=== PATIENT | female | born 1945 | race Caucasian/White ===

== ENCOUNTER 2020-04-01 19:06 | Inpatient (IN) | payer MEDICARE, SELFPAY ==
[~2020-04-01] VITALS: Ht 157.5 cm; Wt 55.8 kg
[~2020-04-01 19:06] MED LIST: BUPIVACAINE /DEX PF 0.75% SPINAL 2 ML AMP INJ ONE; LR 1,000 ML IV.SOLN IV ONE; MORPHINE SULFATE 10MG/10ML PF AMP EP ONE; NS IRRIG SOLN 1000 ML IR ONE
[2020-04-01 19:15] VITALS: BP_SYST 165
--- NOTE | 2020-04-01 19:15 | NUR ---
Patient to ER bed 7 to gown for evaluation. Side rails up. Report given to RANJANA.
--- NOTE | 2020-04-01 19:20 | NUR ---
ER at bedside examining patient.
--- NOTE | 2020-04-01 19:25 | NUR ---
Pt biba for bed sores/pressure ulcers. Pt is from home, non verbal, moans to pain, can track w/ her eyes and withdrawal of extremeties to pain. Pt has a hx of Dementia, HTN and hyperlipidemia.
[2020-04-01] MEDS ORDERED: cefTRIAXone 1 GM in D5W 50 ML IV ONE (19:45)
[2020-04-01] MEDS ORDERED: VANCOMYCIN HCL 1,000 MG in NS 250 ML IV ONE (19:45)
[2020-04-01] MEDS ORDERED: metroNIDAZOLE 500 mg/NS 100 ML IV ONE (19:45)
--- NOTE | 2020-04-01 19:50 | NUR ---
technical architect at bed side.
--- NOTE | 2020-04-01 21:00 | NUR ---
Placement done by Dr. Ortez via ultra sound. IV placed #20 gauge angiocath placed to LAC. Use of asceptic technique. Opsite placed over site. No evidence of infiltration noted. Patient tolerated well.
[2020-04-01] MEDS ORDERED: VANCOMYCIN HCL 1000 MG/VIAL IV ONE (21:13)
[2020-04-01] MEDS ORDERED: cefTRIAXone 1 GM IVPB PREMIX 50 ML IV ONE (21:15)
[2020-04-01] MEDS ORDERED: NACL 0.9% 1,000 ML IV ONE ×2 (21:15→23:00)
--- NOTE | 2020-04-01 21:15 | NUR ---
Spoke to granddaughter, stated she care for patient. Pt has a homehealth nurse x 3 time s a week. Pressure ulcers first appeared 07/2019 and have been healing but wounds re opened on 12/2019. Pt was sent to ER today because sores have been increasingly getting worse.
[2020-04-01 21:22] LABS: BASOPHILS # (AUTO) 0.1 K/uL (0.0-0.2); BASOPHILS % (AUTO) 0.4 % (0.0-2.0); EOSINOPHILS # (AUTO) 0.1 K/uL (0.0-0.4); EOSINOPHILS % (AUTO) 0.4 % (0.0-4.0); HEMATOCRIT 27.6 % (36-48); HEMOGLOBIN 8.6 g/dL (12.0-16.0); LYMPHOCYTES # (AUTO) 1.7 K/uL (1.0-5.5); LYMPHOCYTES % (AUTO) 7.1 % (20.5-51.5); MEAN CORPUSCULAR HEMOGLOBIN 26 pg (27-31); MEAN CORPUSCULAR HGB CONC 31 % (32-36); MEAN CORPUSCULAR VOLUME 84 fL (79.0-98.0); MONOCYTES # (AUTO) 1.8 K/uL (0.0-1.0); MONOCYTES % (AUTO) 7.9 % (1.7-9.3); NEUTROPHILS # (AUTO) 19.7 K/uL (1.8-7.7); NEUTROPHILS % (AUTO) 84.2 % (40.0-70.0); PLATELET COUNT (AUTO) 513 K/uL (130-430); RED BLOOD CELL COUNT(AUTO) 3.28 MIL/uL (4.2-6.2); WHITE BLOOD COUNT (AUTO) 23.4 K/uL (4.8-10.8)
[2020-04-01 21:33] LABS: BILIRUBIN,URINE NEGATIVE (NEGATIVE); BLOOD, URINE NEGATIVE (NEGATIVE); CLARITY/URINE SL CLOUDY (CLEAR); COLOR,URINE YELLOW (YELLOW); GLUCOSE,URINE NEGATIVE (NEGATIVE); KETONES,URINE NEGATIVE (NEGATIVE); LEUKOCYTE ESTERASE ,URINE 3+ (NEGATIVE); NITRITE, URINE POSITIVE (NEGATIVE); PH,URINE 7.5 (5.0-8.0); PROTEIN URINE NEGATIVE (NEGATIVE)
[2020-04-01 21:47] LABS: INR 1.3 (0.8-1.2); PROTHROMBIN TIME 12.9 SECS (9.5-12.5)
[2020-04-01 21:48] LABS: ANION GAP 9 (5-15); CHLORIDE 95 mmol/L (98-107); CREATININE 0.55 mg/dL (0.55-1.30); GLUCOSE 110 mg/dL (70-99); SODIUM SERUM 129 mmol/L (136-145); UREA NITROGEN, BLOOD 16 mg/dL (8-21)
[2020-04-01 22:00] LABS: BACTERIA,URINE MANY /HPF (None Seen); RBC,URINE 0-3 /HPF (0-3); WBC,URINE 50-80 /HPF (0-3)
[2020-04-01 22:01] LABS: MUCUS,URINE None Seen /LPF (None Seen); URINE AMORPHOUS PHOSPHATES 2+ /HPF (None Seen)
[2020-04-01 22:03] LABS: ALANINE AMINOTRANSFERASE 215 U/L (12-78); ALBUMIN 1.4 g/dL (3.4-4.8); ASPARTATE AMINOTRANSFERASE 162 U/L (10-37); TOTAL BILIRUBIN 0.3 mg/dL (0.0-1.0)
--- NOTE | 2020-04-01 22:10 | NUR ---
Pt taken to CT via rjayro.
--- NOTE | 2020-04-01 23:11 | NUR ---
Pressure ulcers assessed by . Both pressure ulcers are in diffrent stages. Both ulcers seemed to be in different stages. New dressings recently place by [facility]. Pt position to the L side.
[2020-04-01] MEDS ORDERED: LORazepam 2 MG/ML VIAL IVP PRN (23:15)
[2020-04-01] MEDS ORDERED: HYDROcodone/ACETAMIN 5-325 MG TAB (NORCO/ VICODIN) PO PRN (23:15)
--- NOTE | 2020-04-01 23:23 | NUR ---
Patient will be admitted to care of DR. BLEVINS. Admitted to TELEMENTARY unit. Awaiting placement from charge nurse Wei. Belongings list completed. Complete and up to date summary report printed. SBAR report to be given at bedside with opportunity for questions.
[2020-04-01] MEDS ORDERED: hydrALAZINE HCL 20 MG/ML VIAL IVP PRN (23:45)
[2020-04-02 00:15] VITALS: BP_SYST 145
[2020-04-02 00:30] VITALS: BP_SYST 145
--- NOTE | 2020-04-02 00:30 | NUR ---
pt.receivced via the er-dept.rn has provided the pt's data/info.pt.presents general status stable.[id number].pt.presents g-tube intact patent clamped.pt.presents speech status.non-verbal.pt.presents iv access location;lt.upper bicept,lt.hand;iv fluids infusing pt.assessed.general cutaneous integrity compromised.wounds extant;sacrum,rt/lt hips.bilateral heels;erythema;blanchable.v/s assessed;values w/in normal limits.o2-sat%=98%via o2 therapy via nasal cannulae@the rate;3l/min.call light/telephone w/in reach reach of the pt./ Addendum: 04/02/20 at 0928 by Eber York RN i have photographed the wounds;sacrum,rt/t hips,heels.
--- NOTE | 2020-04-02 01:00 | NUR ---
pt.assessed.pt.assessed for cleanliness.pt.repositioned.i have initiated the iv fluids.d5/ns via the peripheral line:lt.upper arm@the rate:80ml/hr. general status stable.respiratory status stable:02-sat%=98%.per flacc pain mgx pt.absent facial grimaces/body posturing.call light/ telephone placed w/in the reach of the pt.
[2020-04-02] MEDS: D5NS 1,000 ML IV SCH ×2 (01:34→14:22)
[2020-04-02] MEDS ORDERED: metroNIDAZOLE 500 mg/NS 100 ML IV ONE (02:14)
--- NOTE | 2020-04-02 03:00 | NUR ---
pt.assessed.pt.assessed for cleanliness.pt.repositioned.iv access intact patent iv fluids infusing.delarosa cath intact;patent urine content present. per flacc pain mgx pt.absent facial grimaces/body posturing.general status stable.respiratory status stable unlabored o2-sat%= 98%.call light/telephone placed w/in reach of the pt.
--- NOTE | 2020-04-02 05:00 | NUR ---
pt.assessed.pt.assessed for cleanliness.pt.repositioned.iv access intact;patent iv fluids infusing.delarosa cath intact patent urine content present.general status stable.respiratory status stable;unlabored;02-sat%=98%.call light/telephone placed w/in reach of the pt.
[2020-04-02 06:08] LABS: ANION GAP 7 (5-15); CALCIUM 8.2 mg/dL (8.4-11.0); CHLORIDE 102 mmol/L (98-107); GLUCOSE 98 mg/dL (70-99); POTASSIUM 4.3 mmol/L (3.5-5.1); SODIUM SERUM 135 mmol/L (136-145); UREA NITROGEN, BLOOD 12 mg/dL (8-21)
[2020-04-02] MEDS: metroNIDAZOLE 500 mg/NS 100 ML IV SCH ×3 (06:25→21:56)
--- NOTE | 2020-04-02 06:30 | NUR ---
pt.assessed.i have attended to the wound care.i have collected the cx;wounds;sacrum;rt/lt.hips.i have sent to the lab.pt.cleaned, pt.repositioned.i have administered flagyl;abx;ivpb.0600a dose.iv access intact patent iv fluids infusing.call light/telephone placed w/in reach of the pt.pt's grand/dtr has telephoned the unit.i have spokened w the grand/dtr i have apprised the grand dtr of the pt's current general status w/in the parameters of nsg.
--- NOTE | 2020-04-02 07:43 | NUR ---
AM ROUNDS: PATIENT SLEEPING DURING ROUNDS. RECEIVED REPORT FROM NIGHT NURSE JAKI. IV FLUIDS RUNNING AT LEFT UPPER ARM.#2 IV SALINE LOCK AT LEFT HAND. O2 3L/NC,GOOD SATURATION. MARQUES DRAINING TO YELLOW URINE. BED LOCKED AT LOWEST POSITION. BED ALARM ON. CONDITION GUARDED.
--- NOTE | 2020-04-02 07:51 | NUR ---
Nutrition Update Sterling scale 9 noted. Pt admitted for Sepsis and Acute Cholecystis Diet: NPO BMI: 26.6 kg/m2 RD to follow per nutrition care standards.
[2020-04-02 08:28] LABS: BASOPHILS # (AUTO) 0.1 K/uL (0.0-0.2); BASOPHILS % (AUTO) 0.7 % (0.0-2.0); EOSINOPHILS # (AUTO) 0.2 K/uL (0.0-0.4); EOSINOPHILS % (AUTO) 1.1 % (0.0-4.0); HEMATOCRIT 25.7 % (36-48); HEMOGLOBIN 8.2 g/dL (12.0-16.0); LYMPHOCYTES # (AUTO) 1.9 K/uL (1.0-5.5); LYMPHOCYTES % (AUTO) 9.6 % (20.5-51.5); MEAN CORPUSCULAR HEMOGLOBIN 28 pg (27-31); MEAN CORPUSCULAR HGB CONC 32 % (32-36); MEAN CORPUSCULAR VOLUME 87 fL (79.0-98.0); MONOCYTES # (AUTO) 1.8 K/uL (0.0-1.0); MONOCYTES % (AUTO) 9.5 % (1.7-9.3); NEUTROPHILS # (AUTO) 15.3 K/uL (1.8-7.7); NEUTROPHILS % (AUTO) 79.1 % (40.0-70.0); PLATELET COUNT (AUTO) 510 K/uL (130-430); RED BLOOD CELL COUNT(AUTO) 2.95 MIL/uL (4.2-6.2); RED CELL DISTRIBUTION WIDTH 18.9 % (9.0-15.0); WHITE BLOOD COUNT (AUTO) 19.3 K/uL (4.8-10.8)
--- NOTE | 2020-04-02 08:30 | NUR ---
MD ROUNDS: DR BLEVINS SEEN PATIENT IN THE ROOM,BUT UNABLE TO OBTAIN MEDICAL HISTORY DUE TO LIMITED MENTATION.WITH ORDERS FOR SSW TO GET FAMILY NUMBER ,SO HE CAN TALK TO THEM. WITH ORDERS HOLD TUBE FEEDS FOR NOW.
[2020-04-02] MEDS: PANTOPRAZOLE SODIUM 40 MG/VIAL (PROTONIX) IVP SCH (08:57)
--- NOTE | 2020-04-02 09:00 | NUR ---
CONSULTATION PAGED/CALLED Reason for Consultation: PRESURE ULCERS, POSSIBLE ACUTE YAMILA Person Who was Notified: LEFT MESSAGE 09:10 Consulting Physician: ABDIEL SOSA Planishing Hammer Operator Specialty: SURGON Ordering Physician: NARINDER BLEVINS
--- NOTE | 2020-04-02 09:30 | NUR ---
POA UPDATES: SSW F/U WITH DAUGHTER AND SPOKE WITH SONAL MAYS(POA) P#[phone] UPDATES GIVEN AND SAID OKAY TO GIVE RELATED MEDICAL INFORMATION TO THE FOLLOWING PERSONS: INGRID(NIECE) AND TONE MUSEUM EDUCATOR.
--- NOTE | 2020-04-02 09:31 | NUR ---
SS Note Patient referred to [employer] to obtain contact information. Spoke with RN, MT, ED, Admitting. Patient brought in with [facility]. They had the number of the person who called them. Phoned. Contacts: Glen Padilla, daughter, conservator, Wendy Reynolds, granddaughter, caregiver, Shared information with Admitting and notified the number listed for Dr Genie Fontenot, that contact numbers were now available. Face sheet will be updated and new one put in the chart. Patient's insurance updated-[employer]. CM aware.
[2020-04-02 11:34] VITALS: BP_SYST 118
--- NOTE | 2020-04-02 12:00 | NUR ---
DC Planning: Updated pt's status to [facility] dept: s/w Radha, Supervisor Tank Cleaning : dcp for surgery consultation for kim sacrum ulcer with possible I&D and possible acute cholecystitis. The transfer to network is pending on budget consultant's recommendation. Per Radha, the assigned CM will review the case and will call me to get clinical update in am.
--- NOTE | 2020-04-02 13:01 | NUR ---
RN ROUNDS: PATIENT AWAKE,NON VERBAL. O2 MAINTAINED AT 3L/NC. NOT IN ANY RESPIRATORY DISTRESS.
--- NOTE | 2020-04-02 15:30 | NUR ---
WOUND EVALUATION: Wound Consult received from Dr. Fred Fontenot. Thank you, Dr. Fontenot, for the consult. Patient received in a Shaista Bed with an Isoflex MATT mattress, awake, non-verbal, non-responsive to verbal commands. Patient is unable to turn in bed independently. Sterling Score is a 9. Past Medical History: Dementia, non-verbal, bedbound, pressure injuries to Sacral and bilateral hip areas for months. Recent Labs: WBC 19.3, RBC 2.95, hemoglobin 8.2, hematocrit 25.7, sodium 135, albumin 1.4, PT 12.9, INR 1.3. Microbiology: Blood culture results x2 in progress. Urine culture results in progress. Sacral wound culture results in progress. Bilateral hip wound culture results in progress. Intrinsic factors that delay wound healing: Severe Hypoalbuminemia. Extrinsic factors that delay wound healing: Decreased Immobility. Wound Assessment: 1. Sacrococcygeal area: Stage IV pressure ulcer, present on admission. Wound bed has 40% pink tissue, 30% black slough, 30% yellow slough. Mild odor, scant yellow purulent drainage. Sinus tract around 2 o'clock where bone is palpable. Undermining present from 712 o'clock (2.2 cm at 7 o'clock; 5.4 cm at 9 o'clock; 3.4 cm at 12 o'clock). Wound measures 7.5 cm x 9.5 cm x 2.6 cm. Recommend: Cleanse wound with normal saline. Apply moisture barrier cream to maeve-wound. Apply Venelex ointment to wound bed. Place one 2.2 inch TenderWet dressing onto wound bed. Cover with Sacral foam dressing. Perform wound care daily, and as needed for dressing soiling or dislodgement. 2. Left Lateral Hip near Greater Trochanter: Unstageable pressure ulcer, present on admission. Wound bed has 60% yellow slough, 30% black slough, 10% pink tissue. Mild odor, no drainage. Periwound intact. Wound measures 5.5 cm x 6.5 cm x 1.4 cm. Recommend: Cleanse wound with normal saline. Apply moisture barrier cream to maeve-wound. Apply Venelex ointment to wound bed. Place one 1.6 inch TenderWet dressing onto wound bed. Cover with foam dressing. Perform wound care daily, and as needed for dressing soiling or dislodgement. 3. Right Lateral Hip near Greater Trochanter: Unstageable pressure ulcer, present on admission. Wound bed has 70% yellow slough, 30% black slough. Mild odor, no drainage. Periwound intact. Wound measures 4.7 cm x 6.0 cm x 0.8 cm. Recommend: Cleanse wound with normal saline. Apply moisture barrier cream to maeve-wound. Apply Venelex ointment to wound bed. Cover with foam dressing. Perform wound care daily, and as needed for dressing soiling or dislodgement. Also recommend: Reposition patient side to side only every 2 hours with pillow support and off-load pressure areas with pillows for pressure re-distribution. Offload, elevate and float bilateral heels with one pillow lengthwise under each extremity at all times. Perform skin care and monitor skin integrity Q shift. Use moisture barrier cream on buttocks and other moisture susceptible areas QID and as needed for soiling. Maintain patient on a low air-loss mattress.
[2020-04-02 15:37] VITALS: BP_SYST 122
--- NOTE | 2020-04-02 16:24 | NUR ---
SS Note Discussed with Dexter RN, Wound Care nurse. Patient's wounds are severe on both hips and sacrum. The rest of the skin is in good condition and patient does appear to be well cared for overall. It does not seem an APS report is appropriate. However, patient will need more care, maybe a hospital bed, home health or SNF care upon discharge. Patient is covered by [employer] insurance. Discussed with Aj CABRERA
[2020-04-02] MEDS: BALSAM PERU/CASTOR OIL 60 GM OINT...G. TP SCH (16:30)
--- NOTE | 2020-04-02 16:38 | NUR ---
COVID 19 TEST: COVID 19 PCR SPECIMEN AT LEFT NARES,SENT TO LAB.
--- NOTE | 2020-04-02 18:37 | NUR ---
CLOSING NOTES: MAINTAINED ON O2 3L/NC,GOOD SATURATION. IV FLUIDS RUNNING WELL.MARQUES IN SITU.BED LOCKED AT LOWEST POSITION. BED ALARM ON. PRACTICE GUIDELINES MET THROUGH OUT SHIFT.
[2020-04-02 20:39] VITALS: BP_SYST 135
--- NOTE | 2020-04-02 21:15 | NUR ---
DR IAN HARRINGTON here to see patient did Receive new orders .
[2020-04-02] MEDS: cefTRIAXone 1 GM in D5W 50 ML IV SCH (21:56)
[2020-04-02] MEDS: VANCOMYCIN HCL 750 MG in NS 250 ML IV SCH (21:56)
[2020-04-02] MEDS: MORPHINE 2 MG/ML INJ. SYRINGE IVP PRN (22:03)
--- NOTE | 2020-04-02 22:45 | NUR ---
LORIN Bolus BID not able to administer bolus , d/t Gastric Tube connection ports not available , Charge Nurse made aware , will up date .
--- NOTE | 2020-04-02 23:51 | NUR ---
HIDA SCAN FOR THIS AM Patient to be NPO @ midnight / .
--- NOTE | 2020-04-02 23:53 | NUR ---
Turning & Reposition patient on schedule , off loading with pillows comfort measures implemented kept clean & dry as needed .
--- NOTE | 2020-04-03 01:23 | NUR ---
MORPHINE SULFATE 2 MG IVP HELPFUL FOR GENERAL PAIN 04/02/20 @ 3528
[2020-04-03 02:21] VITALS: BP_SYST 129
[2020-04-03 03:37] LABS: TOTAL IRON BIND. CAPACITY 353 ug/dL (250-450)
--- NOTE | 2020-04-03 04:37 | NUR ---
NPO , STATUS FOR AM Procedure HIDA scan .
--- NOTE | 2020-04-03 05:28 | NUR ---
WOUND CARE IMPLEMENTED LEFT & Right Hip & sacrum as ordered , patient tolerated .
[2020-04-03] MEDS: D5NS 1,000 ML IV SCH ×2 (06:07→12:45)
[2020-04-03] MEDS: metroNIDAZOLE 500 mg/NS 100 ML IV SCH ×3 (06:08→22:08)
[2020-04-03 07:18] LABS: BASOPHILS # (AUTO) 0.2 K/uL (0.0-0.2); BASOPHILS % (AUTO) 1.2 % (0.0-2.0); EOSINOPHILS # (AUTO) 0.3 K/uL (0.0-0.4); HEMATOCRIT 29.5 % (36-48); LYMPHOCYTES # (AUTO) 1.7 K/uL (1.0-5.5); LYMPHOCYTES % (AUTO) 11.7 % (20.5-51.5); MEAN CORPUSCULAR HEMOGLOBIN 27 pg (27-31); MEAN CORPUSCULAR HGB CONC 31 % (32-36); MEAN CORPUSCULAR VOLUME 89 fL (79.0-98.0); MONOCYTES # (AUTO) 1.2 K/uL (0.0-1.0); MONOCYTES % (AUTO) 8.2 % (1.7-9.3); NEUTROPHILS % (AUTO) 76.9 % (40.0-70.0); PLATELET COUNT (AUTO) 376 K/uL (130-430); RED BLOOD CELL COUNT(AUTO) 3.31 MIL/uL (4.2-6.2); WHITE BLOOD COUNT (AUTO) 14.3 K/uL (4.8-10.8)
[2020-04-03 07:33] LABS: ALANINE AMINOTRANSFERASE 139 U/L (12-78); ALBUMIN 1.5 g/dL (3.4-4.8); ANION GAP 9 (5-15); ASPARTATE AMINOTRANSFERASE 84 U/L (10-37); CALCIUM 8.8 mg/dL (8.4-11.0); CHLORIDE 106 mmol/L (98-107); CREATININE 0.59 mg/dL (0.55-1.30); GLUCOSE 97 mg/dL (70-99); POTASSIUM 4.5 mmol/L (3.5-5.1); SODIUM SERUM 138 mmol/L (136-145); TOTAL BILIRUBIN 0.4 mg/dL (0.0-1.0); UREA NITROGEN, BLOOD 9 mg/dL (8-21)
[2020-04-03 07:58] VITALS: BP_SYST 151
--- NOTE | 2020-04-03 08:00 | NUR ---
Note Dr Shanita Man at pt's bedside assessing pt at this time. Notified MD that GT is different from what is used in [facility] - unable to given any Bolus or continuous GT feedings at this time. Pt is non verbal and only responds to light stimuli at this time. Pt has been NPO since midnight. No SOB/resp distress or pain/discomfort noted at this time. Tele unit attached and intact at this time. IV in left AC and left hand intact and patent. GT site intact and dry with dressing. No needs noted at this time. Pt next to nurses' station for close observation for needs and care. Call light within reach.
[2020-04-03] MEDS: BALSAM PERU/CASTOR OIL 60 GM OINT...G. TP SCH (08:05)
[2020-04-03] MEDS: PANTOPRAZOLE SODIUM 40 MG/VIAL (PROTONIX) IVP SCH (08:14)
--- NOTE | 2020-04-03 08:25 | NUR ---
Note Pt's wounds were cleaned and dressed by LISHA FOSTER on sacral and left/right hip. Dressing CDI at this time. Pt off the floor via cesia to Nuclear Medicine dept at this time. Addendum: 04/03/20 at 1039 by Rossana Hughes RN IVF's were saline locked Addendum: 04/03/20 at 1040 by Rossana Hughes RN tele unit was removed and put on bedside table.
--- NOTE | 2020-04-03 08:51 | NUR ---
Dietitian Recommendations *Recommend TF Jevity 1.5 continuously via GT at goal rate of 45 ml/hr. Initiate TF at 20 ml/hr and advance by 10 ml q4h until goal rate is reached. FWF 160 ml q6h. -Provides 1620 kcal, 69 g protein, 821 ml free H2O, meeting 91% of upper end of estimated calorie needs and 90% of lower end of estimated protein needs. *Recommend provide Tip BID as modular to provide 14g arginine and 14g glutamate to promote wound healing. Please see Nutrition Assessment for details. REMYRD
--- NOTE | 2020-04-03 10:29 | NUR ---
PAGED PAGED DOCTOR AT [phone] SPOKE WITH KACEY.
--- NOTE | 2020-04-03 11:25 | NUR ---
Note Dr Shanita Man called back and stated pt is stable to be transferred to [facility]. Aj ANGEL called to notify.
[2020-04-03 12:23] LABS: AMYLASE 85 U/L (0-100); LACTATE DEHYDROGENASE 239 U/L (81-234); LIPASE 76 U/L (73-393)
--- NOTE | 2020-04-03 12:35 | NUR ---
Note Pt back fro Nuclear Medicine - HIDA scan. In bed/room. IVF's reconnected and Tele unit reattached. Pt stable. No needs noted at this time. Call light within reach.
--- NOTE | 2020-04-03 12:46 | NUR ---
DC Planning: The pt is stable for transfer to network and per surgery consult: to I/D kim sacrum ulcer, HIDA to confirm Cholecystitis. Covid test is pending. -- JEANNE Stephens is to update [facility] dept and pt's dtr/ Destini # [phone].
--- NOTE | 2020-04-03 13:41 | NUR ---
Anoop w/ Milagro at [place]-Pt is from [facility]-no beds available at [place]-will authorize in pt stay at [place] [facility] for today.
--- NOTE | 2020-04-03 15:50 | NUR ---
Note Pt off the floor via bed to OR for "Debridement of sacral wound with possible Wound vac placement." and "Exchange of GT ". Wound vac and supplies received from Dexter barrel line operator - on pt's bed for surgery.
[2020-04-03 16:31] VITALS: BP_SYST 123
--- NOTE | 2020-04-03 16:57 | NUR ---
CONSULTATION ORDER BY VALERIO Milton FOR CONSULTING TONEY BASSETT FOR CONSULT OF FEEDING
[2020-04-03] MEDS ORDERED: ONDANSETRON HCL 4 MG/2 ML VIAL IVP PRN (17:15)
[2020-04-03] MEDS ORDERED: fentaNYL CITRATE/PF 100 MCG/2 ML AMP IVP PRN ×2 (17:15)
[2020-04-03] MEDS ORDERED: POLYMYXIN 500,000/BACIT.10,000 UNITS in NS IRR 1 L IR ONE (17:48)
--- NOTE | 2020-04-03 18:15 | NUR ---
Note Dr Roberts called and stated he would come and see pt tomorrow. Pt still in OR/PACU
--- NOTE | 2020-04-03 18:26 | NUR ---
Note Pt still in PACU - not on the floor yet.
--- NOTE | 2020-04-03 18:40 | NUR ---
Note Jah (granddaughter) called and an update was given at this time.
[2020-04-03] MEDS ORDERED: ACETAMINOPHEN WITH CODEINE 12.5 ML UDC GT PRN ×2 (19:15)
[2020-04-03 19:20] VITALS: BP_SYST 119
--- NOTE | 2020-04-03 19:20 | NUR ---
Initial note/arrived from OR: Received report from dayshift RN. Patient arrived back to the unit at this time, report received from OR nurse CRISTIAN Young. Patient is resting comfortably in bed. No acute distress, tolerating room air, even and unlabored breathing. IV site noted to left AC and left hand, no infiltration to both sites. Hernandez catheter draining yellow urine to gravity. GJ-tube is clamped. Wound vac noted to right hip, dressings noted to sacrum and left hip. Dressings clean, dry, intact. Call light is with patient. Safety, fall precautions in place. Will continue with plan of care.
[2020-04-03] MEDS: cefTRIAXone 1 GM in D5W 50 ML IV SCH (20:08)
[2020-04-03] MEDS: VANCOMYCIN HCL 750 MG in NS 250 ML IV SCH (20:40)
--- NOTE | 2020-04-03 22:05 | NUR ---
Pain: Patient is awake and appears to be in pain as evidenced by her groaning, squirming in bed, and elevated BP and pulse rate compared to baseline. Morphine 2 MG IV indicated. Medication administered via left upper arm IV site, no infiltration noted. Call light is with patient. Will continue monitoring.
[2020-04-03] MEDS: MORPHINE 2 MG/ML INJ. SYRINGE IVP PRN (22:08)
[2020-04-03 22:30] VITALS: BP_SYST 121
--- NOTE | 2020-04-03 22:50 | NUR ---
Tubefeeding: Endorsed by clint FOSTER that patient's family would drop off tubefeeding equipment from home as patient's GJ-tube is apparently incompatible with in-hospital equipment. Family member Jah was able to drop off a box of Fibersource HN formula, a tubefeeding pump, tubing, and syringes. Informed by Jah that patient receives Fibersource HN at 80 ML/HR via J-tube. Dr. Justin, on-call for Dr. Roberts, was paged for tubefeeding orders. Order received to continue patient's home feeding, but to run Fibersource HN at 50 ML/HR. Verified by read-back, RN to input.
[2020-04-04 00:17] VITALS: BP_SYST 121
--- NOTE | 2020-04-04 01:23 | NUR ---
Rounds: Patient is asleep. Does not show any acute distress. Tolerating room air. IV fluids infusing well. Tubefeeding via J-tube in place. Hernandez catheter draining to gravity. Wound vac in place, dressing is clean, dry, intact. Call light is with patient. Will continue monitoring.
[2020-04-04] MEDS: D5NS 1,000 ML IV SCH (03:46)
--- NOTE | 2020-04-04 04:04 | NUR ---
Rounds: Patient is resting in bed, no acute distress. Tolerating room air. IV site to left upper arm patent and intact, no infiltration. Left hand IV saline locked. Tubefeeding in place as ordered to J-tube, no leaking noted. Wound vac in place, dressings are clean, dry, intact. Hernandez catheter draining to gravity. Call light is with patient. Will continue monitoring.
[2020-04-04] MEDS: metroNIDAZOLE 500 mg/NS 100 ML IV SCH ×2 (05:02→13:56)
--- NOTE | 2020-04-04 06:09 | NUR ---
Closing note: Patient is resting comfortably in bed. No acute distress on room air. Even and unlabored breathing. IV sites benign and intact, IV fluids infusing as ordered. Tubefeeding in place to J-tube per MD order. Hernandez catheter draining well to gravity. Wound vac to right hip in place. Dressings are clean, dry, and intact. All needs met. Safety, fall precautions observed. Call light is with patient. Will endorse care to dayshift RN.
[2020-04-04 07:01] LABS: BASOPHILS # (AUTO) 0.1 K/uL (0.0-0.2); BASOPHILS % (AUTO) 0.4 % (0.0-2.0); EOSINOPHILS # (AUTO) 0.3 K/uL (0.0-0.4); EOSINOPHILS % (AUTO) 1.6 % (0.0-4.0); HEMATOCRIT 24.5 % (36-48); HEMOGLOBIN 7.7 g/dL (12.0-16.0); LYMPHOCYTES # (AUTO) 1.1 K/uL (1.0-5.5); LYMPHOCYTES % (AUTO) 7.2 % (20.5-51.5); MEAN CORPUSCULAR HEMOGLOBIN 27 pg (27-31); MEAN CORPUSCULAR HGB CONC 32 % (32-36); MEAN CORPUSCULAR VOLUME 86 fL (79.0-98.0); MONOCYTES # (AUTO) 1.3 K/uL (0.0-1.0); MONOCYTES % (AUTO) 8.1 % (1.7-9.3); NEUTROPHILS # (AUTO) 13.1 K/uL (1.8-7.7); NEUTROPHILS % (AUTO) 82.7 % (40.0-70.0); PLATELET COUNT (AUTO) 411 K/uL (130-430); RED BLOOD CELL COUNT(AUTO) 2.86 MIL/uL (4.2-6.2); WHITE BLOOD COUNT (AUTO) 15.9 K/uL (4.8-10.8)
[2020-04-04 07:30] VITALS: BP_SYST 132
[2020-04-04 07:35] LABS: ANION GAP 8 (5-15); CALCIUM 8.2 mg/dL (8.4-11.0); CHLORIDE 107 mmol/L (98-107); CREATININE 0.69 mg/dL (0.55-1.30); GLUCOSE 180 mg/dL (70-99); PHOSPHORUS 2.3 mg/dL (2.7-4.5); POTASSIUM 3.5 mmol/L (3.5-5.1); SODIUM SERUM 139 mmol/L (136-145); UREA NITROGEN, BLOOD 9 mg/dL (8-21)
[2020-04-04 08:00] VITALS: BP_SYST 124
[2020-04-04] MEDS: VANCOMYCIN HCL 1 GM/NS PREMIX 250 ML IV SCH ×2 (09:02→21:57)
[2020-04-04] MEDS: BALSAM PERU/CASTOR OIL 60 GM OINT...G. TP SCH (09:11)
[2020-04-04] MEDS: PANTOPRAZOLE SODIUM 40 MG/VIAL (PROTONIX) IVP SCH (09:11)
--- NOTE | 2020-04-04 09:40 | NUR ---
DC Planning: faxed updated progress notes to [facility] de[facility] # [phone]. Unable to speake with [facility], I was on hold for more than 15 mins , will try again.
--- NOTE | 2020-04-04 10:02 | NUR ---
Patient is in bed resting. No signs and symptoms of pain, distress, or shortness of breath. AM care needs met. Spoke with family member regarding patients status. Patient is responsive to light touch. Bed in low position. Two side rails up. Will continue to monitor patient throughout shift.
[2020-04-04] MEDS: MORPHINE 2 MG/ML INJ. SYRINGE IVP PRN (10:35)
[2020-04-04 12:00] VITALS: BP_SYST 124
--- NOTE | 2020-04-04 14:54 | NUR ---
CONSULTATION PAGED REASON FOR CONSULTATION:BACTEREMIA, WOUNDS UTI WAS CONSULT CALLED?Y PERSON WHO WAS NOTIFIED:JOEY CONSULTING PHYSICIAN:CRISTY SOLO BIG DATA ADMIN SPECIALTY:INFECTIOS DISEASE BIG DATA ADMIN PHONE NUMBER:[phone] REQUESTING PHYSICIAN:ESTHER VALDEZ
[2020-04-04] MEDS: NACL 0.9% 1,000 ML IV SCH ×2 (15:00→21:57)
[2020-04-04] MEDS ORDERED: K PHOS 15 MM in NS 250 ML IV ONE (15:00)
[2020-04-04 16:00] VITALS: BP_SYST 134
[2020-04-04] MEDS: ERTAPENEM SODIUM 1 GM in NS 50 ML IV SCH (18:21)
--- NOTE | 2020-04-04 18:45 | NUR ---
Patient is in bed resting. Patient is alert and oriented to herself. Patient is responsive to light touch. Bed in low position. All care needs met. 2 side rails up. Will give report to night nurse.
--- NOTE | 2020-04-04 19:30 | NUR ---
Opening Note: Received report from dayshift nurse. Patient is resting in bed without s/s of respiratory distress or discomfort. She is alert x1 to name. Pt has 20g IV upper arm patent and intact. 20 g LFA was infiltrated and removed. She is on room air with not adventitious breath patterns. Patient is on fiber source @ 50 mL/hr tolerating well. Hernandez catheter draining to gravity. Wound vac is present and draining on right hip with no leaks noted. Dressing is dry, clean, and intact. Patient is laying in bed at 30 degrees. Bed is at lowest position with alarm on.
--- NOTE | 2020-04-04 22:00 | NUR ---
Medication Administration: Patient is resting in bed with no s/s of distress, breathing pattern is regular and unlabored on room air. Vital signs are within normal limits. GJ tube was checked, dressing is intact. There is no residual, flushed with water. Administered Vancomycin as ordered. Attempted to educate patient regarding side effects of antibiotics, but was unable due to A & O X1. Patient is tolerating medication well. Bed is at lowest position with alarm on. Will continue to monitor patient.
[2020-04-05] VITALS: BP_SYST 145
[2020-04-05] MEDS: MORPHINE 2 MG/ML INJ. SYRINGE IVP PRN (00:07)
--- NOTE | 2020-04-05 00:17 | NUR ---
Rounding/Medication: Patient was found moaning and grimacing, FLACC of 8/10. Administered Morphine as ordered. Will reassess patient for effects of medication.
--- NOTE | 2020-04-05 02:00 | NUR ---
Rounding: Patient is resting in bed and appears to be asleep with no s/s of distress or discomfort. Bed is at lowest position and alarm is on. Will continue to monitor patient.
[2020-04-05 06:47] LABS: BASOPHILS # (AUTO) 0.1 K/uL (0.0-0.2); BASOPHILS % (AUTO) 0.9 % (0.0-2.0); EOSINOPHILS # (AUTO) 0.6 K/uL (0.0-0.4); EOSINOPHILS % (AUTO) 3.6 % (0.0-4.0); HEMATOCRIT 26.7 % (36-48); HEMOGLOBIN 8.4 g/dL (12.0-16.0); LYMPHOCYTES # (AUTO) 2.1 K/uL (1.0-5.5); LYMPHOCYTES % (AUTO) 12.8 % (20.5-51.5); MEAN CORPUSCULAR HEMOGLOBIN 27 pg (27-31); MEAN CORPUSCULAR HGB CONC 31 % (32-36); MEAN CORPUSCULAR VOLUME 87 fL (79.0-98.0); MONOCYTES # (AUTO) 1.4 K/uL (0.0-1.0); MONOCYTES % (AUTO) 8.2 % (1.7-9.3); NEUTROPHILS # (AUTO) 12.5 K/uL (1.8-7.7); NEUTROPHILS % (AUTO) 74.5 % (40.0-70.0); PLATELET COUNT (AUTO) 390 K/uL (130-430); RED BLOOD CELL COUNT(AUTO) 3.07 MIL/uL (4.2-6.2); WHITE BLOOD COUNT (AUTO) 16.7 K/uL (4.8-10.8)
--- NOTE | 2020-04-05 07:03 | NUR ---
Closing Note: Patient is resting in bed without s/s of respiratory distress or discomfort. She is alert x1 to name. Pt has 20g IV upper arm patent and intact. She is on room air with not adventitious breath patterns. Patient is on fiber source @ 50 mL/hr tolerating well. Hernandez catheter draining to gravity. Wound vac is present and draining on right hip with no leaks noted. Bed is at lowest position with alarm on. Will endorse care to dayshift nurse.
--- NOTE | 2020-04-05 07:10 | NUR ---
opening note received bedside SBAR from night rn, patient in bed, respirations even non labored, bed in low and locked position, call light within reach,
[2020-04-05 07:12] LABS: ALANINE AMINOTRANSFERASE 76 U/L (12-78); ALBUMIN 1.4 g/dL (3.4-4.8); ANION GAP 8 (5-15); CHLORIDE 111 mmol/L (98-107); CREATININE 0.55 mg/dL (0.55-1.30); GLUCOSE 116 mg/dL (70-99); LACTATE DEHYDROGENASE 189 U/L (81-234); PHOSPHORUS 2.7 mg/dL (2.7-4.5); POTASSIUM 3.7 mmol/L (3.5-5.1); SODIUM SERUM 142 mmol/L (136-145); TOTAL BILIRUBIN 0.2 mg/dL (0.0-1.0); UREA NITROGEN, BLOOD 8 mg/dL (8-21)
[2020-04-05 07:33] LABS: ASPARTATE AMINOTRANSFERASE 39 U/L (10-37)
[2020-04-05 08:00] VITALS: BP_SYST 136
--- NOTE | 2020-04-05 08:00 | NUR ---
nurse notes obtained vs, patient in bed, respirations even, non labored, bed in low and locked position, call light within reach
[2020-04-05] MEDS: PANTOPRAZOLE SODIUM 40 MG/VIAL (PROTONIX) IVP SCH (08:57)
[2020-04-05] MEDS: FUROSEMIDE 40 MG/4 ML VIAL IVP SCH ×2 (08:58→20:38)
[2020-04-05] MEDS: VANCOMYCIN HCL 1 GM/NS PREMIX 250 ML IV SCH ×2 (08:59→20:37)
[2020-04-05] MEDS: BALSAM PERU/CASTOR OIL 60 GM OINT...G. TP SCH (08:59)
--- NOTE | 2020-04-05 09:43 | NUR ---
DC Planning: faxed updated progress notes to [facility] de[facility] # [phone]. Addendum: 04/05/20 at 1051 by Aj Blackman RN >> s/w Tonya, geospatial intelligence analyst/[facility] dept # [phone] that I did not received a call from [place] JEANNE after faxing the clinical report. Per Tonya, Joselyn was assigned yesterday and no assigned for today yet. Tonya requests to continue faxing the update clinical notes that should be fine. Call ref # [id number].
--- NOTE | 2020-04-05 10:00 | NUR ---
Nurse note repositioned patient, provided oral care, no signs of distress or pain, bed in low and locked position, call light within reach
[2020-04-05 12:00] VITALS: BP_SYST 125
--- NOTE | 2020-04-05 12:00 | NUR ---
nurse note repositioned patient, provided Jtube flush as directed. no signs of distress or pain noted, bed in low and locked position, call light within reach
[2020-04-05] MEDS: NACL 0.9% 1,000 ML IV SCH (12:03)
--- NOTE | 2020-04-05 12:15 | NUR ---
nurse note spoke with patients daughter Destini on the phone, provided status of patient and answered all questions, daughter verbalized understanding and had no further questions
--- NOTE | 2020-04-05 14:00 | NUR ---
nurse note repositioned patient, bed in low and locked position, call light within reach, bed alarm on
--- NOTE | 2020-04-05 16:00 | NUR ---
wound care Patient incontinent of bowel, cleansed maeve area, changed linens, provided wound care see MST shift assessment, repositioned patient, no signs of pain or discomfort, bed in low and locked position, call light within reach, bed alarm on
[2020-04-05 16:25] VITALS: BP_SYST 129
[2020-04-05] MEDS: ERTAPENEM SODIUM 1 GM in NS 50 ML IV SCH (17:14)
--- NOTE | 2020-04-05 18:00 | NUR ---
NURSE NOTE REPOSITIONED PATIENT, BED IN LOW AND LOCKED POSITION, CALL LIGHT WITHIN REACH, BED ALARM ON, CALLED DAUGHTER SONAL, VIA FACE TIME AND ASSISTED PATIENT WITH PHONE CALL Addendum: 04/05/20 at 1815 by Leandra Mckeon RN FLUSHED JTUBE WITH 100ML WATER DIRECTED
--- NOTE | 2020-04-05 19:15 | NUR ---
CLOSING NOTE PROVIDED BEDSIDE SBAR TO NIGHT RN, PATIENT IN BED, RESPIRATIONS EVEN NON LABORED, BED IN LOW AND LOCKED POSITION, CALL LIGHT WITHIN REACH, BED ALARM ON
--- NOTE | 2020-04-05 19:30 | NUR ---
Opening Note: Received report from dayshift nurse. Patient is resting in bed without s/s of respiratory distress or discomfort. She is alert x1 to name. Pt has 20g IV upper arm patent and intact. She is on room air with no adventitious breathing patterns. Patient is on fiber source @ 50 mL/hr tolerating well. Hernandez catheter draining to gravity. Wound vac is present and draining on right hip with no leaks noted. Dressings are dry, clean, and intact. Patient is laying in bed at 30 degrees. Bed is at lowest position with alarm on.
[2020-04-05 20:00] VITALS: BP_SYST 150
--- NOTE | 2020-04-05 20:35 | NUR ---
Medication Administration: Patient is resting in bed, vital signs are WNL. She is not exhibiting any s/s of distress or discomfort. Medications were administered at ordered. GJ tube was checked, no residual. Patient is tolerating tube feeding well. Bed is at lowest position with alarm on. Will continue to monitor.
--- NOTE | 2020-04-05 20:48 | NUR ---
Dr. Durham at bedside seen and examined patient. Assessed wound. Stated he was going to order wound vac for tomorrow for left hip and sacral wounds and for Dexter, wound care nurse, to see patient. Informed Dr. Durham about patient having cool extremities on left side. Pulses are present. Right extremities are warm, in comparison. Pulses present. Patient tolerating feeding, with no residual noted. MD stated he will look at chart. No new orders received. Will check chart for any new orders.
--- NOTE | 2020-04-05 23:00 | NUR ---
Rounding: Patient is resting in bed with no s/s of distress or discomfort. She is tolerating breathing on room air. Bed alarm is on and at lowest position. Will continue to monitor.
[2020-04-06] VITALS (12 sets, daily range): BP systolic 77–145
--- NOTE | 2020-04-06 00:10 | NUR ---
Nursing Note: Yodit BROOKS reported pt's blood pressure was low. Patient appeared to be resting in bed and had not s/s of distress. Lasix had been given during med pass. Patient's feeding was stopped and placed on decreased HOB to 20 and elevated legs. Rechecked pt's blood pressure and was 145/74 HR 84 RR 20. Will continue to monitor.
--- NOTE | 2020-04-06 01:07 | NUR ---
Rounding: Patient is resting in bed with no s/s of distress or discomfort. Will continue to monitor patient. Bed is at lowest position with alarm on.
--- NOTE | 2020-04-06 01:15 | NUR ---
Nursing Note: Reposition pt's bed and elevated HOB to 30 degrees and resumed tube feeding. Will continue to monitor pt's blood pressure.
--- NOTE | 2020-04-06 01:20 | NUR ---
Nursing Note: Patient's blood pressure dropped to 77/46 HR 93. GJ tube feeding was stopped and pt's head of bed was lowered to and legs elevated. Reposition and repeated blood pressure. Patient's blood pressure was 128/83 HR 93. Patient is not exhibiting any s/s of distress and has regular breathing pattern on room air. Will continue to monitor patient.
--- NOTE | 2020-04-06 02:14 | NUR ---
Nursing Note: Patient is resting in bed at lowest position. She is not exhibiting any s/s of discomfort or distress. Vital signs are within latonya limits. Will continue to monitor pt's blood pressure.
--- NOTE | 2020-04-06 04:15 | NUR ---
Nursing Note: Patient is resting in bed at lowest position. She is not exhibiting any s/s of discomfort or distress. Vital signs are within normal limits. GJ tube feeding is running and patient tolerating well. Will continue to monitor.
--- NOTE | 2020-04-06 06:19 | NUR ---
Closing Note: Patient is resting in bed without s/s of respiratory distress or discomfort. She is alert x1 to name. Pt has 20g IV upper arm patent and intact. She is on room air with not adventitious breath patterns. Patient is on fiber source @ 50 mL/hr tolerating well. Hernandez catheter draining to gravity. Wound vac is present and draining on right hip with no leaks noted. Bed is at lowest position with alarm on. All needs were met throughout shift. Will endorse care to dayshift nurse.
[2020-04-06 07:09] LABS: BASOPHILS # (AUTO) 0.1 K/uL (0.0-0.2); BASOPHILS % (AUTO) 0.5 % (0.0-2.0); EOSINOPHILS # (AUTO) 0.2 K/uL (0.0-0.4); EOSINOPHILS % (AUTO) 1.7 % (0.0-4.0); HEMATOCRIT 27.8 % (36-48); HEMOGLOBIN 8.9 g/dL (12.0-16.0); LYMPHOCYTES # (AUTO) 1.6 K/uL (1.0-5.5); LYMPHOCYTES % (AUTO) 11.2 % (20.5-51.5); MEAN CORPUSCULAR HEMOGLOBIN 27 pg (27-31); MEAN CORPUSCULAR HGB CONC 32 % (32-36); MEAN CORPUSCULAR VOLUME 86 fL (79.0-98.0); MONOCYTES # (AUTO) 0.8 K/uL (0.0-1.0); MONOCYTES % (AUTO) 5.6 % (1.7-9.3); NEUTROPHILS # (AUTO) 11.6 K/uL (1.8-7.7); PLATELET COUNT (AUTO) 404 K/uL (130-430); RED BLOOD CELL COUNT(AUTO) 3.24 MIL/uL (4.2-6.2); RED CELL DISTRIBUTION WIDTH 19.2 % (9.0-15.0); WHITE BLOOD COUNT (AUTO) 14.4 K/uL (4.8-10.8)
[2020-04-06 07:23] LABS: ANION GAP 5 (5-15); CALCIUM 8.5 mg/dL (8.4-11.0); CHLORIDE 107 mmol/L (98-107); CREATININE 0.64 mg/dL (0.55-1.30); GLUCOSE 126 mg/dL (70-99); PHOSPHORUS 2.4 mg/dL (2.7-4.5); POTASSIUM 3.5 mmol/L (3.5-5.1); SODIUM SERUM 140 mmol/L (136-145); UREA NITROGEN, BLOOD 8 mg/dL (8-21)
--- NOTE | 2020-04-06 07:40 | NUR ---
Opening note Received patient from rn shift mgr nurse, Patient resting in bed, a/o x1 nonverbal, no distress noted, IV site is patent and infusing well, patient is tolerating oxygen on room air, J tube intact clean dry dressing and running feedings as ordered, delarosa catheter intact and draining by gravity, wound vac intact and draining. Patient in stable condition, safety fall aspiration and contact precaution placed, bed locked in lowest position, call light within reach, will continue to monitor patient for any changes.
--- NOTE | 2020-04-06 08:05 | NUR ---
MD Rounds Dr Domínguez making his rounds, aware of patient's condition, new orders received, will follow through with new orders.
[2020-04-06] MEDS: VANCOMYCIN HCL 1 GM/NS PREMIX 250 ML IV SCH ×2 (08:09→21:52)
[2020-04-06] MEDS: PANTOPRAZOLE SODIUM 40 MG/VIAL (PROTONIX) IVP SCH (08:10)
[2020-04-06] MEDS: BALSAM PERU/CASTOR OIL 60 GM OINT...G. TP SCH (08:10)
--- NOTE | 2020-04-06 09:54 | NUR ---
Nutrition F/U Admitting Diagnosis: Sepsis and Acute Cholecystis Medical History Comment: PMH: Dementia, non-verbal, bed bound Pt also found w/ Dysphagia, G-tube dependant, Hepatomegaly, Cardiomegaly, and multiple pressure injuries per MD note. 04/04 S/P debridement sacral decub ulcer 04/05 tolerating Jtube feeding, Fibersource is being provided by family. 04/02: COVID-19 PCR Negative Subjective Information: Nutrition Consult for malnutrition received 04/05 2105. Pt is POD#3 S/P I&D w/ wound vac. Current EN at 50ml/hr provides 1440 kcal, 65gm protein which meets 81% of upper end of estimated calorie needs and 64% of upper end of estimated protein needs. Per Production Lead note: pt w/ Stage IV PI and unstageable PI's. Pt may benefit from Tip for wound healing and Prosource for additional protein daily. RD tried to place phone call to Fred Chung [phone], but phone# does not seem to be active. RD s/w pt's Destini SUAREZ who agreed w/ RD rec for modulars for wound healing. RN reported that there are plans to discharge pt soon, tolerating EN well, no residual this morning and that pt is pending 2 more wound vac placements. RD to follow per nutrition care standards. RD visit has been deferred d/t pt is in Isolation room and lack of PPE. Current Diet Order/Nutrition Support: Jevity 1.2 at 50ml/hr, FWF 100ml Q6H via JT. Fibersource is provided by the family. Pertinent Medications: Protonix IV, vancomycin Pertinent Labs 04/06 WBC 14.4H, Na 140WNL, K 3.5WNL, BUN 8WNL, CRE 0.64WNL, BG 126H Weight (821): 123 pounds/ 55.450955 kilograms Skin Integrity Comment: Sterling scale 9. WCS note reviewed -- Stage 4 PI Sacrococcygeal area and Unstageable Pressure Injuries on bilateral hip; Bilateral generalized pitting edema noted per EMR Current % PO N/A, NPO Estimated Energy Expenditure (kcals/day) 6475-7094 kcal (30-35 kcal/kg adj. IBW for sepsis, pressure ulcers) Estimated Protein Required (g/day) 77-102 g pro/day (1.5-2.0 g pro/kg adj. IBW for sepsis, pressure ulcers) Estimated Fluid Required (l/day) 8616-8668 ml/day (1ml/kcal/day for normal maintenance) Problem/Etiology/Signs/Symptoms Inadequate protein energy intake related to increased nutritional demands as evidenced by sepsis. (*modified 04/06) Expected Outcomes/Goals Monitor EN support and EN tolerance w/ goal of pt meeting at least 75% of estimated needs, labs trending WNL, normal GI function, skin integrity, and weight maintenance. Dietitian Recommendations *Recommend add Tip BID, Prosource once daily for wound healing. *Continue w/ Fibersource at 50ml/hr via JT. Provides: 1660 kcal, 87gm protein and 1398ml fluids daily Meets: 93% of upper end of estimated calorie needs and 85% of upper end of estimated protein needs. Follow Up High Risk: F/U in 2-3days
--- NOTE | 2020-04-06 10:10 | NUR ---
Dietitian Recommendations *Recommend add Tip BID, Prosource once daily for wound healing. *Continue w/ Fibersource at 50ml/hr via JT. Provides: 1660 kcal, 87gm protein and 1398ml fluids daily Meets: 93% of upper end of estimated calorie needs and 85% of upper end of estimated protein needs. Please see Nutrition F/U note for details. [facility], RD
--- NOTE | 2020-04-06 10:21 | NUR ---
RN Rounds Patient resting in bed, patient was repositioned in bed, cleaned and changed, oral care done, patient tolerated well, patient tolerated oxygen in room air well, patient in stable condition, safety measures maintained, call light within reach, fall, contact, and aspiration precautions placed. Will continue to monitor patient.
--- NOTE | 2020-04-06 11:00 | NUR ---
MD ROUNDS: DR. SANFORD MAKING HIS ROUNDS. AWARE OF PATIENTS CONDITION. NO NEW ORDERS GIVEN.
[2020-04-06] MEDS: NACL 0.9% 1,000 ML IV SCH (11:50)
--- NOTE | 2020-04-06 12:10 | NUR ---
WOUND RE-EVALUATION: Late note for 04/06/2020 at 1210 secondary to patient care. Patient received in a Shaista Bed with an Isoflex MATT mattress, awake, non-verbal, non-responsive to verbal commands. Patient is unable to turn in bed independently. Sterling Score is a 9. Past Medical History: Dementia, non-verbal, bedbound, pressure injuries to Sacral and bilateral hip areas for months. Recent Labs: WBC 14.4, RBC 3.24, hemoglobin 8.9, hematocrit 27.8, sodium 140, albumin 1.4, glucose 126. Microbiology: Blood culture results x2 in progress. Urine culture results positive for E. coli (ESBL). Sacral wound culture and Bilateral hip wound culture results positive for Staphylococcus aureus and Enterococcus faecalis. Intrinsic factors that delay wound healing: Severe Hypoalbuminemia. Extrinsic factors that delay wound healing: Decreased Immobility. Wound Assessment: 1. Sacrococcygeal area: Stage IV pressure ulcer, present on admission. Wound bed has 30% dark red tissue, 70% yellow slough. Mild odor, scant yellow purulent drainage. Sinus tract around 2 o'clock where bone is palpable. Undermining present from 82 o'clock (5.4 cm at 8 o'clock; 2.0 cm at 9 o'clock; 2.5 cm at 2 o'clock). Wound measures 9.0 cm x 10.0 cm x 3.8 cm. 2. Left Lateral Hip near Greater Trochanter: Unstageable pressure ulcer, present on admission. Wound bed has 85% yellow slough, 5% black slough, 10% dark red tissue. Mild odor, no drainage. Undermining present (100%) - (0.4 cm at 12 o'clock; 0.6 cm at 3 o'clock; 0.8 cm at 6 o'clock; 0.3 cm at 9 o'clock). Wound measures 6.5 cm x 7.5 cm x 1.4 cm. Recommend: Cleanse wounds with normal saline. Apply SurePrep to maeve-wounds and surrounding tissue. Apply Venelex ointment to wound beds. Cut black granufoam dressing to size and place onto wound beds. Cover with Vac drape. Make a bridge from Left Lateral Hip wound to Sacral wound: Apply sure prep to non-bony portion of skin in between both wounds, apply Vac drape to area. Cut a hole into each dressing and insert into hole in each black Granufoam dressing and run across VAC drape. Cover bridged area in between sacral and left lateral hip wounds with more VAC drape. Cut a hole into middle section of Vac drape and attach VAC suction attachment. Run VAC at 125 mmHg continuous, medium ramp. Perform wound care q Monday/Monday/Monday, and as needed for dressing soiling or dislodgement. 3. Right Lateral Hip near Greater Trochanter: Unstageable pressure ulcer, present on admission. Wound bed has 40% yellow slough, 60% dark red tissue. Mild odor, no drainage. Undermining present from 114 o'clock (0.3 cm at 11 o'clock; 0.6 cm at 12 o'clock; 0.1 cm at 4 o'clock). Wound measures 5.0 cm x 7.0 cm x 1.4 cm. Recommend: Cleanse wound with normal saline. Apply SurePrep to maeve-wound and surrounding tissue. Apply Venelex ointment to wound bed. Cut black granufoam dressing to size and place onto wound bed. Cover with Vac Drape. Cut a hole into Vac dressing and attach VAC suction attachment. Run VAC at 125 mmHg continuous, medium ramp. Perform wound care q Monday/Monday/Monday, and as needed for dressing soiling or dislodgement. Also recommend continue: Reposition patient side to side only every 2 hours with pillow support and off-load pressure areas with pillows for pressure re-distribution. Offload, elevate and float bilateral heels with one pillow lengthwise under each extremity at all times. Perform skin care and monitor skin integrity Q shift. Use moisture barrier cream on buttocks and other moisture susceptible areas QID and as needed for soiling. Maintain patient on a low air-loss mattress.
--- NOTE | 2020-04-06 12:10 | NUR ---
RN ROUNDS/ WOUND CARE: PATIENT IS AWAKE LAYING DOWN IN BED. PATIENT IS TOLERATING OXYGEN ON ROOM AIR WITH NO SIGNS OF DISTRESS OR SHORTNESS OF BREATH NOTED. IV SITE IS PATENT WITH NO SIGNS OF INFILTRATION NOTED. J-TUBE INTACT. MARQUES DRAINING BY GRAVITY. WOUND CARE PERFORMED. WOUND VAC CHANGED. PATIENT TOLERATED IT WELL. PATIENT CLEANED, CHANGED AND REPOSITIONED. PATIENT IN STABLE CONDITION. SAFETY, FALL, ASPIRATION AND CONTACT PRECAUTIONS ARE IN PLACE. BED LOCKED IN LOWEST POSITION WITH CALL LIGHT IN REACH. WILL CONTINUE TO MONITOR PATIENT FOR ANY CHANGES.
--- NOTE | 2020-04-06 13:50 | NUR ---
MD CALLED: SPOKE WITH DR. SOSA. INFORMED MD OF WOUND VAC PLACEMENT. MD AWARE OF PATIENT'S CONDITION. NO NEW ORDERS GIVEN.
--- NOTE | 2020-04-06 14:01 | NUR ---
RN ROUNDS: PATIENT IS AWAKE LAYING DOWN WATCHING TELEVISION. PATIENT IS TOLERATING OXYGEN ON ROOM AIR WITH NO SIGNS OF DISTRESS OR SHORTNESS OF BREATH NOTED. IV SITE IS PATENT. WOUND VAC INTACT. MARQUES INTACT AND DRAINING BY GRAVITY. G/J TUBE INTACT AND RUNNING FEEDING ORDERED. PATIENT IN STABLE CONDITION. SAFETY, FALL, ASPIRATION AND CONTACT PRECAUTIONS ARE IN PLACE. BED LOCKED IN LOWEST POSITION WITH CALL LIGHT IN REACH. WILL CONTINUE TO MONITOR PATIENT FOR ANY CHANGES.
--- NOTE | 2020-04-06 14:09 | NUR ---
DC PLANNING Order for dc planning to SNF for IV abx & Wound care(wound vac). Called & spoke discussed dc plan with dtr Destini Randy, ph [phone], [facility] did discuss with Dr Domínguez this morning. [facility] has discussed with family & are in agreement with short term SNF. Would like pt to go to SNF in [facility], & does not want a Covid SNF. If transfer to contracted hospital needed agreeable with preference with [facility] Pt normally goes to [facility] but has not been happy with care of pt's wound there so prefers [facility]. Called & spoke with Prasanna Bedoya learning analyst. Pt was not assigned CM since pt is auth'd to stay here until tomorrow 04/07. Informed that have dc planning order for SNF. Case was assigned to Rainelle JEANNE Snider & Skip Pitman Margaret. Received call from Agatha & informed of family request. Will look for contracted SNF in [facility], will try to find Covid free SNF for anticipated discharge tomorrow.
--- NOTE | 2020-04-06 16:15 | NUR ---
RN Rounds Patient asleep at this time, respirations even and unlabored, safety measures maintained, call light within patient reach, bed at lowest position, fall and aspiration precautions in place.
[2020-04-06] MEDS: ERTAPENEM SODIUM 1 GM in NS 50 ML IV SCH (16:58)
--- NOTE | 2020-04-06 18:00 | NUR ---
FACE TIME: FACETIMED PATIENT'S DAUGHTER RADHA (SOLOMON). ANSWERED ALL QUESTIONS TO THE BEST OF MY ABILITY. PATIENT IN STABLE CONDITION. WILL CONTINUE TO MONITOR PATIENT FOR ANY CHANGES.
--- NOTE | 2020-04-06 18:52 | NUR ---
Closing note Patient resting in bed, a/o x1 nonverbal, no distress noted, IV site is patent and infusing well, patient is tolerating oxygen on room air, J tube intact clean dry dressing and running feedings as ordered, Hernandez catheter intact and draining by gravity, wound vac intact and draining. Patient in stable condition, safety, fall, aspiration and contact precaution remained in place through out shift, bed locked in lowest position, call light within reach, will endorse patient care to oncoming personal injury attorney nurse.
--- NOTE | 2020-04-06 19:15 | NUR ---
MD ROUNDS: DR. SOSA MAKING HIS ROUNDS. AWARE OF PATIENT'S CONDITION. NO NEW ORDERS GIVEN AT THIS TIME.
--- NOTE | 2020-04-06 19:20 | NUR ---
ENDORSED CARE: ENDORSED PATIENT CARE TO CRISTIAN KRAUSE. SBAR REPORT GIVEN WITH TIME FOR QUESTIONS.
--- NOTE | 2020-04-06 19:25 | NUR ---
OPENING NOTE RECEIVED CARE OF PT AND SBAR REPORT FROM DAY SHIFT RN. PT IS AWAKE AND ALERT, NONVERBAL, NO S/S OF ACUTE DISTRESS NOTED. IV SITE TO RIGHT UPPER ARM IS PATENT WITH NO S/S OF INFILTRATION NOTED AT IV SITE, IVF INFUSING AT ORDERED RATE. PT BREATHING IS EVEN AND UNLABORED, NO SOB NOTED ON ROOM AIR. TUBE FEEDING IS RUNNING AT ORDERED RATE. MARQUES CATHETER IS INTACT AND DRAINING TO GRAVITY. WOUND VAC IS INTACT AND DRAINING. SAFETY, ASPIRATION, AND CONTACT PRECAUTIONS ARE IN PLACE. BED IS LOCKED AND ALARMED AT THE LOWEST LEVEL. CALL LIGHT IS WITH PT. WILL CONTINUE TO MONITOR.
--- NOTE | 2020-04-06 21:52 | NUR ---
MEDICATION PASS SCHEDULED VANCOMYCIN HUNG AND SET TO INFUSE AT ORDERED RATE. PT IS TOLERATING WELL, NO S/S OF ADVERSE REACTION NOTED. VSS. GJ TUBE IS PATENT, NO RESIDUAL NOTED. FREE WATER FLUSH GIVEN. ASPIRATION PRECAUTIONS NOTED. SAFETY MAINTAINED. WILL MONITOR.
[2020-04-07] VITALS: BP_SYST 144
[2020-04-07] MEDS: NACL 0.9% 1,000 ML IV SCH (00:31)
--- NOTE | 2020-04-07 00:31 | NUR ---
TUBE FEEDING CHANGED/NEW BAG OF NS HUNG TUBE FEEDING CHANGED TO JEVITY 1.2 ORDERED, RATE SET TO 55 CC/HR. NEW BAG OF NS HUNG. SAFETY, ASPIRATION, AND CONTACT PRECAUTIONS ARE IN PLACE. WILL MONITOR.
--- NOTE | 2020-04-07 02:15 | NUR ---
RN ROUNDS: PATIENT IS RESTING IN BED WITH EYES CLOSED, APPEARS TO BE SLEEPING. PATIENT IS TOLERATING OXYGEN ON ROOM AIR WITH NO SIGNS OF DISTRESS OR SHORTNESS OF BREATH NOTED. IV SITE IS PATENT. WOUND VAC INTACT AND DRAINING TO SUCTION. MARQUES INTACT AND DRAINING BY GRAVITY. G/J TUBE INTACT AND RUNNING FEEDING ORDERED. PATIENT IN STABLE CONDITION. SAFETY, FALL, ASPIRATION AND CONTACT PRECAUTIONS ARE IN PLACE. BED LOCKED IN LOWEST POSITION WITH CALL LIGHT IN REACH. WILL CONTINUE TO MONITOR PATIENT FOR ANY CHANGES.
[2020-04-07 06:40] LABS: BASOPHILS # (AUTO) 0.1 K/uL (0.0-0.2); BASOPHILS % (AUTO) 0.8 % (0.0-2.0); EOSINOPHILS # (AUTO) 0.3 K/uL (0.0-0.4); EOSINOPHILS % (AUTO) 2.4 % (0.0-4.0); HEMATOCRIT 25.9 % (36-48); HEMOGLOBIN 8.3 g/dL (12.0-16.0); LYMPHOCYTES # (AUTO) 2.2 K/uL (1.0-5.5); LYMPHOCYTES % (AUTO) 16.8 % (20.5-51.5); MEAN CORPUSCULAR HEMOGLOBIN 28 pg (27-31); MEAN CORPUSCULAR HGB CONC 32 % (32-36); MEAN CORPUSCULAR VOLUME 87 fL (79.0-98.0); MONOCYTES # (AUTO) 0.9 K/uL (0.0-1.0); MONOCYTES % (AUTO) 7.3 % (1.7-9.3); NEUTROPHILS # (AUTO) 9.5 K/uL (1.8-7.7); NEUTROPHILS % (AUTO) 72.7 % (40.0-70.0); PLATELET COUNT (AUTO) 379 K/uL (130-430); RED BLOOD CELL COUNT(AUTO) 2.98 MIL/uL (4.2-6.2); RED CELL DISTRIBUTION WIDTH 19.3 % (9.0-15.0)
[2020-04-07 07:16] LABS: ANION GAP 6 (5-15); CALCIUM 8.5 mg/dL (8.4-11.0); CHLORIDE 110 mmol/L (98-107); CREATININE 0.67 mg/dL (0.55-1.30); GLUCOSE 120 mg/dL (70-99); POTASSIUM 3.7 mmol/L (3.5-5.1); SODIUM SERUM 143 mmol/L (136-145); UREA NITROGEN, BLOOD 10 mg/dL (8-21)
--- NOTE | 2020-04-07 07:30 | NUR ---
OPENING NOTES: RECEIVED PATIENT FROM STATION ENGINEER MAIN LINE NURSE. PATIENT IS AWAKE LAYING DOWN IN BED. PATIENT IS TOLERATING OXYGEN ON ROOM AIR WITH NO SIGNS OF DISTRESS OR SHORTNESS OF BREATH NOTED. IV SITE IS PATENT WITH NO SIGNS OF INFILTRATION NOTED. MARQUES CATHETER INTACT AND DRAINING BY GRAVITY. G/J TUBE INTACT AND RUNNING FEEDING ORDERED. WOUND VAC IN PLACE. PATIENT IN STABLE CONDITION. SAFETY, FALL, ASPIRATION AND CONTACT PRECAUTIONS ARE IN PLACE. BED LOCKED IN LOWEST POSITION WITH CALL LIGHT IN REACH. WILL CONTINUE TO MONITOR PATIENT FOR ANY CHANGES.
--- NOTE | 2020-04-07 07:30 | NUR ---
CLOSING NOTE PT IS AWAKE AND ALERT, NONVERBAL, NO S/S OF ACUTE DISTRESS NOTED. IV SITE TO RIGHT UPPER ARM IS PATENT WITH NO S/S OF INFILTRATION NOTED AT IV SITE, IVF INFUSING AT ORDERED RATE. PT BREATHING IS EVEN AND UNLABORED, NO SOB NOTED ON ROOM AIR. TUBE FEEDING IS RUNNING AT ORDERED RATE. MARQUES CATHETER IS INTACT AND DRAINING TO GRAVITY. WOUND VAC IS INTACT AND DRAINING. SAFETY, ASPIRATION, AND CONTACT PRECAUTIONS ARE IN PLACE. BED IS LOCKED AND ALARMED AT THE LOWEST LEVEL. CALL LIGHT IS WITH PT. CARE ENDORSED TO DAY SHIFT RN.
[2020-04-07 08:00] VITALS: BP_SYST 143
[2020-04-07] MEDS: PANTOPRAZOLE SODIUM 40 MG/VIAL (PROTONIX) IVP SCH (08:50)
[2020-04-07] MEDS: VANCOMYCIN HCL 1 GM/NS PREMIX 250 ML IV SCH ×2 (08:51→20:04)
[2020-04-07] MEDS: BALSAM PERU/CASTOR OIL 60 GM OINT...G. TP SCH (08:51)
--- NOTE | 2020-04-07 09:40 | NUR ---
Social Service Note: DISTILLER received order from physician; DISTILLER spoke with physician at nurses station. Physician has concerns related to pt's home environment and the care pt was receiving at home. ART has completed the online adult protective services online report; report number: [id number].
--- NOTE | 2020-04-07 10:41 | NUR ---
RN ROUNDS: PATIENT IS AWAKE LAYING DOWN IN BED. PATIENT IS TOLERATING OXYGEN ON ROOM AIR WITH NO SIGNS OF DISTRESS OR SHORTNESS OF BREATH NOTED. IV SITE IS PATENT WITH NO SIGNS OF INFILTRATION NOTED. PATIENT IN STABLE CONDITION. WILL CONTINUE TO MONITOR PATIENT FOR ANY CHANGES.
--- NOTE | 2020-04-07 11:50 | NUR ---
DC PLANNING Order to dc to SNF. This am faxed order to [facility]. Have not received call back, called & spoke with [facility] quantitative analyst Saeid, ph [phone], [facility] is [facility]. Spoke with [facility], ph [phone], is looking for SNF but needs [facility] for to be filled out & faxed back. States she will fax over form.
--- NOTE | 2020-04-07 12:29 | NUR ---
DC PLANNING FAXED SNF request form along with pt info requested to [facility] @ [facility], direct ph [phone] fax [phone].
[2020-04-07 12:39] VITALS: BP_SYST 145
--- NOTE | 2020-04-07 12:54 | NUR ---
RN ROUNDS: PATIENT IS ASLEEP LAYING DOWN IN BED. PATIENT IS TOLERATING OXYGEN ON ROOM AIR WITH NO SIGNS OF DISTRESS OR SHORTNESS OF BREATH NOTED. IV SITE IS PATENT WITH NO SIGNS OF INFILTRATION NOTED. PATIENT IN STABLE CONDITION. WILL CONTINUE TO MONITOR PATIENT FOR ANY CHANGES.
[2020-04-07 16:12] VITALS: BP_SYST 140
[2020-04-07] MEDS: ERTAPENEM SODIUM 1 GM in NS 50 ML IV SCH (16:31)
--- NOTE | 2020-04-07 16:39 | NUR ---
RN ROUNDS: PATIENT IS AWAKE WATCHING TELEVISION LAYING DOWN IN BED. PATIENT IS TOLERATING OXYGEN ON ROOM AIR WITH NO SIGNS OF DISTRESS OR SHORTNESS OF BREATH NOTED. IV SITE IS PATENT WITH NO SIGNS OF INFILTRATION NOTED. PATIENT IN STABLE CONDITION. WILL CONTINUE TO MONITOR PATIENT FOR ANY CHANGES.
--- NOTE | 2020-04-07 18:30 | NUR ---
FAMILY CALLED: SPOKE WITH DAUGHTER SONAL WHO IS ANGRY THAT PATIENT HAS NOT BEEN RECEIVING ANY OF HER HOME MEDICATIONS. INFORMED HER THAT THERE WAS NO MEDICATION RECONCILE DONE DUE TO ER NOT HAVING THE LIST OF MEDICATIONS SHE WAS TAKING. SONAL STATED SHE WANTS THE PHYSICIANS TO CALL HER AND THAT SHE WILL BE BRINGING IN HER MOTHERS HOME MEDICATIONS SO THE DOCTORS CAN LOOK THEM OVER. INFORMED SONAL THAT I PUT A NOTE ON HER MOTHER'S CHART INFORMING THE PHYSICIANS TO GIVE HER A CALL REGARDING HER MEDICATIONS. WILL AWAIT THE MEDICATIONS ARRIVAL SO THEY CAN BE INPUTTED.
--- NOTE | 2020-04-07 18:45 | NUR ---
CLOSING NOTES: PATIENT IS AWAKE LAYING DOWN IN BED. PATIENT IS TOLERATING OXYGEN ON ROOM AIR WITH NO SIGNS OF DISTRESS OR SHORTNESS OF BREATH NOTED. IV SITE IS PATENT WITH NO SIGNS OF INFILTRATION NOTED. MARQUES CATHETER INTACT AND DRAINING BY GRAVITY. G/J TUBE INTACT AND RUNNING FEEDING ORDERED. WOUND VAC IN PLACE AND DRAINING. PATIENT IN STABLE CONDITION. SAFETY, FALL, ASPIRATION AND CONTACT PRECAUTIONS REMAINED IN PLACE THROUGHOUT THE SHIFT. BED LOCKED IN LOWEST POSITION WITH CALL LIGHT IN REACH. WILL ENDORSE PATIENT CARE TO ONCOMING YOUTH TEACHER NURSE.
--- NOTE | 2020-04-07 18:55 | NUR ---
HOME MEDICATIONS: FAMILY MEMBER BROUGHT IN HOME MEDICATIONS TO INSERT INTO MED RECONCILE. WILL ENDORSE TO COMPENSATION/BENEFITS SPECIALIST NURSE NELIDA.
--- NOTE | 2020-04-07 19:15 | NUR ---
OPENING NOTE RECEIVED CARE OF PATIENT AND SBAR REPORT FROM DAY SHIFT RN. PATIENT IS AWAKE LAYING DOWN IN BED. PATIENT IS TOLERATING OXYGEN ON ROOM AIR WITH NO SIGNS OF DISTRESS OR SHORTNESS OF BREATH NOTED. IV SITE IS PATENT WITH NO SIGNS OF INFILTRATION NOTED. MARQUES CATHETER INTACT AND DRAINING BY GRAVITY. G/J TUBE INTACT AND RUNNING FEEDING ORDERED. WOUND VAC IN PLACE AND DRAINING. PATIENT IN STABLE CONDITION. SAFETY, FALL, ASPIRATION AND CONTACT PRECAUTIONS REMAINED IN PLACE THROUGHOUT THE SHIFT. BED LOCKED IN LOWEST POSITION WITH CALL LIGHT IN REACH. WILL CONTINUE TO MONITOR.
--- NOTE | 2020-04-07 19:20 | NUR ---
PHYSICIAN ROUNDS DR. SOSA AT BEDSIDE. PT SEEN AND EXAMINED.
[2020-04-07] MEDS ORDERED: IMO2 PO (19:33)
[2020-04-07] MEDS ORDERED: MULT-1117 PO (19:33)
[2020-04-07] MEDS ORDERED: CETI1TAB2 PO (19:33)
[2020-04-07] MEDS ORDERED: FURO-150 PO (19:33)
[2020-04-07] MEDS ORDERED: ASCO500C18 PO (19:33)
[2020-04-07] MEDS ORDERED: LACT1CAP58 PO (19:33)
[2020-04-07] MEDS ORDERED: CARV3.1246 PO (19:33)
[2020-04-07] MEDS ORDERED: B12/1TAB PO (19:33)
[2020-04-07] MEDS ORDERED: APIX5TAB4 GT (19:33)
[2020-04-07] MEDS ORDERED: AMI200 PO (19:33)
[2020-04-07] MEDS ORDERED: SCOP1PAT21 TD (19:33)
[2020-04-07] MEDS ORDERED: VIT1TABL94 PO (19:33)
[2020-04-07] MEDS ORDERED: LIP40 PO (19:33)
[2020-04-07] MEDS ORDERED: VIT D3 PO (19:33)
[2020-04-07] MEDS ORDERED: LISI-209 GT (19:33)
[2020-04-07] MEDS ORDERED: OMEP20CA15 GT (19:33)
--- NOTE | 2020-04-07 19:33 | NUR ---
MEDICATION RECONCILIATION DONE. MEDICATIONS ENTERED FROM THE HOME MED'S THAT WERE BROUGHT BY PATIENT'S FAMILY.
[2020-04-07 20:00] VITALS: BP_SYST 138
--- NOTE | 2020-04-07 20:07 | NUR ---
Spoke to family: Spoke to daughter over facetime. Updated her on patient care and status. Addendum: 04/09/20 at 0510 by Cristiane Lehman RN Correction: Date: 04/08/20
--- NOTE | 2020-04-07 21:10 | NUR ---
TUBE FEEDING CHANGED NEW BAG OF JEVITY 1.2 HUNG, RATE SET TO 55 CC/HR. PT TOLERATING WELL WITH 0 RESIDUAL NOTED. SAFETY, ASPIRATION, AND CONTACT PRECAUTIONS ARE IN PLACE. WILL MONITOR.
--- NOTE | 2020-04-08 01:35 | NUR ---
RN ROUNDS: PATIENT IS RESTING IN BED WITH EYES CLOSED, APPEARS TO BE SLEEPING. PATIENT IS TOLERATING OXYGEN ON ROOM AIR WITH NO SIGNS OF DISTRESS OR SHORTNESS OF BREATH NOTED. IV SITE IS PATENT. WOUND VAC INTACT AND DRAINING TO SUCTION. MARQEUS INTACT AND DRAINING BY GRAVITY. G/J TUBE INTACT AND RUNNING FEEDING ORDERED. PATIENT IN STABLE CONDITION. SAFETY, FALL, ASPIRATION AND CONTACT PRECAUTIONS ARE IN PLACE. BED LOCKED IN LOWEST POSITION WITH CALL LIGHT IN REACH. WILL CONTINUE TO MONITOR PATIENT FOR ANY CHANGES.
[2020-04-08 01:51] VITALS: BP_SYST 127
[2020-04-08] MEDS: NACL 0.9% 1,000 ML IV SCH (02:39)
[2020-04-08 06:43] LABS: BASOPHILS # (AUTO) 0.1 K/uL (0.0-0.2); BASOPHILS % (AUTO) 0.8 % (0.0-2.0); EOSINOPHILS # (AUTO) 0.3 K/uL (0.0-0.4); EOSINOPHILS % (AUTO) 2.6 % (0.0-4.0); HEMATOCRIT 24.1 % (36-48); HEMOGLOBIN 7.6 g/dL (12.0-16.0); LYMPHOCYTES # (AUTO) 1.8 K/uL (1.0-5.5); LYMPHOCYTES % (AUTO) 14.4 % (20.5-51.5); MEAN CORPUSCULAR HEMOGLOBIN 28 pg (27-31); MEAN CORPUSCULAR HGB CONC 32 % (32-36); MEAN CORPUSCULAR VOLUME 88 fL (79.0-98.0); MONOCYTES # (AUTO) 0.9 K/uL (0.0-1.0); MONOCYTES % (AUTO) 7.2 % (1.7-9.3); NEUTROPHILS # (AUTO) 9.3 K/uL (1.8-7.7); PLATELET COUNT (AUTO) 349 K/uL (130-430); RED BLOOD CELL COUNT(AUTO) 2.75 MIL/uL (4.2-6.2); RED CELL DISTRIBUTION WIDTH 18.9 % (9.0-15.0); WHITE BLOOD COUNT (AUTO) 12.4 K/uL (4.8-10.8)
[2020-04-08 06:53] LABS: ANION GAP 5 (5-15); CALCIUM 8.2 mg/dL (8.4-11.0); CHLORIDE 110 mmol/L (98-107); CREATININE 0.64 mg/dL (0.55-1.30); GLUCOSE 110 mg/dL (70-99); PHOSPHORUS 2.9 mg/dL (2.7-4.5); POTASSIUM 4.1 mmol/L (3.5-5.1); SODIUM SERUM 142 mmol/L (136-145); UREA NITROGEN, BLOOD 18 mg/dL (8-21)
--- NOTE | 2020-04-08 07:25 | NUR ---
OPENING NOTE Patient resting in the bed. No acute distress. Skin warm and dry to touch. IV intact to NOEMY, no redness, no swelling, patent. On NS at 20 ml/hr, infusing well. J-tube intact, patent. On Jevity 1.2 at 55ml/hr. F/C intact, drain gravity. Wound on sacrococcygeal, left and right hip intact to wound vac with drainage. On contact isolation. Safety measure maintained. Call light within reached. Bed locked in low position, side rails up, bed alarm on. Will continue to monitor.
--- NOTE | 2020-04-08 07:55 | NUR ---
CLOSING NOTE PATIENT IS AWAKE LAYING DOWN IN BED. PATIENT IS TOLERATING OXYGEN ON ROOM AIR WITH NO SIGNS OF DISTRESS OR SHORTNESS OF BREATH NOTED. IV SITE IS PATENT WITH NO SIGNS OF INFILTRATION NOTED. MARQUES CATHETER INTACT AND DRAINING BY GRAVITY. G/J TUBE INTACT AND RUNNING FEEDING ORDERED. WOUND VAC IN PLACE AND DRAINING. PATIENT IN STABLE CONDITION. SAFETY, FALL, ASPIRATION AND CONTACT PRECAUTIONS REMAINED IN PLACE THROUGHOUT THE SHIFT. BED LOCKED IN LOWEST POSITION WITH CALL LIGHT IN REACH. WILL ENDORSE PATIENT CARE TO ONCOMING DAY SHIFT NURSE.
[2020-04-08 08:00] VITALS: BP_SYST 138
[2020-04-08] MEDS: VANCOMYCIN HCL 1 GM/NS PREMIX 250 ML IV SCH ×3 (08:00→20:07)
--- NOTE | 2020-04-08 08:38 | NUR ---
SEEN AND EXAMINED BY DR. QUIROZ [facility] WITH ORDER RECEIVED.
[2020-04-08] MEDS: PANTOPRAZOLE SODIUM 40 MG/VIAL (PROTONIX) IVP SCH ×2 (08:51→09:00)
[2020-04-08] MEDS: BALSAM PERU/CASTOR OIL 60 GM OINT...G. TP SCH (08:52)
--- NOTE | 2020-04-08 09:40 | NUR ---
IV INFILTRATED Noted patient's IV site infiltrated. Unable to insert a new IV with 2 RN attempted. Will call MD for PICC line placement order.
--- NOTE | 2020-04-08 11:42 | NUR ---
TELEPHONE CONSENT OBTAINED FROM BRAD LESLIEON (DAUGHTER) FOR PICC LINE PLACEMENT.
[2020-04-08 12:47] VITALS: BP_SYST 142
--- NOTE | 2020-04-08 14:15 | NUR ---
PICC LINE INSERTED BY PICC NURSE PICC line placement done to MANDIE with 2 lumen. Patient tolerated procedure well. Will order x-ray to confirm placement. Continue to monitor.
--- NOTE | 2020-04-08 14:18 | NUR ---
DC Planning: f/u snf placement with Fatoumata @ [facility], direct ph [phone], stated she does not have pt today but will contact the assigned CM to call me back today. Addendum: 04/08/20 at 1640 by Aj Blackman RN Called Fatoumata again, informed her that the assigned CM has not been calling me yet. Per Fatoumata, if Jesica, the assigned cm has not called back , it may possible mean that there is no accepting SNF for the pt yet. The pt is approved for the inpatient stay today. CM may f/u with her again tomorrow. I send sms to pt kristan/Destini to call back [phone] -- CRISTIAN MACIEL made aware. Addendum: 04/08/20 at 1656 by Aj Blackman RN I received call back from Destini and updated her about the snf arrangement by Mims with above information. She agreed with POC. I also notified dr. Domínguez that Destini wants the clinical update and to check pt home med. She thinks the pt has not been taking med for cholesterol. Stated she sent the home med list in with EMT on day pt came to the hospital. She will be asking the md to order pt to resume home med as well. -- CRISTIAN Maciel made aware. Addendum: 04/09/20 at 1332 by Aj Blackman RN s/w with dr. Domínguez this am 04/10, stated he updated kristan Georges and took care of the home med per dtr 's request.
--- NOTE | 2020-04-08 16:20 | NUR ---
ROUND Patient resting in the bed. No acute distress. HOB elevated. F/C intact, drain gravity. Isolation maintained. Call light within reached. Bed locked in low position, side rails up, bed alarm on. Continue to monitor.
[2020-04-08 16:26] VITALS: BP_SYST 136
[2020-04-08] MEDS: ERTAPENEM SODIUM 1 GM in NS 50 ML IV SCH (18:18)
--- NOTE | 2020-04-08 18:40 | NUR ---
CALLED DR. QUIROZ [facility] Informed to Dr. Quiroz, the patient no going to discharge today. The daughter concerned the medication not received days. The med reconcile done last night. Dr. Quiroz stated that he will entry the order.
--- NOTE | 2020-04-08 18:50 | NUR ---
FAMILY CALLED Updated the condition of the patient to the daughter Destini, make aware not going to discharge tonight. Dr. Domínguez will read the home med and enter the order.
--- NOTE | 2020-04-08 19:20 | NUR ---
CLOSING NOTE Patient resting in the bed. No acute distress. Skin warm and dry to touch. PICC line intact to MANDIE, no redness, no swelling, patent. Covered with clean and dry transparent dressing. On NS at 20 ml/hr, infusing well. J-tube intact, patent. On Jevity 1.2 at 55ml/hr. F/C intact, drain gravity. Wound on sacrococcygeal, left and right hip intact to wound vac with drainage. On contact isolation. All needs met. Safety measure maintained. Call light within reached. Bed locked in low position, side rails up, bed alarm on. Endorse to night nurse, wound vac dressing not changed. The night nurse will do it.
--- NOTE | 2020-04-08 19:30 | NUR ---
Initial Note: Receive report from clint RN. Patient is in bed, facetiming with family. No acute distress. Tolerating room air, respirations are even and nonlabored. PICC line is received IV fluids as ordered. PICC line dressing is c/d/i. GJ tube dressing is c/d/i. Tubefeeding noted. Hernandez is draining cloudy, yellow urine to gravity. Wound vac in place with light brown drainage. Bed is locked at lowest position. Side rails up x3. Bed alarm is on. Call light is with patient. Contact, safety, and fall precautions in place. Will continue plan of care.
[2020-04-08 20:00] VITALS: BP_SYST 139
--- NOTE | 2020-04-08 20:07 | NUR ---
Spoke to family: Spoke to daughter over facetime. Updated her on patient care and status.
[2020-04-08] MEDS: CARVEDILOL 3.125 MG TABLET (COREG) PO SCH (21:19)
[2020-04-08] MEDS: ATORVASTATIN 20 MG TABLET PO SCH (21:19)
[2020-04-08] MEDS: APIXABAN 2.5 MG TABLET GT SCH (21:20)
--- NOTE | 2020-04-08 23:00 | NUR ---
Rounds: Patient is in bed, resting. No s/s of acute distress. Breathing is even, nonlabored on room air. Call light is with patient. Contact, safety, and fall precautions in place. Will continue to monitor.
[2020-04-09 00:06] VITALS: BP_SYST 144
--- NOTE | 2020-04-09 02:15 | NUR ---
Rounds: Patient is in bed, resting. No s/s of acute distress. Respirations are even, nonlabored on room air. Call light is with patient. Contact, safety, and fall precautions in place. Will continue monitoring.
[2020-04-09] MEDS: MORPHINE 2 MG/ML INJ. SYRINGE IVP PRN (03:08)
--- NOTE | 2020-04-09 03:40 | NUR ---
Wound care: Wound care performed per MD order and wound care nurse recommendations. Patient tolerated well. Will continue to monitor.
--- NOTE | 2020-04-09 05:40 | NUR ---
Rounds: Patient is in bed, sleeping. No acute distress. Breathing is even, nonlabored on room air. Call light is with patient. Safety and fall precautions in place. Will continue monitoring.
--- NOTE | 2020-04-09 07:04 | NUR ---
Closing note: Patient is in bed, resting. No acute distress. Even, nonlabored breathing on room air. PICC line is received IV fluids as ordered. PICC line dressing is c/d/i. GJ tube receiving tubefeeding as ordered. GJ tube dressing is c/d/i. Hernandez is draining cloudy, yellow urine to gravity. Wound vac in place with light brown drainage. Bed is locked at lowest position. Side rails up x3. Bed alarm is on. Call light is with patient. Contact, safety, and fall precautions in place. Will endorse care to dayshift RN.
--- NOTE | 2020-04-09 08:00 | NUR ---
Opening Notes Patient received in bed, with no signs of distress noted. Patient nonverbal but able to open eyes. Patient on sales enablement consultant. Patient on room air. Patient with MANDIE PICC receiving NS at 20 ml/hr. Patient has a j-tube receiving Jevity 1.2 at 55 ml/hr. Patient has a delarosa catheter. Safety precautions enforced.
[2020-04-09] MEDS: VANCOMYCIN HCL 1 GM/NS PREMIX 250 ML IV SCH ×2 (08:37→20:18)
[2020-04-09] MEDS: AMIODARONE HCL 200 MG TABLET PO SCH (08:38)
[2020-04-09] MEDS: CARVEDILOL 3.125 MG TABLET (COREG) PO SCH ×2 (08:38→20:20)
[2020-04-09] MEDS: PANTOPRAZOLE SODIUM 40 MG/VIAL (PROTONIX) IVP SCH (08:39)
[2020-04-09] MEDS: APIXABAN 2.5 MG TABLET GT SCH ×2 (08:40→20:19)
[2020-04-09] MEDS: BALSAM PERU/CASTOR OIL 60 GM OINT...G. TP SCH (09:00)
[2020-04-09] MEDS: NACL 0.9% 1,000 ML IV SCH (11:50)
[2020-04-09 12:50] VITALS: BP_SYST 136
--- NOTE | 2020-04-09 13:27 | NUR ---
DC Planning: f/u snf arrangement with [facility]: s/w Robyn @ [facility], direct ph [phone] that the pt is authorized for inpatient stay today. Aliza is the assigned cm , she will continue to look for snf for the pt. -- Lesley Youngblood, UR dept and CRISTIAN Pires made aware.
[2020-04-09] MEDS: ERTAPENEM SODIUM 1 GM in NS 50 ML IV SCH (16:26)
[2020-04-09 16:47] VITALS: BP_SYST 127
--- NOTE | 2020-04-09 19:30 | NUR ---
Initial Note: Receive report from clint RN. Patient is in bed. No acute distress. Even, nonlabored breathing on room air. PICC line is received IV fluids as ordered. PICC line dressing is c/d/i. J tube is received tubefeeding as ordered. Hernandez is draining clear, yellow urine to gravity. Wound vac in place with light brown drainage. Bed is locked at lowest position. Side rails up x3. Bed alarm is on. Call light is with patient. Contact, safety, and fall precautions in place. Will continue plan of care.
--- NOTE | 2020-04-09 19:40 | NUR ---
Closing Notes Patient endorsed to evening or night nurse supervisor RN using SBAR. Patient in no signs of distress.
[2020-04-09 20:00] VITALS: BP_SYST 93
[2020-04-09] MEDS: ATORVASTATIN 20 MG TABLET PO SCH (20:19)
--- NOTE | 2020-04-10 00:15 | NUR ---
Rounds: Patient is in bed, resting. No acute distress. Respirations are even, nonlabored on room air. Call light is with patient. Contact, safety, and fall precautions in place. Will continue monitoring.
[2020-04-10 00:34] VITALS: BP_SYST 119; BP_SYST 150
--- NOTE | 2020-04-10 02:30 | NUR ---
Rounds: Patient is in bed, resting. No signs of acute distress. Respirations are even, nonlabored on room air. Call light is with patient. Contact, safety, and fall precautions in place. Will continue to monitor.
--- NOTE | 2020-04-10 04:32 | NUR ---
Rounds: Patient is in bed, sleeping. No signs of acute distress. Breathing is even, nonlabored on room air. Call light is with patient. Contact, safety, and fall precautions in place. Will continue monitoring.
--- NOTE | 2020-04-10 06:10 | NUR ---
Closing note: Patient is in bed, resting. No acute distress. Even, nonlabored breathing on room air. PICC line dressing is clean, dry, and intact. Receiving IV fluids as ordered. GJ tube receiving tubefeeding as ordered. GJ tube dressing is clean, dry, and intact. Hernandez is draining clear, yellow urine to gravity. Wound vac in place with light brown drainage. All needs met. Bed is locked at lowest position. Side rails up x3. Bed alarm is on. Call light is with patient. Contact, safety, and fall precautions in place. Will endorse care to dayshift RN.
--- NOTE | 2020-04-10 08:00 | NUR ---
Opening note Patient resting in bed, a/o x1, IV line is patent and infusing well, assessment complete, Safety measures maintained, call light within patient reach, bed at lowest position. Fall, aspiration and contact precautions in place. Will continue to monitor patient for any changes.
--- NOTE | 2020-04-10 08:08 | NUR ---
Nutrition F/U Admitting Diagnosis: Sepsis and Acute Cholecystis Medical History Comment: PMH: Dementia, non-verbal, bed bound Pt also found w/ Dysphagia, G-tube dependant, Hepatomegaly, Cardiomegaly, and multiple pressure injuries per MD note. 04/04 S/P debridement sacral decub ulcer 04/05 tolerating Jtube feeding, Fibersource is being provided by family. 04/02: COVID-19 PCR Negative 04/06: MD note: Wound vac applied to all ulcers, Subjective Information: Pt is POD#6 S/P I&D w/ wound vac. Per MD note, pt's wounds are improving and tolerating tube feedings. Per RN note (04/07), TF was changed to Jevity 1.2 at 55 ml/hr. RD spoke w/ RN Amauri via phone this morning, who reported pt tolerating EN well w/ no residual this morning and FWF adjusted to 30 ml q6h. Current EN regimen alone (Jevity 1.2 at 55 ml/hr) provides 1584 kcal, 73 g pro, 1065 ml free H2O, meeting 88% of upper end of estimated calorie needs and 95% of lower end of estimated protein needs. Tip BID and Prosource BID also given per EMR. RD to follow per nutrition care standards. RD visit has been deferred d/t pt is in Isolation room and lack of PPE. Current Diet Order/Nutrition Support: Jevity 1.2 at 55ml/hr, FWF 30ml Q6H via JT w/ Tip BID and Prosource BID x 3 days. Pertinent Medications: Protonix IV, vancomycin, Eliquis Pertinent Labs 04/08 WBC 12.4H, Na 142WNL, K 4.1WNL, BUN 18WNL, CRE 0.64WNL, BG 110H Weight (821): 123 pounds/ 55.593809 kilograms Skin Integrity Comment: Sterling scale 12. WCS note reviewed (04/06)-- Stage 4 PI Sacrococcygeal area and Unstageable Pressure Injuries on bilateral hip; Bilateral generalized non- pitting edema noted per EMR Current % PO N/A, NPO Estimated Energy Expenditure (kcals/day) 4782-2820 kcal (30-35 kcal/kg adj. IBW for sepsis, pressure ulcers) Estimated Protein Required (g/day) 77-102 g pro/day (1.5-2.0 g pro/kg adj. IBW for sepsis, pressure ulcers) Estimated Fluid Required (l/day) 7635-8605 ml/day (1ml/kcal/day for normal maintenance) Problem/Etiology/Signs/Symptoms Inadequate protein energy intake related to increased nutritional demands as evidenced by sepsis. (*improving) Expected Outcomes/Goals Monitor EN support and EN tolerance w/ goal of pt meeting at least 75% of estimated needs, labs trending WNL, normal GI function, skin integrity, and weight maintenance. Dietitian Recommendations *Recommend continue Tip BID, Prosource BID daily for wound healing. Provides: additional 35 g protein daily. *Continue w/ Jevity at 55ml/hr via JT. Provides: 1584 kcal, 73gm protein and 1065ml fluids daily Meets: 88% of upper end of estimated calorie needs and 73% of lower end of estimated protein needs. Follow Up High Risk: F/U in 2-3days
--- NOTE | 2020-04-10 08:20 | NUR ---
Dietitian Recommendations *Recommend continue Tip BID, Prosource BID daily for wound healing. Provides: additional 35 g protein daily. *Continue w/ Jevity at 55ml/hr via JT. Provides: 1584 kcal, 73gm protein and 1065ml fluids daily Meets: 88% of upper end of estimated calorie needs and 73% of lower end of estimated protein needs. Please see Nutrition F/U for details. EP,RD
[2020-04-10] MEDS: VANCOMYCIN HCL 1 GM/NS PREMIX 250 ML IV SCH ×2 (08:37→20:45)
[2020-04-10] MEDS: PANTOPRAZOLE SODIUM 40 MG/VIAL (PROTONIX) IVP SCH (08:37)
[2020-04-10] MEDS: AMIODARONE HCL 200 MG TABLET PO SCH (08:38)
[2020-04-10] MEDS: CARVEDILOL 3.125 MG TABLET (COREG) PO SCH ×2 (08:39→20:46)
[2020-04-10] MEDS: APIXABAN 2.5 MG TABLET GT SCH ×2 (08:39→20:47)
[2020-04-10 08:59] VITALS: BP_SYST 122
--- NOTE | 2020-04-10 11:30 | NUR ---
RN Rounds Patient laying in bed, patient was repositioned, vitals stable, no signs of distress, IV line patent and infusing, hygiene completed, bed in lowest position, three side rails up, call light within reach, fall/aspiration/contact precautions put in place. Safety measures maintained.
--- NOTE | 2020-04-10 11:40 | NUR ---
RN Rounds patient resting in bed, a/o x 4, no signs of distress, IV line flushed and patent, vital signs stable with exception of BP, will continue to monitor BP, All needs attended to, safety measures maintained, call light within reach, bed at lowest position, fall and aspiration precautions put in place. Addendum: 04/10/20 at 1222 by Vivienne Goodson RN Incorrect patient
[2020-04-10 12:24] VITALS: BP_SYST 150
--- NOTE | 2020-04-10 12:28 | NUR ---
DC Planning: s/w Orville,healthcare financial analyst @ [facility], direct ph [phone] stated Svetlana is the assigned cm today. Orville will contact Svetlana to call me back. Per Orville, the assigned CM can provide the inpatient auth. ( [facility] works from home due to Covid -19 , [facility] is unable to provide the CM direct phone line) Addendum: 04/10/20 at 1609 by Aj Blackman RN >> informed Orville, I have not received a call from Svetlana. Orville will contact the cm for me again. Addendum: 04/10/20 at 1613 by Aj Blackman RN Called back from Orville, delivered message from Svetlana that the pt is authorized inpatient for today.
[2020-04-10] MEDS: NACL 0.9% 1,000 ML IV SCH (12:38)
[2020-04-10] MEDS: BALSAM PERU/CASTOR OIL 60 GM OINT...G. TP SCH (14:25)
[2020-04-10] MEDS: MORPHINE 2 MG/ML INJ. SYRINGE IVP PRN (14:25)
--- NOTE | 2020-04-10 14:25 | NUR ---
Social Service Note: DISTANCE LEARNING ADMINISTRATOR received call from APS worker- Foster Guerrero ([phone]); Foster has stated that pt should not return home, pt should go to a SNF. DISTANCE LEARNING ADMINISTRATOR has updated CM. Foster has been asked to be notified once pt is discharged. DISTANCE LEARNING ADMINISTRATOR will remain available for support.
--- NOTE | 2020-04-10 14:30 | NUR ---
WOUND RE-EVALUATION: Late note for 1430 secondary to patient care. Patient received in a Grinnell Bed with an Isoflex MATT mattress, awake, non-verbal, non-responsive to verbal commands. Patient is unable to turn in bed independently. Sterling Score is a 12. Past Medical History: Dementia, non-verbal, bedbound, pressure injuries to Sacral and bilateral hip areas for months. Microbiology: Blood culture results (one possible contamination suspected, one negative). Sacral wound culture and Bilateral hip wound culture results positive for Staphylococcus aureus and Enterococcus faecalis. Intrinsic factors that delay wound healing: Severe Hypoalbuminemia. Extrinsic factors that delay wound healing: Decreased Immobility. Wound Assessment: 1. Sacrococcygeal area: Stage IV pressure ulcer, present on admission. Wound bed has 55% red tissue, 40% yellow slough, 5% dark discolored slough. Mild odor, no drainage. Sinus tract around 2 o'clock where bone is palpable. Maeve-wound pink, with undermining present from 83 o'clock (1.8 cm at 12 o'clock; 1.2 cm at 3 o'clock; 4.3 cm at 8 o'clock; ). Wound measures 9.0 cm x 8.5 cm x 3.3 cm. 2. Left Lateral Hip near Greater Trochanter: Unstageable pressure ulcer, present on admission. Wound bed has 65% yellow slough, 5% black slough, 30% red tissue. Mild odor, no drainage. Maeve-wound pink, undermining present from 4-6 o'clock and 8-2 o'clock (2.0 cm at 12 o'clock; 0.0 at 3 o'clock; 0.5 cm at 6 o'clock; 0.5 cm at 9 o'clock; 2.3 cm at 1 o'clock (deepest)). Wound measures 5.4 cm x 6.2 cm x 1.7 cm. Recommend continue: Cleanse wounds with normal saline. Apply SurePrep to maeve-wounds and surrounding tissue. Apply Venelex ointment to wound beds. Cut black granufoam dressing to size and place onto wound beds. Cover with Vac drape. Make a bridge from Left Lateral Hip wound to Sacral wound: Apply sure prep to non-bony portion of skin in between both wounds, apply Vac drape to area. Cut a hole into each dressing and insert into hole in each black Granufoam dressing and run across VAC drape. Cover bridged area in between sacral and left lateral hip wounds with more VAC drape. Cut a hole into middle section of Vac drape and attach VAC suction attachment. Run VAC at 125 mmHg continuous, medium ramp. Perform wound care q Monday/Monday/Monday, and as needed for dressing soiling or dislodgement. 3. Right Lateral Hip near Greater Trochanter: Unstageable pressure ulcer, present on admission. Wound bed has 60% yellow slough, 40% pink tissue. Mild odor, no drainage. Undermining present from 123 o'clock (0.9 cm at 12 o'clock; 1.1 cm at 3 o'clock). Wound measures 5.0 cm x 5.5 cm x 1.9 cm. Recommend continue: Cleanse wound with normal saline. Apply SurePrep to maeve-wound and surrounding tissue. Apply Venelex ointment to wound bed. Cut black granufoam dressing to size and place onto wound bed. Cover with Vac Drape. Cut a hole into Vac dressing and attach VAC suction attachment. Run VAC at 125 mmHg continuous, medium ramp. Perform wound care q Monday/Monday/Monday, and as needed for dressing soiling or dislodgement. Also recommend continue: Reposition patient side to side only every 2 hours with pillow support and off-load pressure areas with pillows for pressure re-distribution. Offload, elevate and float bilateral heels with one pillow lengthwise under each extremity at all times. Perform skin care and monitor skin integrity Q shift. Use moisture barrier cream on buttocks and other moisture susceptible areas QID and as needed for soiling. Maintain patient on a low air-loss mattress.
--- NOTE | 2020-04-10 14:30 | NUR ---
Wound care complete with wound care nurse, Dexter FOSTER, please see MST shift assessment for updates.
[2020-04-10 16:08] VITALS: BP_SYST 154
--- NOTE | 2020-04-10 16:14 | NUR ---
RN Rounds patient resting in bed, awake, no distress noted, respirations even and unlabored, safety measures maintained, call light within reach, bed at lowest position, fall/aspirations/contact precautions put in place.
[2020-04-10] MEDS: ERTAPENEM SODIUM 1 GM in NS 50 ML IV SCH (17:39)
--- NOTE | 2020-04-10 18:17 | NUR ---
Closing note patient resting in bed no signs of distress, all needs met, will endorse report to incoming manufacturing supervisor 2nd shift nurse, bed in lowest position, three side rails up, bed alarm on, fall/aspiration/contact precautions in place.
[2020-04-10 20:00] VITALS: BP_SYST 128
--- NOTE | 2020-04-10 20:00 | NUR ---
INITIAL NOTE AT INITIAL ASSESSMENT, PATIENT IS RESTING IN BED, STABLE, NO SIGNS OF RESPIRATORY DISTRESS. PLAN OF CARE FOR THE EVENING IS COMMUNICATED WITH THE PATIENT. PATIENT SHOWS NO PAIN PER FLACC SCALE USED. PATIENT IS UNSUCCESSFUL IN TEACH-BACK OF CALL LIGHT USAGE DUE TO COGNITIVE IMPAIRMENT. BED IS LOCKED, ALARMED, AND AT THE LOWEST LEVEL. FALL, SAFETY, RESPIRATORY, ASPIRATION, AND ISOLATION PRECAUTIONS WILL BE TAKEN THROUGHOUT THE SHIFT. PATIENT WILL BE TURNED AT LEAST [id number] THROUGHOUT THE SHIFT.
[2020-04-10] MEDS: ATORVASTATIN 20 MG TABLET PO SCH (20:46)
--- NOTE | 2020-04-10 21:40 | NUR ---
NOTE SCHEDULED MEDICATIONS GIVEN AT THIS TIME. PATIENT TOLERATED WELL. SHE IS REPOSITIONED FOR COMFORT. CALL LIGHT PLACED WITHIN REACH. BED IS LOCKED, ALARMED, AND AT THE LOWEST LEVEL.
--- NOTE | 2020-04-10 23:40 | NUR ---
NOTE PATIENT IS RESTING IN BED, STABLE, NO SIGNS OF RESPIRATORY DISTRESS. CALL LIGHT PLACED WITHIN REACH. BED IS LOCKED, ALARMED, AND AT THE LOWEST LEVEL.
[2020-04-11] VITALS: BP_SYST 157
[2020-04-11] MEDS: ACETAMINOPHEN 325 MG TABLET PO PRN (00:18)
--- NOTE | 2020-04-11 01:40 | NUR ---
NOTE PATIENT IS SLEEPING, STABLE, NO SIGNS OF RESPIRATORY DISTRESS. SHE IS REPOSITIONED FOR COMFORT. BED IS LOCKED, ALARMED, AND AT THE LOWEST LEVEL.
--- NOTE | 2020-04-11 03:40 | NUR ---
NOTE PATIENT IS SLEEPING, STABLE, NO SIGNS OF RESPIRATORY DISTRESS. SHE IS REPOSITIONED FOR COMFORT. BED IS LOCKED, ALARMED, AND AT THE LOWEST LEVEL.
--- NOTE | 2020-04-11 05:40 | NUR ---
HYGIENE CARE NOTE HYGIENE CARE PROVIDED AT THIS TIME. PATIENT TOLERATED WELL. FRESH LINENS PROVIDED. AT THIS TIME, PATIENT IS STABLE, NO SIGNS OF RESPIRATORY DISTRESS. SHE IS REPOSITIONED FOR COMFORT. BED IS LOCKED, ALARMED, AND AT THE LOWEST LEVEL.
--- NOTE | 2020-04-11 06:40 | NUR ---
CLOSING NOTE PATIENT SLEPT WELL THROUGHOUT THE SHIFT. AT THIS TIME, PATIENT IS RESTING IN BED, STABLE, NO SIGNS OF RESPIRATORY DISTRESS. CALL LIGHT IS WITHIN REACH. BED IS LOCKED, ALARMED, AND AT THE LOWEST LEVEL. FALL, SAFETY, ASPIRATION, ISOLATION, AND RESPIRATORY PRECAUTIONS HAVE BEEN IN PLACE THROUGHOUT THE SHIFT. PATIENT HAS BEEN TURNED [id number] THROUGHOUT THE SHIFT. WILL CONTINUE TO MONITOR UNTIL REPORT IS GIVEN AT BEDSIDE TO AM NURSE.
--- NOTE | 2020-04-11 07:35 | NUR ---
Opening Note Received bedside report from endorsing RN for continuation of care. Received patient awake and resting in bed, no signs or symptoms of acute distress noted. Bed locked in lowest position and bed alarm on. Fall and safety precautions in place.
[2020-04-11 08:00] VITALS: BP_SYST 125
[2020-04-11] MEDS: PANTOPRAZOLE SODIUM 40 MG/VIAL (PROTONIX) IVP SCH (09:52)
[2020-04-11] MEDS: VANCOMYCIN HCL 1 GM/NS PREMIX 250 ML IV SCH ×2 (09:53→20:20)
[2020-04-11] MEDS: APIXABAN 2.5 MG TABLET GT SCH ×2 (09:53→20:21)
[2020-04-11] MEDS: CARVEDILOL 3.125 MG TABLET (COREG) PO SCH ×2 (09:57→20:27)
[2020-04-11] MEDS: BALSAM PERU/CASTOR OIL 60 GM OINT...G. TP SCH (09:58)
[2020-04-11] MEDS: AMIODARONE HCL 200 MG TABLET PO SCH (09:58)
[2020-04-11] MEDS: NACL 0.9% 1,000 ML IV SCH (11:50)
--- NOTE | 2020-04-11 12:14 | NUR ---
Dr. Man in to see patient. New orders received.
[2020-04-11 12:15] VITALS: BP_SYST 125
--- NOTE | 2020-04-11 13:15 | NUR ---
BM Patient had large loose BM. Pericare done, bed bath provided, and bed linens changed with PRACTICE ASSISTANT. Patient cleaned, turned, and repositioned. No signs or symptoms of acute distress noted. Bed locked in lowest position and bed alarm on. Fall and safety precautions in place.
--- NOTE | 2020-04-11 15:25 | NUR ---
Spoke with patient's daughter Destini on the phone regarding patient status and plan of care. All questions answered and education provided.
[2020-04-11 16:14] VITALS: BP_SYST 144
--- NOTE | 2020-04-11 16:49 | NUR ---
Facetime Set up Facetime on the iPad for patient's daughter and patient.
--- NOTE | 2020-04-11 19:04 | NUR ---
Closing Note Endorsed bedside report to oncoming RN using SBAR approach for continuation of care.
--- NOTE | 2020-04-11 19:30 | NUR ---
OPENING NOTES RECEIVED SBAR REPORT FROM DAY SHIFT RN. PT RESTING IN BED WITH HEAD OF BED ELEVATED FOR ASPIRATION PRECAUTIONS. BREATHING EVEN AND UNLABORED TO ROOM AIR. NO S/S OF SHORTNESS OF BREATH OR PAIN NOTED. RIGHT UPPER ARM PICC LINE INTACT, CLEAN AND DRY. IVF RUNNING ORDERED RATE. WOUND VAC IN PLACED ON RIGHT, LEFT HIP AND SACRAL. PT TOLERATING TO TUBE FEEDING. MARQUES CATHETER INTACT, DRAINING BY GRAVITY. SIDE RAILS UP. BED ALARM ON, LOCKED IN LOWEST POSITION. SAFETY, FALL, AND ASPIRATION PRECAUTIONS MAINTAINED. WILL CONTINUE TO MONITOR.
[2020-04-11 20:00] VITALS: BP_SYST 152
--- NOTE | 2020-04-11 20:20 | NUR ---
MEDICATION PASS SCHEDULED MEDICATIONS ADMINISTERED THROUGH GJ TUBE. NO RESIDUAL NOTED. FLUSHED WITH STERILE WATER BETWEEN EACH MEDICATIONS, FLUSHED WELL. PT TOLERATING TO TUBE FEEDING, 55ML/HR. IVF RUNNING ORDERED RATE. BREATHING EVEN AND UNLABORED TO ROOM AIR. NO S/S OF ACUTE DISTRESS NOTED AT THIS TIME. MARQUES CATHETER INTACT, DRAINING BY GRAVITY. SIDE RAILS UP. CLOSE TO NURSING STATION. SAFETY, FALL, AND ASPIRATION PRECAUTIONS ARE IN PLACE. WILL CONTINUE TO MONITOR.
[2020-04-11] MEDS: ATORVASTATIN 20 MG TABLET PO SCH (20:21)
--- NOTE | 2020-04-11 22:55 | NUR ---
RN ROUNDS PT SLEEPING. CHEST RISE AND FALL SYMMETRICAL. BREATHING EVEN AND UNLABORED TO ROOM AIR. NO S/S OF SOB OR PAIN NOTED. IVF RUNNING ORDERED RATE. PT TOLERATING TO TUBE FEEDING. PT TOLERATING WELL. MARQUES CATHETER INTACT, DRAINING BY GRAVITY. BED ALARM ON, LOCKED IN LOWEST POSITION. SIDE RAILS UP. CLOSE TO NURSING STATION. SAFETY, FALL, AND ASPIRATION PRECAUTIONS ARE IN PLACE. WILL CONTINUE TO MONITOR.
--- NOTE | 2020-04-12 01:30 | NUR ---
RN ROUNDS PT RESTING IN BED. BREATHING EVEN AND UNLABORED TO ROOM AIR. NO S/S OF ACUTE DISTRESS NOTED. IVF RUNNING ORDERED RATE. MARQUES CATHETER INTACT, DRAINING BY GRAVITY. BED ALARM ON, LOCKED IN LOWEST POSITION. SIDE RAILS UP. CLOSE TO NURSING STATION. SAFETY, FALL, AND ASPIRATION PRECAUTIONS MAINTAINED. WILL CONTINUE TO MONITOR.
[2020-04-12 02:45] VITALS: BP_SYST 130
--- NOTE | 2020-04-12 03:44 | NUR ---
RN ROUNDS PT RESTING IN BED. BREATHING EVEN AND UNLABORED TO ROOM AIR. NO S/S OF DISTRESS NOTED. IVF RUNNING ORDERED RATE. PT TOLERATING TO TUBE FEEDING, NO RESIDUAL, FLUSHED WELL. MARQUES CATHETER INTACT, DRAINING BY GRAVITY. BED ALARM ON, LOCKED IN LOWEST POSITION. CLOSE TO NURSING STATION. SAFETY, FALL, ASPIRATION, AND CONTACT ISOLATION PRECAUTIONS ARE IN PLACE. WILL CONTINUE TO MONITOR.
--- NOTE | 2020-04-12 04:10 | NUR ---
INCONTINENCE CARE PT HAD BMX1. PROVIDED INCONTINENCE CARE. NO S/S OF DISTRESS NOTED. PT TOLERATED WELL. WOUND VAC STILL INTACT ON RIGHT/LEFT HIP AND SACRAL. IVF RUNNING ORDERED RATE. MARQUES CATHETER INTACT, DRAINING BY GRAVITY. BREATHING EVEN AND UNLABORED TO ROOM AIR. BED ALARM ON, LOCKED IN LOWEST POSITION. SIDE RAILS UP. SAFETY, FALL, ASPIRATION, AND CONTACT ISOLATION PRECAUTIONS ARE IN PLACE. WILL CONTINUE TO MONITOR.
--- NOTE | 2020-04-12 06:27 | NUR ---
CLOSING NOTES PT RESTING IN BED WITH HEAD OF BED ELEVATED. BREATHING EVEN AND UNLABORED TO ROOM AIR. NO S/S OF SOB OR DISTRESS NOTED. RIGHT UPPER ARM PICC LINE INTACT, CLEAN AND DRY. IVF RUNNING ORDERED RATE. WOUND VAC IN PLACED ON RIGHT, LEFT HIP AND SACRAL. PT TOLERATING TO TUBE FEEDING. MARQUES CATHETER INTACT, DRAINING BY GRAVITY. SIDE RAILS UP. BED ALARM ON, LOCKED IN LOWEST POSITION. SAFETY, FALL, AND ASPIRATION PRECAUTIONS MAINTAINED. ALL NEEDS ARE MET THROUGHOUT SHIFT. WILL CONTINUE TO MONITOR UNTIL ENDORSE TO DAY SHIFT RN.
--- NOTE | 2020-04-12 06:48 | NUR ---
VASILE [employer]INGTON PRINCIPAL TRAINER, DR KING WAS CALLED, RE: TO RENEW INVANZ. SPOKE TO ANGE.
--- NOTE | 2020-04-12 07:55 | NUR ---
Opening Notes Patient is laying in bed, resting. Alert and oriented x1, flat affect. Patient is nonverbal. No resp distress noted. Breathing is even and unlabored at this time. Patient shows no signs of pain at this time. PICC LINE on right upper arm, dressing clean and intact. Double lumen, flushing well, blood return noted. No signs of irritation or infiltration noted. NS @ 20 ml/hr, infusing well. Hernandez catheter in place, draining by gravity, emptied out 600 cc of clear and yellow urine, foul odor. GJTube on right lower abdomen intact, clean and dry, no residual noted, flushing well. Tube feed: Jevity 1.2 @ 55 cc/hr, infusing well. Patient has 3 wound vacs: right hip, left hip and sacral. Need to clarify Invanz IV ATB order with ID doctor, will follow up. All needs met at this time. Safety and fall precautions in place. Bed in lowest position, alarm on, locked. Will continue to monitor.
[2020-04-12 08:00] VITALS: BP_SYST 143
[2020-04-12] MEDS: VANCOMYCIN HCL 1 GM/NS PREMIX 250 ML IV SCH ×2 (08:45→21:16)
[2020-04-12] MEDS: PANTOPRAZOLE SODIUM 40 MG/VIAL (PROTONIX) IVP SCH (08:45)
[2020-04-12] MEDS: AMIODARONE HCL 200 MG TABLET PO SCH (08:46)
[2020-04-12] MEDS: CARVEDILOL 3.125 MG TABLET (COREG) PO SCH ×2 (08:46→21:21)
[2020-04-12] MEDS: APIXABAN 2.5 MG TABLET GT SCH ×2 (08:47→21:33)
[2020-04-12] MEDS: BALSAM PERU/CASTOR OIL 60 GM OINT...G. TP SCH (09:00)
[2020-04-12 09:03] LABS: BASOPHILS # (AUTO) 0.1 K/uL (0.0-0.2); BASOPHILS % (AUTO) 0.7 % (0.0-2.0); EOSINOPHILS # (AUTO) 0.3 K/uL (0.0-0.4); HEMATOCRIT 27.9 % (36-48); HEMOGLOBIN 8.8 g/dL (12.0-16.0); LYMPHOCYTES # (AUTO) 1.4 K/uL (1.0-5.5); LYMPHOCYTES % (AUTO) 10.8 % (20.5-51.5); MEAN CORPUSCULAR HEMOGLOBIN 28 pg (27-31); MEAN CORPUSCULAR HGB CONC 32 % (32-36); MEAN CORPUSCULAR VOLUME 87 fL (79.0-98.0); MONOCYTES # (AUTO) 0.9 K/uL (0.0-1.0); MONOCYTES % (AUTO) 6.8 % (1.7-9.3); NEUTROPHILS # (AUTO) 10.1 K/uL (1.8-7.7); NEUTROPHILS % (AUTO) 79.7 % (40.0-70.0); PLATELET COUNT (AUTO) 285 K/uL (130-430); RED CELL DISTRIBUTION WIDTH 20.6 % (9.0-15.0); WHITE BLOOD COUNT (AUTO) 12.7 K/uL (4.8-10.8)
[2020-04-12 09:05] LABS: ANION GAP 4 (5-15); CALCIUM 8.1 mg/dL (8.4-11.0); CHLORIDE 108 mmol/L (98-107); CREATININE 0.64 mg/dL (0.55-1.30); GLUCOSE 132 mg/dL (70-99); POTASSIUM 4.3 mmol/L (3.5-5.1); SODIUM SERUM 139 mmol/L (136-145); UREA NITROGEN, BLOOD 11 mg/dL (8-21)
--- NOTE | 2020-04-12 10:00 | NUR ---
Notes/Downgrade to MEDSURG Patient is laying in bed resting with eyes closed. Down graded patient from TELE > MED SURG. No resp distress noted. Breathing is even and unlabored. Shows no signs of pain at this time. Fermin earl TD: Jevity 1.2 @ 55cc/hr, infusing well. No needs at this time. Safety and fall precautions in place. Bed in lowest position, alarm on, locked. Will continue to monitor.
--- NOTE | 2020-04-12 11:20 | NUR ---
Gave report to CRISTIAN Roca for continuity of care
[2020-04-12] MEDS ORDERED: ERTAPENEM SODIUM 1 GM in NS 50 ML IV SCH (11:45)
[2020-04-12] MEDS: NACL 0.9% 1,000 ML IV SCH (11:50)
[2020-04-12 12:00] VITALS: BP_SYST 131
--- NOTE | 2020-04-12 16:10 | NUR ---
NOTES/BEULAH: CLOTH FINISHING RANGE BACK TENDER faxed updated progress notes from 04/10 through 04/12 to [place].
[2020-04-12 16:54] VITALS: BP_SYST 137
--- NOTE | 2020-04-12 18:19 | NUR ---
CLOSING NOTES, PT HAS BEEN STABLE, NO S/S OF PAIN, DR KING CAME AND SEEN PT, MD ORDERED TO KI LUCAS. NOTED THAT PT HAS SHOWING JERKING MOTIONS. MD SAID TO CONTINUE MONITORING PT. PT TURNED [id number], ORAL CARE DONE. PT'S DAUGHTER SOLOMON CALLED AND SPOKE WITH PT. REQUESTING TO FACETIME PT IN AM. PT'S CONTINUED TO BE ON WOUND VAC. IT IS CLEAN AND INTACT. WILL ENDORSE TO NIGHT NURSE.
[2020-04-12 19:00] VITALS: BP_SYST 121
--- NOTE | 2020-04-12 19:15 | NUR ---
change of shift.pt.presents isolation status.contact esbl,e.coli urine.pt.presents affect;lethargic.speech status;asphasic.pt.presents picc line;location;rt.arm.pt.presents delarosa cath;blood tinged;hematuria.pt.presents wounds vac;y-connection;from the sites;rt/lt.hips.level;150ml.pt.presents g/j tube feed. feed;jevity:1.2 infusing. call light/telephone w/in reach of the pt.
[2020-04-12 20:00] VITALS: BP_SYST 121
[2020-04-12] MEDS: ATORVASTATIN 20 MG TABLET PO SCH (21:21)
[2020-04-13 00:44] VITALS: BP_SYST 128
--- NOTE | 2020-04-13 06:00 | NUR ---
pt.assessed.pt.presents quiescent affect;calm,somnolent.picc line intact patent iv fluids infusing.g/j tube intact patent pt.tolerating the g/j tube feed jevity 1.2 delarosa cath intact patent urine content present hematuria diluted less red hue.wound vac intact patent drainage present. per flacc pain mgx pt.absent facial grimaces/body posturing.pt.assessed for cleanliness.pt.repositioned q-2hrs.call light/ telephone placed w/in access of the pt.
[2020-04-13 08:00] VITALS: BP_SYST 126
--- NOTE | 2020-04-13 08:00 | NUR ---
opening note Received patient awake alert confuse. Patient on room air no shortness of breath noted. IV infusing right bicep PICC 1/2NS at 20ml/hr., additional port blood return and flushed. Dressing intact. G tube placement checked no residual flushed with 50ml sterile water. Restarted jevity 1.2 at 65ml/hr. Wound vac to bilateral hips and sacrum draining brownish colored fluid. Hernandez with securement device inplace draining blood tinged urine. Repositioned patient. Bed in low call light in reach, side rails up for safety. Will continue to monitor.
[2020-04-13] MEDS: VANCOMYCIN HCL 1 GM/NS PREMIX 250 ML IV SCH ×2 (08:12→21:20)
[2020-04-13] MEDS: AMIODARONE HCL 200 MG TABLET PO SCH (08:13)
[2020-04-13] MEDS: APIXABAN 2.5 MG TABLET GT SCH ×2 (08:14→21:40)
[2020-04-13] MEDS: CARVEDILOL 3.125 MG TABLET (COREG) PO SCH ×2 (08:14→21:44)
[2020-04-13] MEDS: PANTOPRAZOLE SODIUM 40 MG/VIAL (PROTONIX) IVP SCH (08:15)
[2020-04-13] MEDS: BALSAM PERU/CASTOR OIL 60 GM OINT...G. TP SCH (08:15)
[2020-04-13 10:04] LABS: BASOPHILS # (AUTO) 0.1 K/uL (0.0-0.2); BASOPHILS % (AUTO) 0.8 % (0.0-2.0); EOSINOPHILS # (AUTO) 0.2 K/uL (0.0-0.4); EOSINOPHILS % (AUTO) 1.5 % (0.0-4.0); HEMATOCRIT 27.6 % (36-48); HEMOGLOBIN 8.9 g/dL (12.0-16.0); LYMPHOCYTES # (AUTO) 1.3 K/uL (1.0-5.5); LYMPHOCYTES % (AUTO) 9.4 % (20.5-51.5); MEAN CORPUSCULAR HEMOGLOBIN 28 pg (27-31); MEAN CORPUSCULAR HGB CONC 32 % (32-36); MEAN CORPUSCULAR VOLUME 88 fL (79.0-98.0); MONOCYTES % (AUTO) 7.2 % (1.7-9.3); NEUTROPHILS # (AUTO) 11.2 K/uL (1.8-7.7); NEUTROPHILS % (AUTO) 81.1 % (40.0-70.0); PLATELET COUNT (AUTO) 311 K/uL (130-430); RED BLOOD CELL COUNT(AUTO) 3.15 MIL/uL (4.2-6.2); RED CELL DISTRIBUTION WIDTH 20.2 % (9.0-15.0); WHITE BLOOD COUNT (AUTO) 13.9 K/uL (4.8-10.8)
[2020-04-13 10:14] LABS: ANION GAP 5 (5-15); CALCIUM 8.1 mg/dL (8.4-11.0); CHLORIDE 109 mmol/L (98-107); CREATININE 0.52 mg/dL (0.55-1.30); GLUCOSE 134 mg/dL (70-99); POTASSIUM 4.3 mmol/L (3.5-5.1); SODIUM SERUM 139 mmol/L (136-145); UREA NITROGEN, BLOOD 10 mg/dL (8-21)
[2020-04-13 12:11] VITALS: BP_SYST 116
[2020-04-13] MEDS: NACL 0.9% 1,000 ML IV SCH (12:17)
--- NOTE | 2020-04-13 13:24 | NUR ---
Nutrition F/U Admitting Diagnosis: Sepsis and Acute Cholecystis Medical History Comment: PMH: Dementia, non-verbal, bed bound Pt also found w/ Dysphagia, G-tube dependant, Hepatomegaly, Cardiomegaly, and multiple pressure injuries per MD note. 04/04 S/P debridement sacral decub ulcer 04/05 tolerating Jtube feeding, Fibersource is being provided by family. 04/02: COVID-19 PCR Negative 04/06: MD note: Wound vac applied to all ulcers, wound vac changes Q MWF Subjective Information: Pt is POD#10 S/P I&D w/ wound vac. Per RN Andreea Hogan, pt has been tolerating EN well, no residuals this morning and still a/w modular delivery to be administered. Current EN formula infusing is Jevity 1.2 at 55ml/hr as ordered. Per bed huddle discussion, pt is a/w SNF placement or transfer to [place]. RD noted elevated Bg and HbA1c 5.7%H. No Hx of DM. BG lab values need to be monitored. Current Diet Order/Nutrition Support: Jevity 1.2 at 55ml/hr, FWF 30ml Q6H via JT w/ Tip BID and Prosource BID Pertinent Medications: Protonix IV, vancomycin, Eliquis, Lipitor Pertinent Labs 04/12 WBC 12.7H, Na 139WNL, K 4.3WNL, BUN 11WNL, CRE 0.64WNL, BG 132H, 04/02 HbA1c 5.7%H Weight (04/03): 123 pounds/ 55.353513 kilograms Skin Integrity Comment: Sterling scale 10. WCS note reviewed (04/10)-- Stage 4 PI Sacrococcygeal area and Unstageable Pressure Injuries on bilateral hip; Bilateral generalized non-pitting edema noted per EMR Estimated Energy Expenditure (kcals/day) 9891-0791 kcal (30-35 kcal/kg adj. IBW for sepsis, pressure ulcers) Estimated Protein Required (g/day) 77-102 g pro/day (1.5-2.0 g pro/kg adj. IBW for sepsis, pressure ulcers) Estimated Fluid Required (l/day) 3914-1825 ml/day (1ml/kcal/day for normal maintenance) Problem/Etiology/Signs/Symptoms Inadequate protein energy intake related to increased nutritional demands as evidenced by sepsis. (*improving) Altered nutrition related labs r/t endocrine dysfunction AEB elevated BG and HbA1c lab values (*new 04/13) Expected Outcomes/Goals Monitor EN support and EN tolerance w/ goal of pt meeting at least 75% of estimated needs, labs trending WNL, normal GI function, skin integrity, and weight maintenance. Dietitian Recommendations *Continue Tip BID and Prosource BID daily for wound healing. *Continue w/ Jevity at 55ml/hr, FWF 30ml Q6H via JT. Provides: 1584 kcal, 73gm protein and 1065ml fluids daily Meets: 88% of upper end of estimated calorie needs and 73% of lower end of estimated protein needs. Follow Up High Risk: F/U in 2-3days
--- NOTE | 2020-04-13 13:32 | NUR ---
Dietitian Recommendations *Continue Tip BID and Prosource BID daily for wound healing. *Continue w/ Jevity at 55ml/hr, FWF 30ml Q6H via JT. Provides: 1584 kcal, 73gm protein and 1065ml fluids daily Meets: 88% of upper end of estimated calorie needs and 73% of lower end of estimated protein needs. Please see Nutrition F/U note for details. PHILLY, RD
[2020-04-13 16:37] VITALS: BP_SYST 131
--- NOTE | 2020-04-13 17:00 | NUR ---
Set up facetime with patient and daughter Ms Padilla.
--- NOTE | 2020-04-13 17:38 | NUR ---
Checked residual, no residual and flushed with 50ml sterile water
--- NOTE | 2020-04-13 18:35 | NUR ---
Closing note Patietn resting in bed no SOB or distress noted. Iv infusing right bicep PICC NS at 20ml/hr. G tube feeding Jevity 1.2ml/hr at 55ml/hr. Hernandez draining blood tinged urine securement devise in place. Wound vac with good vacuum. Draining brown tinged fluid. Bed in low call light in reach, will endorse to next shift.
--- NOTE | 2020-04-13 20:45 | NUR ---
Opening note: Patient in bed resting with HOB elevated. Patient alert x1. Respirations even and unlabored. No signs of distress noted. V/S stable. Patient has Jevity running 1.2 @55 ml/hr. Safety precautions in place: bed in low position, side rails upx2, call light within reach, patient near nurses office. Will continue to monitor through out the night.
[2020-04-13] MEDS: ATORVASTATIN 20 MG TABLET PO SCH (21:28)
[2020-04-14 00:15] VITALS: BP_SYST 140
--- NOTE | 2020-04-14 06:22 | NUR ---
Midnight note: Patient in bed resting. No changes to report. Vital signs remain stable. Safety precautions continue to be in place: HOB elevated, side rails upx2, bed in low position, call light within reach, pt near nurses station. PICC line intact. Dressings dry and intact. Will continue to monitor. Addendum: 04/14/20 at 0694 by [place] compo caster TIME 0000
--- NOTE | 2020-04-14 08:00 | NUR ---
AM ROUNDS: PATIENT CLOSED EYES,SLEEPING. ON CONTACT ISOLATION FOR ESBL URINE.WITH IV TO TKO ,RIGHT UPPER ARM PICC LINE,DRESSING CLEAN AND DRY. TUBE FEEDS ON GOING. MARQUES IN SITU. SACRAL WOUND CONNECTED TO WOUND VAC,LIGHT BROWN DISCHARGES IN THE CANISTER.INTACT. BED LOCKED AT LOWEST POSITION. BED ALARM ON. NO ACUTE DISTRESS.
--- NOTE | 2020-04-14 09:30 | NUR ---
MED CRUSHED: NO RESIDUALS PRIOR TO GIVING MEDS. TOLERATED CRUSHED MEDS AND FLUSHED WITH WATER ORDERED.
[2020-04-14] MEDS: PANTOPRAZOLE SODIUM 40 MG/VIAL (PROTONIX) IVP SCH (09:45)
[2020-04-14] MEDS: CARVEDILOL 3.125 MG TABLET (COREG) PO SCH ×2 (09:45→22:26)
[2020-04-14] MEDS: AMIODARONE HCL 200 MG TABLET PO SCH (09:46)
[2020-04-14] MEDS: APIXABAN 2.5 MG TABLET GT SCH ×2 (09:46→22:20)
[2020-04-14] MEDS: VANCOMYCIN HCL 1 GM/NS PREMIX 250 ML IV SCH ×2 (09:47→20:56)
[2020-04-14 09:58] VITALS: BP_SYST 152
[2020-04-14 10:40] LABS: BASOPHILS # (AUTO) 0.1 K/uL (0.0-0.2); BASOPHILS % (AUTO) 0.9 % (0.0-2.0); EOSINOPHILS # (AUTO) 0.3 K/uL (0.0-0.4); EOSINOPHILS % (AUTO) 2.8 % (0.0-4.0); HEMATOCRIT 29.9 % (36-48); HEMOGLOBIN 9.3 g/dL (12.0-16.0); LYMPHOCYTES # (AUTO) 1.4 K/uL (1.0-5.5); LYMPHOCYTES % (AUTO) 11.4 % (20.5-51.5); MEAN CORPUSCULAR HEMOGLOBIN 28 pg (27-31); MEAN CORPUSCULAR HGB CONC 31 % (32-36); MEAN CORPUSCULAR VOLUME 88 fL (79.0-98.0); MONOCYTES # (AUTO) 0.9 K/uL (0.0-1.0); MONOCYTES % (AUTO) 7.6 % (1.7-9.3); NEUTROPHILS # (AUTO) 9.4 K/uL (1.8-7.7); NEUTROPHILS % (AUTO) 77.3 % (40.0-70.0); PLATELET COUNT (AUTO) 309 K/uL (130-430); RED CELL DISTRIBUTION WIDTH 20.7 % (9.0-15.0); WHITE BLOOD COUNT (AUTO) 12.2 K/uL (4.8-10.8)
[2020-04-14 10:45] LABS: ANION GAP 5 (5-15); CALCIUM 8.4 mg/dL (8.4-11.0); CHLORIDE 108 mmol/L (98-107); CREATININE 0.52 mg/dL (0.55-1.30); GLUCOSE 133 mg/dL (70-99); POTASSIUM 4.5 mmol/L (3.5-5.1); SODIUM SERUM 139 mmol/L (136-145); UREA NITROGEN, BLOOD 12 mg/dL (8-21)
--- NOTE | 2020-04-14 11:00 | NUR ---
RN ROUNDS: WOUND VAC INTACT,NO AIR LEAK NOTED. STABLE.
[2020-04-14 11:33] VITALS: BP_SYST 126
--- NOTE | 2020-04-14 11:33 | NUR ---
DC PLANNING Called & spoke with Mims debby ANGEL today, Dianne direct #[phone], states still has not found a SNF, that has a couple pending that will f/u with. Will call once has accepting SNF.
--- NOTE | 2020-04-14 13:30 | NUR ---
RN ROUNDS: WOUND VAC IN PLACE,NO AIR LEAK NOTED. NO ACUTE DISTRESS.
[2020-04-14] MEDS: NACL 0.9% 1,000 ML IV SCH (13:39)
[2020-04-14] MEDS: BALSAM PERU/CASTOR OIL 60 GM OINT...G. TP SCH (13:46)
--- NOTE | 2020-04-14 15:30 | NUR ---
FLUSH WATER: FLUSHED WITH WATER ORDERED. NO RESIDUALS. WOUND VAC INTACT.NO AIR LEAK. STABLE.
[2020-04-14 16:02] VITALS: BP_SYST 127
--- NOTE | 2020-04-14 16:10 | NUR ---
SPOKE WITH FAMILY: SPOKE WITH FAMILY AND UPDATES GIVEN.
--- NOTE | 2020-04-14 18:43 | NUR ---
END OF SHIFT: PRACTICE GUIDELINES MET THROUGH OUT SHIFT. TUBE FEEDS ON GOING.RIGHT UPPER ARM PICC LINE INTACT. MARQUES IN PLACE. SACRAL WOUND VAC INTACT,NO AIR LEAK NOTED. NOT ANY DISTRESS.
--- NOTE | 2020-04-14 19:35 | NUR ---
Opening note Received report and patient stable. Bed locked in lowest position, bed alarm on and call light w/in reach.
[2020-04-14 20:00] VITALS: BP_SYST 167
--- NOTE | 2020-04-14 20:56 | NUR ---
Elevated B/P B/P is elevated; 167/96, HR 116 and Hydralazine given as ordered. Administered Vanco IVPB and infusing well
[2020-04-14] MEDS: ATORVASTATIN 20 MG TABLET PO SCH (22:18)
--- NOTE | 2020-04-14 22:30 | NUR ---
Meds Due meds given
--- NOTE | 2020-04-15 00:15 | NUR ---
water flush No residual and administered 30 ml water flush, tolerating
[2020-04-15 01:25] VITALS: BP_SYST 136
--- NOTE | 2020-04-15 05:30 | NUR ---
PIIC dressing change dressing changed per hospital policy
--- NOTE | 2020-04-15 07:51 | NUR ---
closing note endorsed care, patient stable
[2020-04-15 08:00] VITALS: BP_SYST 128
--- NOTE | 2020-04-15 08:00 | NUR ---
Opening note. Received patient awake alert non verbal. Patient on room air no SOB or distress noted. IV infusing right bicep NS at 20ml/hr. Hernandez draining jorge colored urine. Wound vac ti posterior wounds marked and no leaks. G tube placement checked no residual. Bed in low call light in reach side rails up for safety. Will continue to monitor.
[2020-04-15] MEDS: AMIODARONE HCL 200 MG TABLET PO SCH (08:40)
[2020-04-15] MEDS: PANTOPRAZOLE SODIUM 40 MG/VIAL (PROTONIX) IVP SCH (08:40)
[2020-04-15] MEDS: CARVEDILOL 3.125 MG TABLET (COREG) PO SCH ×2 (08:41→22:04)
[2020-04-15 08:42] LABS: BASOPHILS # (AUTO) 0.1 K/uL (0.0-0.2); BASOPHILS % (AUTO) 0.4 % (0.0-2.0); EOSINOPHILS # (AUTO) 0.3 K/uL (0.0-0.4); HEMATOCRIT 29.8 % (36-48); HEMOGLOBIN 9.2 g/dL (12.0-16.0); LYMPHOCYTES # (AUTO) 1.5 K/uL (1.0-5.5); LYMPHOCYTES % (AUTO) 11.1 % (20.5-51.5); MEAN CORPUSCULAR HEMOGLOBIN 27 pg (27-31); MEAN CORPUSCULAR HGB CONC 31 % (32-36); MEAN CORPUSCULAR VOLUME 89 fL (79.0-98.0); MONOCYTES # (AUTO) 1.2 K/uL (0.0-1.0); MONOCYTES % (AUTO) 9.3 % (1.7-9.3); NEUTROPHILS # (AUTO) 10.3 K/uL (1.8-7.7); NEUTROPHILS % (AUTO) 77.2 % (40.0-70.0); PLATELET COUNT (AUTO) 212 K/uL (130-430); RED BLOOD CELL COUNT(AUTO) 3.37 MIL/uL (4.2-6.2); RED CELL DISTRIBUTION WIDTH 21.1 % (9.0-15.0); WHITE BLOOD COUNT (AUTO) 13.4 K/uL (4.8-10.8)
[2020-04-15] MEDS: APIXABAN 2.5 MG TABLET GT SCH ×2 (08:42→22:05)
[2020-04-15] MEDS: BALSAM PERU/CASTOR OIL 60 GM OINT...G. TP SCH (08:53)
--- NOTE | 2020-04-15 10:00 | NUR ---
rounded on patient iv infusing well g tube jevity at 55. will continue to monitor
[2020-04-15 11:39] VITALS: BP_SYST 108
--- NOTE | 2020-04-15 12:00 | NUR ---
rounded on patient performeed water flush per orders . Patient tolerated well will continue to monitor.
[2020-04-15] MEDS: NACL 0.9% 1,000 ML IV SCH (12:18)
--- NOTE | 2020-04-15 14:00 | NUR ---
Rounded on patient resting in bed arousable to stimuli. NO SOB or distress noted will continue to monitor.
[2020-04-15] MEDS: ACETAMINOPHEN 325 MG TABLET PO PRN (14:11)
[2020-04-15 15:58] VITALS: BP_SYST 102
--- NOTE | 2020-04-15 16:20 | NUR ---
Case mgt: I called [facility] lead case manager Dianne at [phone] and asked her if she has snf bed yet-she doesn't have bed yet--I reviewed today's ID progress note and temp is 99.6, WBC increased to 13.4--Dianne requested me to fax her today's ID and attending MD notes to [phone], which is faxing now. SANDRA FOSTER Addendum: 04/15/20 at 1626 by Jesica Styles RN Pt is bedbound--no PT notes available to fax to [facility]--SANDRA FOSTER
--- NOTE | 2020-04-15 17:59 | NUR ---
Wound care- Unable to do picture. will endorse.
--- NOTE | 2020-04-15 18:46 | NUR ---
Closing note. Patient resting in bed, eyes closed on room air no SOB or distress noted. Wound vac with no leaks detected, G tube infusing Jevity 1.2 at 55ml/hr. Iv infusing NS at 20ml/hr. Bed in low, call light in reach side rails up for safety. Will endorse to next shift
[2020-04-15 19:00] VITALS: BP_SYST 122
--- NOTE | 2020-04-15 19:15 | NUR ---
change of shift.pt.presents isolation status contact;esbl/e.coli urine.pt.presents picc line intact;patent location:rt.bicept.iv fluids infusing.pt.presents g/j tube intact;patent g/j tube feed infusing;jevity.pt.presents delarosa cath intact patent urine content present. pt.presents wound vac;wounds sacrum.rt/lt hips intact;patent wound drainage present.pt.presents speech status asphasic;call light/telephone w/in reach of the pt.
[2020-04-15 20:00] VITALS: BP_SYST 122
--- NOTE | 2020-04-15 20:00 | NUR ---
pt.assessed.v/s assessed values w/in normal limits.picc line intact;patent iv fluids infusing.g/j tube intact;patent g/j tube feed infusing.delarosa cath intact;patent urine content present.wound vac intact;patent wound drainage present.pt. assessed for cleanliness.pt.repositioned.per flacc pain mgx pt.absent facial grimaces/body posturing.general status stable.respiratory status stable;unlabored.02-sat%=98%@room air. call light/telephone placed w/in reach of the pt. Addendum: 04/16/20 at 0618 by Eber York RN wound vac operating @the rate 125mm suction.wound drainage noted @25ml./w/in the collection chamber.
--- NOTE | 2020-04-15 21:00 | NUR ---
2100p medications administered via the g/j tube.g/j tube feed residuals assessed scant.g/j tube flushed w/out resistance.
--- NOTE | 2020-04-15 22:00 | NUR ---
pt.assessed.pt.assessed for cleanliness.pt.repositioned.per flacc pain mgx pt.absent facial grimaces/body posturing.picc line intact ;patent iv fluids infusing.g/j tube intact;patent g/j tube infusing.delarosa cath intact;patent urine content present.wound vac intact ;patent wound drainage present.general status stable.respiratory status stable;unlabored.o2-sat%=98%.call light/telephone placed w/in access of the pt.
[2020-04-15] MEDS: ATORVASTATIN 20 MG TABLET PO SCH (22:04)
--- NOTE | 2020-04-16 | NUR ---
pt.assessed.v/s assessed values w/in normal limits.pt.assessed for cleanliness.pt.repositioned.g/j tube intact patent g/j tube feed infusing.picc line intact patent iv fluids infusing.delarosa cath intact patent urine content present.wound vac intact patent drainage present.general status stable.respiratory status stable;unlabored.call light/telephone placed w/in access of the pt. Addendum: 04/16/20 at 0619 by Eber York RN wound vac operation@the rate 125mm suction.wound drainage present w/in the collection chamber.
[2020-04-16 01:18] VITALS: BP_SYST 135
--- NOTE | 2020-04-16 02:00 | NUR ---
pt.assessed.pt.for cleanliness.pt.repositioned.wound vac intact;wound dsg intact.delarosa cath intact patent urine content present. g/j tube intact patent g/j tube feed infusing.picc line intact ;patent iv fluids infusing.per flacc pain mgx pt.absent facial grimaces/ body posturing.call light/telephone placed w/in access of the pt.
--- NOTE | 2020-04-16 04:00 | NUR ---
pt.assessed.pt.assessed for cleanliness.pt.repositioned.picc line intact patent iv fluids infusing.g/j tube intact patent g/j tube feed infusing.delarosa cath intact patent urine content present.wound vac intact patent wound drainage present.per flacc pain mgx pt.absent facial grimaces/body posturing.general statu stable.respiratory status stable;unlabored.call light/telephone placed w/in acces of the pt. Addendum: 04/16/20 at 0620 by Eber York RN wound vac operating@the [id number] suction.wound drainage present w/in the collection chamber.
[2020-04-16] MEDS: NACL 0.9% 1,000 ML IV SCH (06:06)
--- NOTE | 2020-04-16 06:12 | NUR ---
pt.assessed.pt.assessed for cleanliness.pt.cleaned/repositioned.picc line intact;patent iv fluids infusing.g/j tube intact;patent g/j tube infusing.delarosa cath intact;patent urine content present.wound vac intact;patent wound drainage present.per flacc pain mgx pt.absent facial grimaces/body posturing.general status stable.respiratory status stable.call light/telephone placed w/in access of the pt.
[2020-04-16 07:06] LABS: BASOPHILS % (AUTO) 0.3 % (0.0-2.0); EOSINOPHILS # (AUTO) 0.4 K/uL (0.0-0.4); EOSINOPHILS % (AUTO) 3.2 % (0.0-4.0); HEMATOCRIT 27.3 % (36-48); HEMOGLOBIN 8.4 g/dL (12.0-16.0); LYMPHOCYTES # (AUTO) 1.5 K/uL (1.0-5.5); LYMPHOCYTES % (AUTO) 12.6 % (20.5-51.5); MEAN CORPUSCULAR HEMOGLOBIN 27 pg (27-31); MEAN CORPUSCULAR HGB CONC 31 % (32-36); MEAN CORPUSCULAR VOLUME 88 fL (79.0-98.0); MONOCYTES % (AUTO) 8.8 % (1.7-9.3); NEUTROPHILS # (AUTO) 8.7 K/uL (1.8-7.7); NEUTROPHILS % (AUTO) 75.1 % (40.0-70.0); PLATELET COUNT (AUTO) 315 K/uL (130-430); RED CELL DISTRIBUTION WIDTH 20.5 % (9.0-15.0); WHITE BLOOD COUNT (AUTO) 11.5 K/uL (4.8-10.8)
[2020-04-16 07:54] LABS: ANION GAP 4 (5-15); CALCIUM 8.4 mg/dL (8.4-11.0); CHLORIDE 107 mmol/L (98-107); CREATININE 0.62 mg/dL (0.55-1.30); GLUCOSE 123 mg/dL (70-99); POTASSIUM 3.7 mmol/L (3.5-5.1); SODIUM SERUM 137 mmol/L (136-145); UREA NITROGEN, BLOOD 17 mg/dL (8-21)
[2020-04-16 08:00] VITALS: BP_SYST 129
[2020-04-16] MEDS: BALSAM PERU/CASTOR OIL 60 GM OINT...G. TP SCH (09:00)
[2020-04-16] MEDS: AMIODARONE HCL 200 MG TABLET PO SCH (09:37)
[2020-04-16] MEDS: CARVEDILOL 3.125 MG TABLET (COREG) PO SCH ×2 (09:37→21:21)
[2020-04-16] MEDS: PANTOPRAZOLE SODIUM 40 MG/VIAL (PROTONIX) IVP SCH (09:38)
[2020-04-16] MEDS: APIXABAN 2.5 MG TABLET GT SCH ×2 (09:38→21:20)
[2020-04-16] MEDS: VANCOMYCIN HCL 1 GM/NS PREMIX 250 ML IV SCH ×2 (09:38→21:18)
--- NOTE | 2020-04-16 11:44 | NUR ---
Social Service Note: PRISON PSYCHIATRIST received call from Aliza Noel, Probate Pharmacy Technologist, ([phone]); Aliza states that she was contacted by APS due to the open conservatorship investigation. Aliza states that she would like to come and see the patient. Aliza will be coming to the hospital on 04/17/20 at 0830. PRISON PSYCHIATRIST will alert MST Director and Vertical Borer. PRISON PSYCHIATRIST will remain available for support and will follow up as needed.
[2020-04-16 12:06] VITALS: BP_SYST 126
--- NOTE | 2020-04-16 14:26 | NUR ---
Nutrition F/U Admitting Diagnosis: Sepsis and Acute Cholecystis Medical History Comment: PMH: Dementia, non-verbal, bed bound Pt also found w/ Dysphagia, G-tube dependant, Hepatomegaly, Cardiomegaly, and multiple pressure injuries per MD note. 04/04 S/P debridement sacral decub ulcer 04/05 tolerating Jtube feeding, Fibersource is being provided by family. 04/02: COVID-19 PCR Negative 04/06: MD note: Wound vac applied to all ulcers, wound vac changes Q MWF Subjective Information: Pt is POD#13 S/P I&D w/ wound vac. RD visit has been deferred to conserve PPE as pt is on isolation for ESBL/MDR. Per Bed Huddle, pt is still waiting for transfer to [facility] or [facility] [place] on [place] for plan/confirmation. RD s/w RN at the nursing station who reports Jevity 1.2 at 55ml/hr still enfusing, no residuals, pt tolerating well. Last BM 04/15. General Medical Practitioner Re-Evaluation (04/10) has been reviewed. Current TF regimen meets 88% of upper end of estimated calorie needs and 73% of lower end of estimated protein needs. Current Diet Order/Nutrition Support: Jevity 1.2 at 55ml/hr, FWF 30ml Q6H via JT w/ Tip BID and Prosource BID Pertinent Medications: Protonix IV, vancomycin, Eliquis, Lipitor Pertinent Labs 04/16 WBC 11.5H, Na 137WNL, K 4.7WNL, BUN 17WNL, CRE 0.62WNL, BG 123H, 04/02 HbA1c 5.7%H Weight (04/03): 123 pounds/ 55.087890 kilograms Skin Integrity Comment: Sterling scale 9. WCS note reviewed (04/10)-- Stage 4 PI Sacrococcygeal area and Unstageable Pressure Injuries on bilateral hip; Left Hand, Bilateral generalized +1 pitting edema noted per EMR Estimated Energy Expenditure (kcals/day) 0598-5631 kcal (30-35 kcal/kg adj. IBW for sepsis, pressure ulcers) Estimated Protein Required (g/day) 77-102 g pro/day (1.5-2.0 g pro/kg adj. IBW for sepsis, pressure ulcers) Estimated Fluid Required (l/day) 8582-1501 ml/day (1ml/kcal/day for normal maintenance) Problem/Etiology/Signs/Symptoms Inadequate protein energy intake related to increased nutritional demands as evidenced by sepsis. (*improving) Altered nutrition related labs r/t endocrine dysfunction AEB elevated BG and HbA1c lab values (*ongoing) Expected Outcomes/Goals Monitor EN support and EN tolerance w/ goal of pt meeting at least 75% of estimated needs, labs trending WNL, normal GI function, skin integrity, and weight maintenance. Dietitian Recommendations *Continue Tip BID and Prosource BID daily for wound healing. *Continue w/ Jevity at 55ml/hr, FWF 30ml Q6H via JT. Provides: 1584 kcal, 73gm protein and 1065ml fluids daily Meets: 88% of upper end of estimated calorie needs and 73% of lower end of estimated protein needs. Follow Up High Risk: F/U in 2-3days
--- NOTE | 2020-04-16 14:31 | NUR ---
Dietitian Recommendations *Continue Tip BID and Prosource BID daily for wound healing. *Continue w/ Jevity at 55ml/hr, FWF 30ml Q6H via JT. Provides: 1584 kcal, 73gm protein and 1065ml fluids daily Meets: 88% of upper end of estimated calorie needs and 73% of lower end of estimated protein needs. Please see Nutrition F/U for further details. LT, RD
[2020-04-16 16:09] VITALS: BP_SYST 133
--- NOTE | 2020-04-16 18:19 | NUR ---
Patient is in bed resting. All care needs met. Patient is alert and oriented to her self only. Patient arouses to light touch. Bed in low position. Call light in reach. Will give report to night nurse.
[2020-04-16 19:11] VITALS: BP_SYST 128
[2020-04-16 20:00] VITALS: BP_SYST 128
[2020-04-16] MEDS: ATORVASTATIN 20 MG TABLET PO SCH (21:19)
[2020-04-17 01:47] VITALS: BP_SYST 128
[2020-04-17 06:46] LABS: BASOPHILS # (AUTO) 0.1 K/uL (0.0-0.2); BASOPHILS % (AUTO) 0.8 % (0.0-2.0); EOSINOPHILS # (AUTO) 0.5 K/uL (0.0-0.4); HEMATOCRIT 26.9 % (36-48); HEMOGLOBIN 8.6 g/dL (12.0-16.0); LYMPHOCYTES # (AUTO) 1.5 K/uL (1.0-5.5); LYMPHOCYTES % (AUTO) 15.2 % (20.5-51.5); MEAN CORPUSCULAR HEMOGLOBIN 28 pg (27-31); MEAN CORPUSCULAR HGB CONC 32 % (32-36); MEAN CORPUSCULAR VOLUME 87 fL (79.0-98.0); NEUTROPHILS # (AUTO) 6.6 K/uL (1.8-7.7); PLATELET COUNT (AUTO) 339 K/uL (130-430); RED BLOOD CELL COUNT(AUTO) 3.11 MIL/uL (4.2-6.2); RED CELL DISTRIBUTION WIDTH 20.1 % (9.0-15.0); WHITE BLOOD COUNT (AUTO) 9.6 K/uL (4.8-10.8)
[2020-04-17 07:21] LABS: ANION GAP 4 (5-15); CALCIUM 8.4 mg/dL (8.4-11.0); CHLORIDE 109 mmol/L (98-107); CREATININE 0.62 mg/dL (0.55-1.30); GLUCOSE 123 mg/dL (70-99); POTASSIUM 4.1 mmol/L (3.5-5.1); SODIUM SERUM 140 mmol/L (136-145); UREA NITROGEN, BLOOD 16 mg/dL (8-21)
[2020-04-17 08:00] VITALS: BP_SYST 133
--- NOTE | 2020-04-17 08:00 | NUR ---
opening note Received patient awake alert aphasic, laying in bed on room air no SOB or distress noted. Wound vac on with no leaks. IV infusing right bicep PICC NS at 20ml/hr. G tube placement checked and no residual. Feeding Jevity 1.2 at 55ml/hr. SCD's in place. Low air lose matress. Bed in low, call light in reach, side rails up for safety. Will continue to monitor.
--- NOTE | 2020-04-17 08:45 | NUR ---
Social Service Note: TRAINING AND DOCUMENTATION SPECIALIST met with Aliza Noel, Probate Theatrical Performer. Aliza met with pt at bedside. TRAINING AND DOCUMENTATION SPECIALIST provided Aliza with requested medical records; Court order to access medical records has been placed in pt's chart. Aliza stated that she would update TRAINING AND DOCUMENTATION SPECIALIST/Dietitian Teaching on 04/21/20 with the decision of the courts regarding pt's conservatorship.
[2020-04-17] MEDS: VANCOMYCIN HCL 1 GM/NS PREMIX 250 ML IV SCH ×2 (09:09→21:42)
[2020-04-17] MEDS: CARVEDILOL 3.125 MG TABLET (COREG) PO SCH ×2 (09:10→21:42)
[2020-04-17] MEDS: AMIODARONE HCL 200 MG TABLET PO SCH (09:10)
[2020-04-17] MEDS: BALSAM PERU/CASTOR OIL 60 GM OINT...G. TP SCH (09:11)
[2020-04-17] MEDS: PANTOPRAZOLE SODIUM 40 MG/VIAL (PROTONIX) IVP SCH (09:11)
[2020-04-17] MEDS: APIXABAN 2.5 MG TABLET GT SCH ×2 (09:11→21:41)
--- NOTE | 2020-04-17 11:33 | NUR ---
SNF arrangement per Prasanna: Updated pt's status to Prasanna Dean CM , the APS filing and is pending document completion by mds. ( see CONE MARKER's notes) , Per Dianne, she will involve the long term care social worker snf manager care management for the long term care social worker placement. The pt will need wound vac, wound care, IV Vanco till tomorrow. CM refaxed all consultation reports , recent progress note, med list, labs, wound care note. to fax# [phone], attn Dianne.
[2020-04-17 11:50] VITALS: BP_SYST 135
[2020-04-17] MEDS: NACL 0.9% 1,000 ML IV SCH (12:25)
--- NOTE | 2020-04-17 14:15 | NUR ---
WOUND RE-EVALUATION: Late note for 141 secondary to patient care. Patient received in a Deland Bed with an Isoflex MATT mattress, awake, non-verbal, non-responsive to verbal commands. Patient is unable to turn in bed independently. Sterling Score is a 12. Past Medical History: Dementia, non-verbal, bedbound, pressure injuries to Sacral and bilateral hip areas for months. Microbiology: Blood culture results (one possible contamination suspected, one negative). Sacral wound culture and Bilateral hip wound culture results positive for Staphylococcus aureus and Enterococcus faecalis. Intrinsic factors that delay wound healing: Severe Hypoalbuminemia. Extrinsic factors that delay wound healing: Decreased Immobility. Wound Assessment: 1. Sacral-Coccygeal area: Stage IV pressure ulcer, present on admission. Wound bed has 70% pink tissue, 10% red tissue, 20% yellow slough. No odor, no drainage. Maeve-wound pink, with undermining present from 74 o'clock (3.2 cm at 7 o'clock; 1.2 cm at 12 o'clock; 0.3 at 3 o'clock). Wound measures 7.0 cm x 7.9 cm x 3.0 cm. 2. Left Lateral Hip near Greater Trochanter: Unstageable pressure ulcer, present on admission. Wound bed has 60% yellow slough, 40% pink tissue. No odor, no drainage. Maeve-wound pink. Undermining present from 7-3 o'clock and 5-6 o'clock (1.4 cm at 12 o'clock; 0.4 at 3 o'clock; 0.4 cm at 6 o'clock). Wound measures 5.0 cm x 6.7 cm x 1.7 cm. Recommend continue: Cleanse wounds with normal saline. Apply SurePrep to maeve-wounds and surrounding tissue. Apply Venelex ointment to wound beds. Cut black granufoam dressing to size and place onto wound beds. Cover with Vac drape. Make a bridge from Left Lateral Hip wound to Sacral wound: Apply sure prep to non-bony portion of skin in between both wounds, apply Vac drape to area. Cut a hole into each dressing and insert into hole in each black Granufoam dressing and run across VAC drape. Cover bridged area in between sacral and left lateral hip wounds with more VAC drape. Cut a hole into middle section of Vac drape and attach VAC suction attachment. Run VAC at 125 mmHg continuous, medium ramp. Perform wound care q Monday/Monday/Monday, and as needed for dressing soiling or dislodgement. 3. Right Lateral Hip near Greater Trochanter: Unstageable pressure ulcer, present on admission. Wound bed has 40% yellow slough, 60% red tissue. Mild odor, no drainage. Undermining present from 102 o'clock (0.8 cm at 10 o'clock; 1.1 cm at 12 o'clock; 0.2 cm at 2 o'clock). Wound measures 5.2 cm x 6.0 cm x 1.0 cm. Recommend continue: Cleanse wound with normal saline. Apply SurePrep to maeve-wound and surrounding tissue. Apply Venelex ointment to wound bed. Cut black granufoam dressing to size and place onto wound bed. Cover with Vac Drape. Cut a hole into Vac dressing and attach VAC suction attachment. Run VAC at 125 mmHg continuous, medium ramp. Perform wound care q Monday/Monday/Monday, and as needed for dressing soiling or dislodgement. 4. Left Proximal Posterior Thigh: Skin tear. Site has 100% red tissue. No odor, no drainage. Periwound intact. Small black scab present lateral to site. Site measures 0.9 cm x 1.0 cm. Recommend: Cleanse wound with normal saline. Apply SurePrep to maeve-wound. Apply Venelex ointment to wound bed. Apply foam dressing over site and black scab. Perform wound care daily, and as needed for dressing soiling or dislodgement. Also recommend continue: Reposition patient side to side only every 2 hours with pillow support and off-load pressure areas with pillows for pressure re-distribution. Offload, elevate and float bilateral heels with one pillow lengthwise under each extremity at all times. Perform skin care and monitor skin integrity Q shift. Use moisture barrier cream on buttocks and other moisture susceptible areas QID and as needed for soiling. Maintain patient on a low air-loss mattress.
[2020-04-17 16:15] VITALS: BP_SYST 158
--- NOTE | 2020-04-17 17:00 | NUR ---
Set up patient for yneny with daughter Jeancarlos
--- NOTE | 2020-04-17 18:42 | NUR ---
Closing note Patient resting in bed with eyes closed. IV infusing right bicep PICC NS at 20ml/hr. G tube feeding Jevity 1.2 at 55ml/hr. Wound vac no noted leaks. SCD"s in place. Bed in low call light in reach side rails up for safety. Will endorse to next shift.
--- NOTE | 2020-04-17 19:10 | NUR ---
OPENING NOTE RECEIVE REPORT FROM MORNING SHIFT NURSE AT BEDSIDE. PATIENT EYES WERE OPEN, WITHDRAWS TO PAIN, AOX0. UNABLE TO FOLLOW ON COMMANDS. NO SIGNS OF RESPIRATORY DISTRESS AND DISCOMFORT NOTED. BREATHING EVEN AND UNLABORED. ON ROOM AIR, TOLERATING WELL. 02 SATURATION OF 100%. VITAL SIGNS TAKEN AND WILL BE RECORDED. G-TUBE FEEDING AND IVF INFUSING WELL, PATENCY NOTED. NO RESIDUAL NOTED ON THE G-TUBE. WOUND VAC AND SCD'S OPERATING WELL. REPOSITIONED PATIENT, PATIENT TOLERATED WELL. MARQUES CATHETER DRAINING BY GRAVITY. BED LOCKED AND IN LOWEST POSITION. BED ALARM ON. CALL LIGHT WITHIN REACH. SAFETY AND ISOLATION PRECAUTIONS IN PLACE. WILL CONTINUE TO MONITOR PATIENT.
[2020-04-17 20:00] VITALS: BP_SYST 117
--- NOTE | 2020-04-17 21:14 | NUR ---
MED PASS DUE MEDICATION GIVEN AT THIS TIME VIA G-TUBE, NO RESIDUAL NOTED. PATIENT TOLERATED WELL. PATIENT WAS EDUCATED ON MEDICATION THAT WAS GIVEN FOR TIS PURPOSE, SIDE EFFECT AND BENEFITS. PATIENT UNABLE TO VERBALIZED UNDERSTANDING DUE TO COGNITIVE LIMITATION. IVF INFUSING WELL. MARQUES DRAINING, WOUND VAC AND SCD'S OPERATING WELL. CALL LIGHT WITHIN REACH. WILL CONTINUE TO MONITOR PATIENT
[2020-04-17] MEDS: ATORVASTATIN 20 MG TABLET PO SCH (21:40)
--- NOTE | 2020-04-17 23:45 | NUR ---
RN ROUNDS PATIENT ASLEEP AT THIS TIME. NO SIGNS OF RESPIRATORY DISTRESS AND DISCOMFORT NOTED. BREATHING EVEN AND UNLABORED. ON ROOM AIR, TOLERATING WELL. G-TUBE FEEDING, WOUND VAC AND SCD'S OPERATING WELL. IVF INFUSING WELL. CALL LIGHT WITHIN REACH. SAFETY PRECAUTIONS IN PLACE. WILL CONTINUE TO MONITOR PATIENT.
[2020-04-18 00:14] VITALS: BP_SYST 113
--- NOTE | 2020-04-18 04:35 | NUR ---
GARRY CARE/ NEW G-TUBE FEEDING GARRY CARE DONE WITH HELP OF CAMPUS PRESIDENT. REPOSITIONED PATIENT. PATIENT TOLERATED WELL. NO SIGNS OF RESPIRATORY DISTRESS AND DISCOMFORT NOTED. BREATHING EVEN AND UNLABORED. ON ROOM AIR TOLERATING WELL. NEW G-TUBE FEEDING HUNG WELL. WOUND VAC, SCD'S OPERATING WELL. CALL LIGHT WITHIN REACH. SAFETY PRECAUTIONS IN PLACE. WILL CONTINUE TO MONITOR PATIENT
[2020-04-18] MEDS: NACL 0.9% 1,000 ML IV SCH (05:47)
--- NOTE | 2020-04-18 05:53 | NUR ---
NEW IVF HUNG NEW IVF HUNG AT THIS TIME. PATIENT ASLEEP NO SIGNS OF RESPIRATORY DISTRESS AND DISCOMFORT NOTED. BREATHING EVEN AND UNLABORED. ON ROOM AIR TOLERATING WELL. CALL LIGHT WITHIN REACH. SAFETY PRECAUTIONS IN PLACE. WILL CONTINUE TO MONITOR PATIENT
--- NOTE | 2020-04-18 06:47 | NUR ---
CLOSING NOTE PATIENT IS AWAKE, WITHDRAWS TO PAIN, AOX0. UNABLE TO FOLLOW ON COMMANDS. NO SIGNS OF RESPIRATORY DISTRESS AND DISCOMFORT NOTED. BREATHING EVEN AND UNLABORED. ON ROOM AIR, TOLERATING WELL. 02 SATURATION OF 99%. G-TUBE FEEDING AND IVF INFUSING WELL, PATENCY NOTED. NO RESIDUAL NOTED ON THE G-TUBE, FLUSHING WELL. WOUND VAC AND SCD'S OPERATING WELL. REPOSITIONED PATIENT Q2H, PRN. MARQUES CATHETER DRAINING BY GRAVITY, EMPTIED AT THIS TIME. BED LOCKED AND IN LOWEST POSITION. BED ALARM ON. CALL LIGHT WITHIN REACH. SAFETY AND ISOLATION PRECAUTIONS IN PLACE. ALL NEEDS MET THROUGHOUT THE SHIFT. WILL CONTINUE TO MONITOR PATIENT UNTIL ENDORSE TO ONCOMING SHIFT NURSE FOR CONTINUITY OF CARE .
--- NOTE | 2020-04-18 07:59 | NUR ---
initial notes rec patient with eyes open but non verbally responsive. picc line in place and infusing with vi well. no infiltration noted. resp easy and unlabored. no sob noted. bed to the lowest position and side rails up and locked. call light within reached and pt close to the nurses station. will continue to monitor patient.
[2020-04-18 08:00] VITALS: BP_SYST 129
[2020-04-18 08:03] LABS: ANION GAP 4 (5-15); CALCIUM 8.3 mg/dL (8.4-11.0); CHLORIDE 109 mmol/L (98-107); CREATININE 0.54 mg/dL (0.55-1.30); GLUCOSE 112 mg/dL (70-99); POTASSIUM 4.2 mmol/L (3.5-5.1); SODIUM SERUM 141 mmol/L (136-145); UREA NITROGEN, BLOOD 19 mg/dL (8-21)
[2020-04-18 08:10] LABS: BASOPHILS # (AUTO) 0.1 K/uL (0.0-0.2); BASOPHILS % (AUTO) 0.6 % (0.0-2.0); EOSINOPHILS # (AUTO) 0.5 K/uL (0.0-0.4); EOSINOPHILS % (AUTO) 5.5 % (0.0-4.0); HEMATOCRIT 25.4 % (36-48); HEMOGLOBIN 8.1 g/dL (12.0-16.0); LYMPHOCYTES # (AUTO) 1.3 K/uL (1.0-5.5); LYMPHOCYTES % (AUTO) 14.8 % (20.5-51.5); MEAN CORPUSCULAR HEMOGLOBIN 28 pg (27-31); MEAN CORPUSCULAR HGB CONC 32 % (32-36); MEAN CORPUSCULAR VOLUME 87 fL (79.0-98.0); MONOCYTES # (AUTO) 0.8 K/uL (0.0-1.0); NEUTROPHILS # (AUTO) 6.2 K/uL (1.8-7.7); NEUTROPHILS % (AUTO) 70.1 % (40.0-70.0); PLATELET COUNT (AUTO) 325 K/uL (130-430); RED BLOOD CELL COUNT(AUTO) 2.91 MIL/uL (4.2-6.2); RED CELL DISTRIBUTION WIDTH 20.1 % (9.0-15.0); WHITE BLOOD COUNT (AUTO) 8.8 K/uL (4.8-10.8)
[2020-04-18] MEDS: VANCOMYCIN HCL 1 GM/NS PREMIX 250 ML IV SCH (09:23)
[2020-04-18] MEDS: APIXABAN 2.5 MG TABLET GT SCH ×2 (09:23→21:11)
[2020-04-18] MEDS: PANTOPRAZOLE SODIUM 40 MG/VIAL (PROTONIX) IVP SCH (09:23)
[2020-04-18] MEDS: BALSAM PERU/CASTOR OIL 60 GM OINT...G. TP SCH (09:24)
--- NOTE | 2020-04-18 10:00 | NUR ---
rounds turned repositioned and with large amount of loose bowel movement. keep patient dry and clean. sacral wound was changed and wound care done. made patent comfortable and daniel well.
[2020-04-18] MEDS: AMIODARONE HCL 200 MG TABLET PO SCH (10:32)
[2020-04-18] MEDS: CARVEDILOL 3.125 MG TABLET (COREG) PO SCH ×2 (10:33→21:12)
--- NOTE | 2020-04-18 12:00 | NUR ---
rounds resting comfortably bed at this time. turned repositioned . no sob noted.
[2020-04-18 12:40] VITALS: BP_SYST 103
--- NOTE | 2020-04-18 14:30 | NUR ---
rounds pt's daughter denia called and updated re erich's condition. requested for facetime and assited by venkata at bedside.
--- NOTE | 2020-04-18 15:22 | NUR ---
Medical Van Driver CENTRAL SUPPLY CLERK faxd over the updated packet to pts. insurance co., [employer] fax, . CENTRAL SUPPLY CLERK will remain available as needed.
--- NOTE | 2020-04-18 15:22 | NUR ---
Dc Planning: User: Siomara SUNSHINE Date: 04/18/20 15:22 Type: Outside Installation Machinist Notes Outside Installation Machinist SENIOR STRATEGY ANALYST faxd over the updated packet to [employer]. [employer] fax, . SENIOR STRATEGY ANALYST will remain available as needed.
--- NOTE | 2020-04-18 16:00 | NUR ---
rounds resting comfortably, sleeping at this time. no sob noted.
[2020-04-18 17:36] VITALS: BP_SYST 145
--- NOTE | 2020-04-18 19:15 | NUR ---
OPENING NOTE/GARRY CARE RECEIVE REPORT FROM CRISTIAN BREWER AT BEDSIDE. PATIENT EYES WERE OPEN, WITHDRAWS TO PAIN, AOX0. UNABLE TO FOLLOW ON COMMANDS. NO SIGNS OF RESPIRATORY DISTRESS AND DISCOMFORT NOTED. BREATHING EVEN AND UNLABORED. ON ROOM AIR, TOLERATING WELL. 02 SATURATION OF 99%. VITAL SIGNS TAKEN AND WILL BE RECORDED. G-TUBE FEEDING AND IVF INFUSING WELL, PATENCY NOTED. NO RESIDUAL NOTED ON THE G-TUBE. WOUND VAC AND SCD'S OPERATING WELL.GARRY CARE DONE WITH HELP OF CECILIA PRIDE AT THIS TIME. REPOSITIONED PATIENT, PATIENT TOLERATED WELL. MARQUES CATHETER DRAINING BY GRAVITY. BED LOCKED AND IN LOWEST POSITION. BED ALARM ON. CALL LIGHT WITHIN REACH. SAFETY AND ISOLATION PRECAUTIONS IN PLACE. WILL CONTINUE TO MONITOR PATIENT.
[2020-04-18 20:00] VITALS: BP_SYST 130
[2020-04-18] MEDS: VANCOMYCIN HCL 750 MG/NS 250 ML IV SCH (21:00)
[2020-04-18] MEDS: ATORVASTATIN 20 MG TABLET PO SCH (21:10)
[2020-04-19 00:15] VITALS: BP_SYST 108
--- NOTE | 2020-04-19 04:35 | NUR ---
GARRY CARE/ NEW G-TUBE FEEDING GARRY CARE DONE WITH HELP OF HOD CARRIER. REPOSITIONED PATIENT. PATIENT TOLERATED WELL. NO SIGNS OF RESPIRATORY DISTRESS AND DISCOMFORT NOTED. BREATHING EVEN AND UNLABORED. ON ROOM AIR TOLERATING WELL. NEW G-TUBE FEEDING HUNG WELL. WOUND VAC, SCD'S OPERATING WELL. CALL LIGHT WITHIN REACH. SAFETY PRECAUTIONS IN PLACE. WILL CONTINUE TO MONITOR PATIENT
--- NOTE | 2020-04-19 06:55 | NUR ---
CLOSING NOTE PATIENT IS ASLEEP AT THIS TIME AOX0. UNABLE TO FOLLOW ON COMMANDS. NO SIGNS OF RESPIRATORY DISTRESS AND DISCOMFORT NOTED. BREATHING EVEN AND UNLABORED. ON ROOM AIR, TOLERATING WELL. 02 SATURATION OF 99%. G-TUBE FEEDING AND IVF INFUSING WELL, PATENCY NOTED. NO RESIDUAL NOTED ON THE G-TUBE, FLUSHING WELL. WOUND VAC AND SCD'S OPERATING WELL. REPOSITIONED PATIENT Q2H, PRN. MARQUES CATHETER DRAINING BY GRAVITY, EMPTIED AT THIS TIME. BED LOCKED AND IN LOWEST POSITION. BED ALARM ON. CALL LIGHT WITHIN REACH. SAFETY AND ISOLATION PRECAUTIONS IN PLACE. ALL NEEDS MET THROUGHOUT THE SHIFT. WILL CONTINUE TO MONITOR PATIENT UNTIL ENDORSE TO ONCOMING SHIFT NURSE FOR CONTINUITY OF CARE .
[2020-04-19 07:41] LABS: ANION GAP 5 (5-15); CALCIUM 8.3 mg/dL (8.4-11.0); CHLORIDE 110 mmol/L (98-107); CREATININE 0.55 mg/dL (0.55-1.30); GLUCOSE 124 mg/dL (70-99); POTASSIUM 4.1 mmol/L (3.5-5.1); SODIUM SERUM 141 mmol/L (136-145); UREA NITROGEN, BLOOD 16 mg/dL (8-21)
[2020-04-19 07:48] LABS: BASOPHILS # (AUTO) 0.1 K/uL (0.0-0.2); BASOPHILS % (AUTO) 0.8 % (0.0-2.0); EOSINOPHILS # (AUTO) 0.6 K/uL (0.0-0.4); EOSINOPHILS % (AUTO) 5.9 % (0.0-4.0); HEMATOCRIT 26.9 % (36-48); HEMOGLOBIN 8.5 g/dL (12.0-16.0); LYMPHOCYTES # (AUTO) 1.5 K/uL (1.0-5.5); LYMPHOCYTES % (AUTO) 15.4 % (20.5-51.5); MEAN CORPUSCULAR HEMOGLOBIN 27 pg (27-31); MEAN CORPUSCULAR HGB CONC 32 % (32-36); MEAN CORPUSCULAR VOLUME 86 fL (79.0-98.0); MONOCYTES # (AUTO) 0.9 K/uL (0.0-1.0); MONOCYTES % (AUTO) 9.2 % (1.7-9.3); NEUTROPHILS # (AUTO) 6.6 K/uL (1.8-7.7); NEUTROPHILS % (AUTO) 68.7 % (40.0-70.0); PLATELET COUNT (AUTO) 325 K/uL (130-430); RED BLOOD CELL COUNT(AUTO) 3.12 MIL/uL (4.2-6.2); RED CELL DISTRIBUTION WIDTH 19.7 % (9.0-15.0); WHITE BLOOD COUNT (AUTO) 9.6 K/uL (4.8-10.8)
[2020-04-19 08:00] VITALS: BP_SYST 127
--- NOTE | 2020-04-19 08:00 | NUR ---
Opening note Received patient awake alert, aphasic. Patient on room air no SOB or distress noted. IV infusing right bicep PICC NS at 20ml/hr via infusion pump. G tube placement checked no residual feeding at 55ml/hr Jevity 1.2. Wound vac to bilateral hips and sacrum no leak noted. SCD's in place. Bed in low, call light in reach, side rails up for safety. Will continue to monitor.
[2020-04-19] MEDS: BALSAM PERU/CASTOR OIL 60 GM OINT...G. TP SCH (09:00)
[2020-04-19] MEDS: PANTOPRAZOLE SODIUM 40 MG/VIAL (PROTONIX) IVP SCH (09:26)
[2020-04-19] MEDS: VANCOMYCIN HCL 750 MG/NS 250 ML IV SCH ×2 (09:26→21:25)
[2020-04-19] MEDS: AMIODARONE HCL 200 MG TABLET PO SCH (09:28)
[2020-04-19] MEDS: CARVEDILOL 3.125 MG TABLET (COREG) PO SCH ×2 (09:29→21:27)
[2020-04-19] MEDS: APIXABAN 2.5 MG TABLET GT SCH ×2 (09:30→21:26)
--- NOTE | 2020-04-19 10:00 | NUR ---
Patient resting in bed eyes closed no sign of distress.
[2020-04-19] MEDS: NACL 0.9% 1,000 ML IV SCH ×2 (11:50→15:13)
[2020-04-19 12:07] VITALS: BP_SYST 113
--- NOTE | 2020-04-19 13:37 | NUR ---
Case mgt: Faxed Dr. Craig and Dr. Lebron's MD progress notes to [facility] at [phone]-- RN
[2020-04-19 16:23] VITALS: BP_SYST 112
--- NOTE | 2020-04-19 18:44 | NUR ---
Closing note Patient resting in bed. On room air no SOB or distress noted. IV infusing via PICC rt bicep NS at 20. Wound vac with good seal. G tube feeding at 55ml/hr jevity 1.2. SCD in place. Bed in low, call light in reach will endorse to next shift.
--- NOTE | 2020-04-19 19:10 | NUR ---
Opening note Received patient awake alert, aphasic. Patient on room air no SOB or distress noted, HOB elevated. IV site patent, dressings c/d/i. G tube in place, checked no residual feeding at 55ml/hr Jevity 1.2, water flush to be provided. Wound vac to bilateral hips and sacrum no leak noted. SCD's in place. Incontinence care to be provided. Call light within reach, bed alarm on, bed at lowest position. Received report that Discharge planning now says Discharge home, but see case coordinator notes. Will continue to monitor. Addendum: 04/19/20 at 2342 by Aliyah Leiva RN Hernandez catheter patent, in place, no kinks, no loops, draining by gravity.
--- NOTE | 2020-04-19 20:22 | NUR ---
SPOKE TO OUTSIDE PHARMACY AND VERIFIED THE VANCOMYCIN ORDER IS BASED ON THE VANCOMYCIN TROUGH DRAWN, SO OK TO PROVIDE VANCOMYCIN FOR THE 2100 DOSE.
[2020-04-19] MEDS: ATORVASTATIN 20 MG TABLET PO SCH (21:25)
--- NOTE | 2020-04-19 23:42 | NUR ---
Patient resting, no signs of acute respiratory distress, patient turned. Will continue to monitor.
[2020-04-20 00:22] VITALS: BP_SYST 152
--- NOTE | 2020-04-20 04:24 | NUR ---
Patient is resting, eyes open. No respiratory distress noted. Turning provided, patient tolerated well. Will continue to monitor.
[2020-04-20 07:03] LABS: BASOPHILS # (AUTO) 0.1 K/uL (0.0-0.2); BASOPHILS % (AUTO) 0.7 % (0.0-2.0); EOSINOPHILS # (AUTO) 0.5 K/uL (0.0-0.4); EOSINOPHILS % (AUTO) 6.6 % (0.0-4.0); HEMATOCRIT 26.2 % (36-48); HEMOGLOBIN 8.2 g/dL (12.0-16.0); LYMPHOCYTES # (AUTO) 1.1 K/uL (1.0-5.5); LYMPHOCYTES % (AUTO) 13.4 % (20.5-51.5); MEAN CORPUSCULAR HEMOGLOBIN 27 pg (27-31); MEAN CORPUSCULAR HGB CONC 31 % (32-36); MEAN CORPUSCULAR VOLUME 86 fL (79.0-98.0); MONOCYTES # (AUTO) 0.8 K/uL (0.0-1.0); MONOCYTES % (AUTO) 10.2 % (1.7-9.3); NEUTROPHILS # (AUTO) 5.6 K/uL (1.8-7.7); NEUTROPHILS % (AUTO) 69.1 % (40.0-70.0); PLATELET COUNT (AUTO) 332 K/uL (130-430); RED BLOOD CELL COUNT(AUTO) 3.03 MIL/uL (4.2-6.2); RED CELL DISTRIBUTION WIDTH 19.7 % (9.0-15.0); WHITE BLOOD COUNT (AUTO) 8.1 K/uL (4.8-10.8)
[2020-04-20 07:13] LABS: ANION GAP 7 (5-15); CHLORIDE 110 mmol/L (98-107); CREATININE 0.65 mg/dL (0.55-1.30); GLUCOSE 137 mg/dL (70-99); POTASSIUM 4.1 mmol/L (3.5-5.1); SODIUM SERUM 142 mmol/L (136-145); UREA NITROGEN, BLOOD 22 mg/dL (8-21)
--- NOTE | 2020-04-20 07:25 | NUR ---
CLOSING NOTES Received patient awake alert, aphasic. Patient on room air, no SOB or distress noted, HOB elevated. IV site patent, dressings c/d/i. G tube in place, checked no residual feeding at 55ml/hr Jevity 1.2, water flush provided. Wound vac to bilateral hips and sacrum in place. SCD's in place. Incontinence care provided. Hernandez catheter draining by gravity, no kinks, no loops noted, jorge urine noted. Call light within reach, bed alarm on, bed at lowest position. All needs met throughout shift. Will endorse care to oncoming shift.
[2020-04-20 07:48] VITALS: BP_SYST 113
--- NOTE | 2020-04-20 08:00 | NUR ---
Note Pt resting in bed with IVF's infusing through MANDIE PICC which is intact and patent at this time.Pt has GT feeding infusing well at this time - site benign and intact. Hernandez catheter intact and draining. Wound vac attached to sacrum, left hip and right hip. Pt is non verbal and only responds to light stimuli. No SOB/resp distress or pain/discomfort noted at this time. No needs noted at this time. SCD's on bilaterally and elevated on pillows at this time. Pt next to nurses' station for close observation for needs and care. Pt on contact isolation for ESBL/E-Coli. Call light within reach.
[2020-04-20] MEDS: VANCOMYCIN HCL 750 MG/NS 250 ML IV SCH (08:50)
[2020-04-20] MEDS: CARVEDILOL 3.125 MG TABLET (COREG) PO SCH ×2 (08:51→21:21)
[2020-04-20] MEDS: AMIODARONE HCL 200 MG TABLET PO SCH (08:51)
[2020-04-20] MEDS: PANTOPRAZOLE SODIUM 40 MG/VIAL (PROTONIX) IVP SCH (08:51)
[2020-04-20] MEDS: APIXABAN 2.5 MG TABLET GT SCH ×2 (08:52→21:22)
[2020-04-20] MEDS: BALSAM PERU/CASTOR OIL 60 GM OINT...G. TP SCH (08:53)
--- NOTE | 2020-04-20 10:30 | NUR ---
Note Hygiene care for stool incontinence and wound vac change was done at this time. Pt tolerated hygiene care and turning side to side for wound vac change well. Pt now resting, no needs noted. Call light within reach.
--- NOTE | 2020-04-20 11:15 | NUR ---
Note Pt's daughter Destini called for update on pt's status. Pt resting in bed, no needs noted at this time. Call light within reach.
[2020-04-20 12:13] VITALS: BP_SYST 128
--- NOTE | 2020-04-20 13:03 | NUR ---
Nutrition F/U Admitting Diagnosis: Sepsis and Acute Cholecystis Medical History Comment: PMH: Dementia, non-verbal, bed bound Pt also found w/ Dysphagia, G-tube dependant, Hepatomegaly, Cardiomegaly, and multiple pressure injuries per MD note. 04/04 S/P debridement sacral decub ulcer 04/05 tolerating Jtube feeding, Fibersource is being provided by family. 04/02: COVID-19 PCR Negative, Negative 04/06 04/06: MD note: Wound vac applied to all ulcers, wound vac changes Q MWF Subjective Information: Pt is POD#17 S/P I&D w/ wound vac. RD visit has been deferred to conserve PPE as pt is on isolation for ESBL/MDR. Per MD notes, pt is still waiting for transfer to [facility] or [facility] waiting on [facility] for plan/confirmation. RD reviewed Boiler Plant Operator re-eval on 04/17 and noted Stage IV PI to sacrococcygeal area. CRISTIAN Valdovinos and CRISTIAN Tracy at bedside providing care. RD s/w pt's primary RN Rossana who reported 5ml residual this morning and RN was unsure if Tip and Prosource were delivered. RD verified w/ kitchen staff, modulars were delivered w/ EN formula around 0730, RD rounded 1020 and CRISTIAN Tracy has not administered modulars yet. Current Diet Order/Nutrition Support: Jevity 1.2 at 55ml/hr, FWF 30ml Q6H via JT w/ Tip BID and Prosource BID Pertinent Medications: Protonix IV, vancomycin, Eliquis, Lipitor Pertinent Labs 04/20 WBC 11.5H, Na 142WNL, K 4.1WNL, BUN 22H, CRE 0.65WNL, BG 137H, 04/02 HbA1c 5.7%H Weight (04/03): 123 pounds/ 55.517976 kilograms Skin Integrity Comment: Sterling scale 14. Boiler Plant Operator re-eval note 04/17-- Stage 4 PI Sacrococcygeal area and Unstageable Pressure Injuries on bilateral hip; Left Hand, Bilateral generalized +1 pitting edema noted per EMR Estimated Energy Expenditure (kcals/day) 5780-4910 kcal (30-35 kcal/kg adj. IBW for sepsis, pressure ulcers) Estimated Protein Required (g/day) 77-102 g pro/day (1.5-2.0 g pro/kg adj. IBW for sepsis, pressure ulcers) Estimated Fluid Required (l/day) 6202-9636 ml/day (1ml/kcal/day for normal maintenance) Problem/Etiology/Signs/Symptoms Inadequate protein energy intake related to increased nutritional demands as evidenced by sepsis. (*improving) Altered nutrition related labs r/t endocrine dysfunction AEB elevated BG and HbA1c lab values (*ongoing) Increased nutrient needs r/t compromised skin integrity AEB increased protein needs for wound healing and presence of pressure injury. (*new 04/20) Expected Outcomes/Goals Monitor EN support and EN tolerance w/ goal of pt meeting at least 75% of estimated needs, labs trending WNL, normal GI function, skin integrity, and weight maintenance. Dietitian Recommendations *Continue Tip BID and Prosource BID daily for wound healing. *Continue w/ Jevity 1.2 at 55ml/hr, FWF 30ml Q6H via JT. Provides: 1804 kcal, 108gm protein and 1245ml fluids daily Meets: 101% of upper end of estimated calorie needs and 106% of upper end of estimated protein needs. Follow Up High Risk: F/U in 2-3days
--- NOTE | 2020-04-20 13:11 | NUR ---
Dietitian Recommendations *Continue Tip BID and Prosource BID daily for wound healing. *Continue w/ Jevity 1.2 at 55ml/hr, FWF 30ml Q6H via JT. Provides: 1804 kcal, 108gm protein and 1245ml fluids daily Meets: 101% of upper end of estimated calorie needs and 106% of upper end of estimated protein needs. Please see Nutrition F/U note for details. PHILLY, RD
--- NOTE | 2020-04-20 14:40 | NUR ---
Note Pt resting comfortably in bed. No needs noted at this time. GT feedings infusing well at this time. Hernandez catheter intact and draining. Call light within reach.
--- NOTE | 2020-04-20 15:37 | NUR ---
Spoke w/ Caro web marketing analyst at [facility]-she stated they are continuing to look for SNF placement for pt-they are unable to find placement-they will send authorization for today if SNF is not found
[2020-04-20 16:14] VITALS: BP_SYST 130
--- NOTE | 2020-04-20 16:15 | NUR ---
Note Pt resting in bed with GT feedings infusing well, Hernandez catheter intact and draining. Wound vac in place and working well draining output at this time. MANDIE PICC intact and patent infusing IVF's well. Pt is non verbal all shift and is able to rack staff coming into the room to do care and perform tasks. No needs noted at this time. Call light within reach.
--- NOTE | 2020-04-20 18:05 | NUR ---
Note Pt resting in bed with IVF's infusing through MANDIE PICC which is intact and patent at this time. No SOB/resp distress or pain/discomfort noted at this time. GT feedings infusing well - site intact and benign at this time. Hernandez catheter intact and draining. Wound vac intact and draining. Pt was checked on q1' and PRN all shift for needs and care. Pt was maintained with safety and isolation precautions all shift. Pt bed in low position and bed alarm on all shift. No needs noted at this time. Pt next to nurses' station all shift for close observation. Call light within reach. Pt has bilateral SCD's on and feet elevated on pillows all shift - keep bilateral heels off the bed.
--- NOTE | 2020-04-20 19:30 | NUR ---
OPENING NOTES RECEIVED SBAR REPORT FROM DAY SHIFT RN. PT RESTING IN BED WITH HEAD OF BED ELEVATED FOR ASPIRATION PRECAUTIONS. BREATHING EVEN AND UNLABORED TO ROOM AIR. NO S/S OF ACUTE DISTRESS OR SHORTNESS OF BREATH NOTED. MANDIE PICC LINE INTACT, IVF RUNNING ORDERED RATE. PT TOLERATING TO TUBE FEEDING. MARQUES CATHETER INTACT, DRAINING BY GRAVITY. PT HAS WOUND VAC ATTACHED TO SACRUM, LEFT HIP AND RIGHT HIP. BED ALARM ON, LOCKED IN LOWEST LEVEL. SIDE RAILS UP X3. SAFETY, FALL, ASPIRATION, AND CONTACT ISOLATION PRECAUTIONS ARE IN PLACE. WILL CONTINUE TO MONITOR.
[2020-04-20 20:00] VITALS: BP_SYST 110
[2020-04-20] MEDS: ATORVASTATIN 20 MG TABLET PO SCH (21:21)
--- NOTE | 2020-04-20 21:22 | NUR ---
MEDICATION PASS SCHEDULED MEDICATIONS ADMINISTERED ORDERED THROUGH GJ-TUBE. RESIDUAL OF 5ML. FLUSHED WITH STERILE WATER BETWEEN EACH MEDICATIONS. FLUSHED WELL. BREATHING EVEN AND UNLABORED TO ROOM AIR. NO S/S OF DISTRESS NOTED. IVF RUNNING ORDERED RATE. PT TOLERATING WELL. MARQUES CATHETER INTACT, DRAINING BY GRAVITY. BED ALARM ON, LOCKED IN LOWEST POSITION. SIDE RAILS UP X3. SAFETY, FALL, ASPIRATION, AND ISOLATION PRECAUTIONS ARE MAINTAINED. WILL CONTINUE TO MONITOR.
--- NOTE | 2020-04-20 23:45 | NUR ---
RN ROUNDS PT SLEEPING. CHEST RISE AND FALL SYMMETRICAL. BREATHING EVEN AND UNLABORED TO ROOM AIR. PT TOLERATING TO TUBE FEEDING AT 55ML/HR. IVF RUNNING ORDERED RATE, INFUSING WELL. NO S/S OF DISTRESS NOTED. BED ALARM ON. SAFETY, FALL, AND ISOLATION PRECAUTIONS ARE IN PLACE. WILL CONTINUE TO MONITOR.
--- NOTE | 2020-04-21 01:56 | NUR ---
RN ROUNDS PT RESTING IN BED. BREATHING EVEN AND UNLABORED TO ROOM AIR. NO S/S OF ACUTE DISTRESS OR PAIN NOTED. MANDIE INTACT, RUNNING ORDERED RATE. WOUND VACS DRAINING WELL. MARQUES CATHETER INTACT, DRAINING BY GRAVITY. BED ALARM ON, LOCKED IN LOWEST POSITION. SIDE RAILS UP X3. CLOSE TO NURSING STATION. SAFETY, FALL, ASPIRATION, AND ISOLATION PRECAUTIONS MAINTAINED. WILL CONTINUE TO MONITOR.
[2020-04-21 05:14] VITALS: BP_SYST 119
[2020-04-21] MEDS: NACL 0.9% 1,000 ML IV SCH (06:35)
--- NOTE | 2020-04-21 06:44 | NUR ---
CLOSING NOTES PT RESTING IN BED WITH HEAD OF BED ELEVATED FOR ASPIRATION PRECAUTIONS. BREATHING EVEN AND UNLABORED TO ROOM AIR. NO S/S OF RESPIRATORY DISTRESS OR PAIN NOTED. MANDIE PICC LINE INTACT, IVF RUNNING ORDERED RATE. PT TOLERATING TO TUBE FEEDING. MARQUES CATHETER INTACT, DRAINING BY GRAVITY. PT HAS WOUND VAC ATTACHED TO SACRUM, LEFT HIP AND RIGHT HIP. BED ALARM ON, LOCKED IN LOWEST LEVEL. SIDE RAILS UP. SAFETY, FALL, ASPIRATION, AND CONTACT ISOLATION PRECAUTIONS ARE IN PLACE. ALL NEEDS ARE MET THROUGHOUT SHIFT. WILL CONTINUE TO MONITOR UNTIL ENDORSE TO DAY SHIFT RN.
[2020-04-21 08:00] VITALS: BP_SYST 146
--- NOTE | 2020-04-21 08:00 | NUR ---
Note Pt resting in bed with GT feedings infusing through site - which is intact and patent at this time. No SOB/resp distress or pain/discomfort noted at this time. Hernandez catheter intact and draining. MANDIE PICC intact and patent. No needs noted at this time. Call light within reach. Pt next to nurses' station for close observation for needs nand care. Dr Domínguez at bedside at 0750am to assess pt and write orders.
[2020-04-21] MEDS: BALSAM PERU/CASTOR OIL 60 GM OINT...G. TP SCH (08:33)
[2020-04-21] MEDS: PANTOPRAZOLE SODIUM 40 MG/VIAL (PROTONIX) IVP SCH (08:48)
[2020-04-21] MEDS: APIXABAN 2.5 MG TABLET GT SCH ×2 (08:49→21:22)
[2020-04-21] MEDS: AMIODARONE HCL 200 MG TABLET PO SCH (08:49)
[2020-04-21] MEDS: CARVEDILOL 3.125 MG TABLET (COREG) PO SCH ×2 (08:50→21:20)
--- NOTE | 2020-04-21 09:42 | NUR ---
SNF per [facility]: s/w titus Graves # [phone], she is waiting for [facility] belt snf to respond. So far there is no accepting snf, she will call me with update later on today. Addendum: 04/21/20 at 1503 by Aj Blackman RN >> Updated Erin about pending snf from [place]. She agreed with the transfer to any snf per insurance. She stated wanting the pt to get the best care, she is unable to provide at this time. The pt will need continuation of st 4 sacral wound care with wound vac.
--- NOTE | 2020-04-21 10:35 | NUR ---
Note Pt has her eyes open at this time when RN walked into room. Pt has been non-verbal all shift. No needs noted at this time. Call light within reach.
[2020-04-21 12:10] VITALS: BP_SYST 132
--- NOTE | 2020-04-21 13:35 | NUR ---
Note Pt is face timing her daughter Destini at this time. Pt falls in and out of sleep at this time with family all speaking to pt at this time..
[2020-04-21 16:07] VITALS: BP_SYST 119
--- NOTE | 2020-04-21 16:20 | NUR ---
Note Pt has been given 2X hygiene care for bowel movement incontinence this shift. Pt stable and resting once again. No needs noted at this time. Call light within reach.
--- NOTE | 2020-04-21 18:05 | NUR ---
Note Pt resting in bed next to nurses' station with GT feedings infusing well. Hernandez catheter intact and draining. Wound vac has been in place and draining well all shift. Pt was checked on q1' and PRN all shift for needs and care. MANDIE PICC intact and patent infusing IVF's well. Pt was maintained with safety and isolation precautions all shift. No needs noted at this time. Call light within reach.
--- NOTE | 2020-04-21 19:30 | NUR ---
OPENING NOTES PT RESTING IN BED WITH HEAD OF BED ELEVATED FOR ASPIRATION PRECAUTIONS. BREATHING EVEN AND UNLABORED TO ROOM AIR. NO S/S OF DISTRESS. MANDIE PICC LINE INTACT, IVF RUNNING ORDERED RATE. PT TOLERATING TO TUBE FEEDING AT 55ML/HR. MARQUES CATHETER INTACT, DRAINING BY GRAVITY. PT HAS WOUND VAC ATTACHED TO SACRUM, LEFT HIP AND RIGHT HIP. BED ALARM ON, LOCKED IN LOWEST LEVEL. SIDE RAILS UP. SAFETY, FALL, ASPIRATION, AND CONTACT ISOLATION PRECAUTIONS ARE IN PLACE. CLOSE TO NURSING STATION. WILL CONTINUE TO MONITOR.
[2020-04-21 20:00] VITALS: BP_SYST 111
--- NOTE | 2020-04-21 21:20 | NUR ---
MEDICATION PASS SCHEDULED MEDICATIONS ADMINISTERED THROUGH GJ TUBE. NO RESIDUAL NOTED. FLUSHED WITH STERILE WATER BETWEEN EACH MEDICATIONS. FLUSHED WELL. BREATHING EVEN AND UNLABORED TO ROOM AIR. NO S/S OF DISTRESS NOTED. IVF RUNNING ORDERED RATE. MARQUES CATHETER INTACT, DRAINING BY GRAVITY. SIDE RAILS UP. CLOSE TO NURSING STATION. SAFETY, FALL, ASPIRATION, AND CONTACT PRECAUTIONS MAINTAINED. WILL CONTINUE TO MONITOR.
[2020-04-21] MEDS: ATORVASTATIN 20 MG TABLET PO SCH (21:21)
--- NOTE | 2020-04-21 23:55 | NUR ---
RN ROUNDS PT SLEEPING. CHEST RISE AND FALL SYMMETRICAL. BREATHING EVEN AND UNLABORED TO ROOM AIR. NO S/S OF DISTRESS NOTED. PT TOLERATING TO TUBE FEEDING, NO RESIDUAL NOTED. IVF RUNNING ORDERED RATE. MARQUES CATHETER INTACT, DRAINING BY GRAVITY. BED ALARM ON. CLOSE TO NURSING STATION. SIDE RAILS UP. SAFETY, FALL, ASPIRATION, AND ISOLATION PRECAUTIONS ARE IN PLACE. WILL CONTINUE TO MONITOR.
[2020-04-22 00:08] VITALS: BP_SYST 109
--- NOTE | 2020-04-22 02:15 | NUR ---
RESTING PT RESTING IN BED WITH HEAD OF BED ELEVATED. BREATHING EVEN AND UNLABORED TO ROOM AIR. PT TOLERATING TO TUBE FEEDING @55ML/HR. IVF RUNNING ORDERED RATE. NO SIGNS OF INFILTRATION NOTED. MARQUES CATHETER INTACT, DRAINING BY GRAVITY. BED ALARM ON. BED LOCKED IN LOWEST POSITION. SIDE RAILS UP. SAFETY, FALL, ASPIRATION, AND ISOLATION PRECAUTIONS ARE IN PLACE. WILL MONITOR.
--- NOTE | 2020-04-22 03:43 | NUR ---
RN ROUNDS PT RESTING IN BED. BREATHING EVEN AND UNLABORED TO ROOM AIR. NO S/S OF RESPIRATORY DISTRESS NOTED. PT TOLERATING TO TUBE FEEDING @55ML/HR. IVF RUNNING ORDERED RATE. MARQUES CATHETER INTACT, DRAINING BY GRAVITY. BED ALARM ON. BED LOCKED IN LOWEST POSITION. SIDE RAILS UP X3. SAFETY, FALL, ASPIRATION, AND ISOLATION PRECAUTIONS ARE IN PLACE. WILL CONTINUE TO MONITOR. Addendum: 04/22/20 at 0409 by Riya Enrique RN DISCARD-WRONG TIME
--- NOTE | 2020-04-22 04:30 | NUR ---
PICC LINE DRESSING CHANGE ASEPTIC TECHNIQUES USED FOR DRESSING CHANGES. NO S/S OF DISTRESS NOTED. PT TOLERATED WELL. BREATHING EVEN AND UNLABORED TO ROOM AIR. IVF RUNNING ORDERED RATE. MARQUES CATHETER INTACT, DRAINING BY GRAVITY. BED ALARM ON, LOCKED IN LOWEST POSITION. SIDE RAILS UP. SAFETY, FALL, ASPIRATION, AND ISOLATION PRECAUTIONS ARE IN PLACE. WILL CONTINUE TO MONITOR.
[2020-04-22] MEDS: NACL 0.9% 1,000 ML IV SCH (04:42)
--- NOTE | 2020-04-22 06:35 | NUR ---
CLOSING NOTES PT RESTING IN BED. BREATHING EVEN AND UNLABORED TO ROOM AIR. NO S/S OF SOB OR PAIN NOTED. MANDIE PICC LINE INTACT, IVF RUNNING ORDERED RATE. PT TOLERATING TO TUBE FEEDING AT 55ML/HR. NO RESIDUAL NOTED. FLUSHED WELL. MARQUES CATHETER INTACT, DRAINING BY GRAVITY. WOUND VAC ATTACHED TO SACRUM, LEFT HIP AND RIGHT HIP. BED ALARM ON, LOCKED IN LOWEST LEVEL. SIDE RAILS UP. SAFETY, FALL, ASPIRATION, AND CONTACT ISOLATION PRECAUTIONS ARE IN PLACE. ALL NEEDS ARE MET THROUGHOUT SHIFT. WILL CONTINUE TO MONITOR UNTIL ENDORSE TO DAY SHIFT RN.
--- NOTE | 2020-04-22 07:26 | NUR ---
OPENING NOTE Patient resting in the bed. No acute distress. HOB elevated. Skin warm and dry to touch. PICC line intact to R UA, no redness, no swelling, no drainage. Covered with clean and dry transparent dressing. On NS at 20ml/hr, infusing well. On tube feeding of Jevity 1.2 at 55ml/hr. F/C intact, drain gravity with yellow urine. Wound intact to wound vac. SCD in placed. On contact isolation. Safety measure maintained. Bed locked in low position, side rails up, bed alarm on. Will continue to monitor.
--- NOTE | 2020-04-22 07:58 | NUR ---
SEEN AND EXAMINED BY DR. QUIROZ [facility].
[2020-04-22 08:00] VITALS: BP_SYST 127
--- NOTE | 2020-04-22 09:14 | NUR ---
[facility] f/u: Called [facility] dept. Jeramy Bedoya,search marketing analyst: Debbie is assigned CM today. She starts working at 11 am. I requested the call back to give me the progress of [facility] finding. Per .dr Domínguez's note: Pt is POD #19 for irrigation and excisional rodrigo of decub ulcers. Has wound vac intact. Done with [facility] and [facility]. Still waiting on [place] [facility] to approve/provide bed at [facility]. Pt is stable to be dc'd.
[2020-04-22] MEDS: PANTOPRAZOLE SODIUM 40 MG/VIAL (PROTONIX) IVP SCH (09:15)
[2020-04-22] MEDS: AMIODARONE HCL 200 MG TABLET PO SCH (09:16)
[2020-04-22] MEDS: CARVEDILOL 3.125 MG TABLET (COREG) PO SCH ×2 (09:16→20:56)
[2020-04-22] MEDS: APIXABAN 2.5 MG TABLET GT SCH ×2 (09:17→20:56)
[2020-04-22] MEDS: BALSAM PERU/CASTOR OIL 60 GM OINT...G. TP SCH (09:18)
--- NOTE | 2020-04-22 10:00 | NUR ---
TURNED AND REPOSITIONED Patient resting in the bed. No acute distress. Turned and repositioned, patient tolerated well. Keeps HOB elevated. PICC line intact, IVF infusing well. Continue on tube feeding , tolerated well. F/C intact, drain gravity. Safety measure maintained. Call light within reached. Bed locked in low position, side rails up, bed alarm on. Contact isolation maintained. Continue to monitor.
[2020-04-22 12:08] VITALS: BP_SYST 128
--- NOTE | 2020-04-22 12:20 | NUR ---
WOUND CARE DONE Wound treatment done as ordered. Wound on Sacral/coccgeal area, left hip, and right hip care done, dressing changed and connected to wound vac, drainage well. Patient no acute distress, tolerated procedure well. Safety measure maintained. Call light within reached. Bed locked in low position, side rails up, bed alarm on. Contact isolation maintained. Continue to monitor.
--- NOTE | 2020-04-22 12:42 | NUR ---
WOUND RE-EVALUATION: Patient received in a Beaver Bed with an Isoflex MATT mattress, awake, non-verbal, non-responsive to verbal commands. Patient is unable to turn in bed independently. Sterling Score is a 13. Past Medical History: Dementia, non-verbal, bedbound, pressure injuries to Sacral and bilateral hip areas for months. Intrinsic factors that delay wound healing: Severe Hypoalbuminemia. Extrinsic factors that delay wound healing: Decreased Immobility. Wound Assessment: 1. Sacral-Coccygeal area: Stage IV pressure ulcer, present on admission. Wound bed has 65% pink tissue, 15% red tissue, 20% yellow slough. No odor, no drainage. Maeve-wound pink, with undermining present from 74 o'clock (3.4 cm at 9 o'clock; 1.0 cm at 12 o'clock; 2.0 at 3 o'clock). Wound measures 9.0 cm x 7.6 cm x 3.0 cm. 2. Left Lateral Hip near Greater Trochanter: Unstageable pressure ulcer, present on admission. Wound bed has 50% yellow slough, 50% pink tissue. No odor, no drainage. Maeve-wound pink. Undermining present from 10-4 o'clock (0.3 cm at 10 o'clock; 1.4 at 12 o'clock; 0.5 cm at 3 o'clock). Wound measures 5.0 cm x 6.4 cm x 1.7 cm. Recommend continue: Cleanse wounds with normal saline. Apply SurePrep to maeve-wounds and surrounding tissue. Apply Venelex ointment to wound beds. Cut black granufoam dressing to size and place onto wound beds. Cover with Vac drape. Make a bridge from Left Lateral Hip wound to Sacral wound: Apply sure prep to non-bony portion of skin in between both wounds, apply Vac drape to area. Cut a hole into each dressing and insert into hole in each black Granufoam dressing and run across VAC drape. Cover bridged area in between sacral and left lateral hip wounds with more VAC drape. Cut a hole into middle section of Vac drape and attach VAC suction attachment. Run VAC at 125 mmHg continuous, medium ramp. Perform wound care q Monday/Monday/Monday, and as needed for dressing soiling or dislodgement. 3. Right Lateral Hip near Greater Trochanter: Unstageable pressure ulcer, present on admission. Wound bed has 30% yellow slough, 70% light red tissue. Mild odor, no drainage. Undermining present from 101 o'clock (0.2 cm at 10 o'clock; 0.7 cm at 12 o'clock; 0.2 cm at 1 o'clock). Wound measures 4.3 cm x 5.4 cm x 1.1 cm. Recommend continue: Cleanse wound with normal saline. Apply SurePrep to maeve-wound and surrounding tissue. Apply Venelex ointment to wound bed. Cut black granufoam dressing to size and place onto wound bed. Cover with Vac Drape. Cut a hole into Vac dressing and attach VAC suction attachment. Run VAC at 125 mmHg continuous, medium ramp. Perform wound care q Monday/Monday/Monday, and as needed for dressing soiling or dislodgement. 4. Left Proximal Posterior Thigh: Skin tear. Site has resolved. Recommend: Cleanse site with normal saline. Apply moisture barrier cream to site. Perform site care qid as needed for soiling. Also recommend continue: Reposition patient side to side only every 2 hours with pillow support and off-load pressure areas with pillows for pressure re-distribution. Offload, elevate and float bilateral heels with one pillow lengthwise under each extremity at all times. Perform skin care and monitor skin integrity Q shift. Use moisture barrier cream on buttocks and other moisture susceptible areas QID and as needed for soiling. Maintain patient on a low air-loss mattress.
--- NOTE | 2020-04-22 14:40 | NUR ---
ROUND Patient resting in the bed. No acute distress. HOB elevated. Continue on tube feeding, tolerated well. PICC line intact, IVF infusing well. F/C intact, drainage gravity. Wound vac intact, drain red color. Contact isolation maintained. Safety measure maintained. Call light within reached. Bed locked in low position, side rails up, bed alarm on. Continue to monitor.
[2020-04-22 16:35] VITALS: BP_SYST 133
--- NOTE | 2020-04-22 16:52 | NUR ---
ROUND Patient resting in the bed with eye closed. No acute distress. HOB elevated. Continue on tube feeding, tolerated well. PICC line intact, IVF infusing well. F/C intact, drainage gravity. Wound vac intact, drain red color. Contact isolation maintained. Safety measure maintained. Call light within reached. Bed locked in low position, side rails up, bed alarm on. Continue to monitor.
--- NOTE | 2020-04-22 18:55 | NUR ---
CLOSING NOTE Patient resting in the bed. No acute distress. HOB elevated. Skin warm and dry to touch. PICC line intact to MANDIE, no redness, no swelling, no drainage. Covered with clean and dry transparent dressing. On NS at 20ml/hr, infusing well. On tube feeding of Jevity 1.2 at 55ml/hr. F/C intact, drain gravity with yellow urine. Wound intact to wound vac. SCD in placed. On contact isolation. All needs met. Safety measure maintained. Bed locked in low position, side rails up, bed alarm on. Will endorse to night nurse.
--- NOTE | 2020-04-22 19:20 | NUR ---
Opening note Received patient awake alert, aphasic. Patient on room air, no SOB or distress noted, HOB elevated. IV site patent, dressings c/d/i. G tube in place, checked no residual feeding at 55ml/hr Jevity 1.2, water flush to be provided. Wound vac to bilateral hips and sacrum, no leak noted. Hernandez catheter in place, draining by gravity, no kinks, no loops, bag not touching the floor, draining well. SCD's in place. Call light within reach, bed alarm on, bed at lowest position. Received report that there is no placement yet, but please see manager of case notes. Will continue to monitor.
[2020-04-22 20:00] VITALS: BP_SYST 115
[2020-04-22] MEDS: ATORVASTATIN 20 MG TABLET PO SCH (20:55)
--- NOTE | 2020-04-22 22:10 | NUR ---
Patient resting, no signs of distress noted. Eyes closed. Repositioned. Will continue to monitor.
[2020-04-23 00:24] VITALS: BP_SYST 100
--- NOTE | 2020-04-23 02:50 | NUR ---
Patient resting, eyes open, no signs of pain or SOB at this time. Will continue to monitor.
--- NOTE | 2020-04-23 04:55 | NUR ---
PATIENT'S FAMILY, SONAL, FACE-TIMING PATIENT AT THIS TIME.
[2020-04-23 05:57] LABS: ANION GAP 4 (5-15); CHLORIDE 112 mmol/L (98-107); CREATININE 0.49 mg/dL (0.55-1.30); GLUCOSE 99 mg/dL (70-99); POTASSIUM 4.5 mmol/L (3.5-5.1); SODIUM SERUM 143 mmol/L (136-145); UREA NITROGEN, BLOOD 28 mg/dL (8-21)
--- NOTE | 2020-04-23 06:51 | NUR ---
CLOSING NOTES Patient resting, eyes open, patient had spoken a few words when face timing family. Patient on room air, no SOB or distress noted, HOB elevated. IV site patent, dressings c/d/i. G tube in place, checked no residual feeding at 55ml/hr Jevity 1.2, water flush provided. Wound vac to bilateral hips and sacrum in place, draining. SCD's in place. Incontinence care provided. Hernandez catheter draining by gravity, no kinks, no loops noted, jorge urine noted. Call light within reach, bed alarm on, bed at lowest position. All needs met throughout shift. Will endorse care to oncoming shift.
--- NOTE | 2020-04-23 07:20 | NUR ---
OPENING NOTE Patient resting in the bed. No acute distress. HOB elevated. Skin warm and dry to touch. PICC line intact to MANDIE, no redness, no swelling, no drainage. Covered with clean and dry transparent dressing. On NS at 20ml/hr, infusing well. On tube feeding of Jevity 1.2 at 55ml/hr. F/C intact, drain gravity with jorge urine. Wound intact to wound vac, drain well. SCD in placed. On contact isolation. Safety measure maintained. Bed locked in low position, side rails up, bed alarm on. Call light within reached. Will continue to monitor.
[2020-04-23] MEDS: NACL 0.9% 1,000 ML IV SCH (07:36)
[2020-04-23 07:48] VITALS: BP_SYST 137
--- NOTE | 2020-04-23 08:25 | NUR ---
SEEN AND EXAMINED BY DR. QUIROZ [facility].
[2020-04-23] MEDS: AMIODARONE HCL 200 MG TABLET PO SCH (08:44)
[2020-04-23] MEDS: PANTOPRAZOLE SODIUM 40 MG/VIAL (PROTONIX) IVP SCH (08:44)
[2020-04-23] MEDS: APIXABAN 2.5 MG TABLET GT SCH ×2 (08:45→22:19)
[2020-04-23] MEDS: CARVEDILOL 3.125 MG TABLET (COREG) PO SCH ×2 (08:45→22:17)
[2020-04-23] MEDS: BALSAM PERU/CASTOR OIL 60 GM OINT...G. TP SCH (08:46)
--- NOTE | 2020-04-23 09:40 | NUR ---
ROUND Patient resting in the bed. No acute distress. HOB elevated. PICC intact, IVF infusing well. Continue on tube feeding, tolerated well. F/C intact, drain gravity. Isolation maintained. Safety measure maintained. Call light within reached. Bed locked in low position, side rails up, bed alarm on. Continue to monitor.
--- NOTE | 2020-04-23 11:18 | NUR ---
SEEN AND EXAMINED BY CRISTY MATTHEWS
--- NOTE | 2020-04-23 12:22 | NUR ---
Prasanna: Agatha Vieira is the assigned CM today # [phone], fax# [phone]. s/w Ghazala/her office assistant receptionist for snf arrangement status. Said, Agatha is not available but she will call back with the update.
[2020-04-23 12:36] VITALS: BP_SYST 124
--- NOTE | 2020-04-23 13:47 | NUR ---
ROUND Patient resting in the bed. No acute distress. HOB elevated. On tube feeding tolerated well. PICC line intact, IVF infusing well. F/C intact, drain gravity. Continue on isolation. Safety measure maintained. Call light within reached. Bed locked in low position, side rails up, bed alarm on. Continue to monitor.
--- NOTE | 2020-04-23 13:50 | NUR ---
Nutrition F/U Admitting Diagnosis: Sepsis and Acute Cholecystis Medical History Comment: PMH: Dementia, non-verbal, bed bound Pt also found w/ Dysphagia, G-tube dependant, Hepatomegaly, Cardiomegaly, and multiple pressure injuries per MD note. 04/04 S/P debridement sacral decub ulcer 04/05 tolerating Jtube feeding, Fibersource is being provided by family. 04/02: COVID-19 PCR Negative, Negative 04/06 04/06: MD note: Wound vac applied to all ulcers, wound vac changes Q MWF Subjective Information: Pt is POD#20 S/P I&D w/ wound vac. RD visit has been deferred to conserve PPE as pt is on isolation for ESBL/MDR. Per MD notes, pt is still waiting for transfer to [facility] or [facility] waiting on [place] for plan/confirmation. RD reviewed Flash Oven Operator re-eval on 04/22 and noted Stage IV PI to sacrococcygeal area and unstageable PIs to the left/right lateral hip. Pt is receiving Prosource and Tip to aid in would healing. Current EN regimen meets 101% of upper end of estimated calorie needs and 106% of upper end of estimated protein needs daily which is adequate to meet pts nutrition needs. 0-30ml residuals noted per EMR since last RD F/U. Current Diet Order/Nutrition Support: Jevity 1.2 at 55ml/hr, FWF 30ml Q6H via JT w/ Tip BID and Prosource BID Pertinent Medications: Protonix IV, vancomycin, Eliquis, Lipitor Pertinent Labs 04/23 WBC 8.1WNL, Na 143WNL, K 4.5WNL, BUN 28H, CRE 0.49L, BG 99, 04/02 HbA1c 5.7%H Weight (04/03): 123 pounds/ 55.614919 kilograms Skin Integrity Comment: Sterling scale 14. Flash Oven Operator re-eval note 04/17-- Stage 4 PI Sacrococcygeal area and Unstageable Pressure Injuries on bilateral hip; Left Hand, non pitting edema to the left hand and bilateral generalized noted per EMR Estimated Energy Expenditure (kcals/day) 6149-3815 kcal (30-35 kcal/kg adj. IBW for sepsis, pressure ulcers) Estimated Protein Required (g/day) 77-102 g pro/day (1.5-2.0 g pro/kg adj. IBW for sepsis, pressure ulcers) Estimated Fluid Required (l/day) 8629-8105 ml/day (1ml/kcal/day for normal maintenance) Problem/Etiology/Signs/Symptoms Inadequate protein energy intake related to increased nutritional demands as evidenced by sepsis. (*improving) Altered nutrition related labs r/t endocrine dysfunction AEB elevated BG and HbA1c lab values (*ongoing) Increased nutrient needs r/t compromised skin integrity AEB increased protein needs for wound healing and presence of pressure injury. (*new 04/20) Expected Outcomes/Goals Monitor EN support and EN tolerance w/ goal of pt meeting at least 75% of estimated needs, labs trending WNL, normal GI function, skin integrity, and weight maintenance. Dietitian Recommendations *Continue Tip BID and Prosource BID daily for wound healing. *Continue w/ Jevity 1.2 at 55ml/hr, FWF 30ml Q6H via JT. Provides: 1804 kcal, 108gm protein and 1245ml fluids daily Meets: 101% of upper end of estimated calorie needs and 106% of upper end of estimated protein needs. Follow Up High Risk: F/U in 2-3days
--- NOTE | 2020-04-23 13:54 | NUR ---
Dietitian Recommendations *Continue Tip BID and Prosource BID daily for wound healing. *Continue w/ Jevity 1.2 at 55ml/hr, FWF 30ml Q6H via JT. Provides: 1804 kcal, 108gm protein and 1245ml fluids daily Meets: 101% of upper end of estimated calorie needs and 106% of upper end of estimated protein needs. Please see Nutrition F/U for further details. LT, RD
--- NOTE | 2020-04-23 15:55 | NUR ---
RECEIVED THE CALL FROM DAUGHTER TO REQUEST FACE TIME WITH THE PATIENT'S SISTER CASANDRA . ALSO UPDATED THE CONDITION OF THE PATIENT.
[2020-04-23 16:07] VITALS: BP_SYST 132
--- NOTE | 2020-04-23 16:20 | NUR ---
FACE TIME WITH THE PATIENT'S SISTER
--- NOTE | 2020-04-23 18:38 | NUR ---
CLOSING NOTE Patient resting in the bed. No acute distress. HOB elevated all the time. Skin warm and dry to touch. PICC line intact to MANDIE, no redness, no swelling, no drainage. Covered with clean and dry transparent dressing. On NS at 20ml/hr, infusing well. On tube feeding of Jevity 1.2 at 55ml/hr, tolerated well. No s/s of aspiration noted. F/C intact, drain gravity with yellow urine. Wound intact to wound vac. SCD in placed. On contact isolation. All needs met. Safety measure maintained. Bed locked in low position, side rails up, bed alarm on. Will endorse to night nurse.
--- NOTE | 2020-04-23 19:30 | NUR ---
OPENING NOTE late entry d/t patient care Received patient awake, resting in bed on MATT mattress, no s/sx of distress, nonlabored breathing on room air. IVF infusing via PIIC to MANDIE. She has feeding runnig at 55 ml/hr via G-tube. Hernandez catheter has drainage bag to gravity. she has Wound VAC drainage container and has output of orange fluid. Bed is locked in lowest position, bed alarm on, 3x side rails up and call light w/in reach. Updated board.
[2020-04-23 20:00] VITALS: BP_SYST 124
[2020-04-23] MEDS: ATORVASTATIN 20 MG TABLET PO SCH (22:14)
[2020-04-24 00:14] VITALS: BP_SYST 113
[2020-04-24] MEDS: NACL 0.9% 1,000 ML IV SCH ×3 (04:05→22:30)
--- NOTE | 2020-04-24 04:15 | NUR ---
IVF Hung new bag of NS and infusing as ordered. Patient was repositioned and turned.
--- NOTE | 2020-04-24 07:00 | NUR ---
closing note Patient awake, resting in bed on MATT mattress, no s/sx of distress, nonlabored breathing on room air. IVF infusing via PIIC to MANDIE. She has feeding runnig at 55 ml/hr via G-tube. Hernandez catheter has drainage bag to gravity. Wound VAC drainage contaier collecting orange fluid. Water flushes provided as ordered, no residual patient tolerated. Hung new feeding bottle and provided supplemental protein of Prosource and Tip. Safety, isolation and aspiration precautions maintained. Needs met throughout shift, will endorse care
[2020-04-24 07:54] VITALS: BP_SYST 108
--- NOTE | 2020-04-24 08:00 | NUR ---
Initial notes In bed awake, non verbal. on room air, afebrile. No acute distress noted. oral care done, repositioned patient. tolerating feeding. wound vac on, no leakage noted. Seen by Dr. Domínguez. Will monitor
[2020-04-24] MEDS: AMIODARONE HCL 200 MG TABLET PO SCH (08:05)
[2020-04-24] MEDS: PANTOPRAZOLE SODIUM 40 MG/VIAL (PROTONIX) IVP SCH (08:05)
[2020-04-24] MEDS: CARVEDILOL 3.125 MG TABLET (COREG) PO SCH ×2 (08:06→22:29)
[2020-04-24] MEDS: APIXABAN 2.5 MG TABLET GT SCH ×2 (08:06→22:28)
[2020-04-24] MEDS: BALSAM PERU/CASTOR OIL 60 GM OINT...G. TP SCH (08:07)
[2020-04-24 08:26] LABS: ANION GAP 7 (5-15); CHLORIDE 109 mmol/L (98-107); CREATININE 0.53 mg/dL (0.55-1.30); GLUCOSE 125 mg/dL (70-99); POTASSIUM 4.7 mmol/L (3.5-5.1); SODIUM SERUM 141 mmol/L (136-145); UREA NITROGEN, BLOOD 33 mg/dL (8-21)
--- NOTE | 2020-04-24 12:05 | NUR ---
Notes Resting, repositioned. No acute distress noted.
[2020-04-24 12:08] VITALS: BP_SYST 123
--- NOTE | 2020-04-24 12:10 | NUR ---
[place]: f/u snf placement with Agatha, assigned CM # [phone], [place] [facility] care dept has sent out referral to several contracted and non contracted and , so far there is no accepting facility. Agatha aware the pt has APS review and needs snf placement. Agatha will consult her garage supervisor and call me back with the placement update/plan.
--- NOTE | 2020-04-24 15:47 | NUR ---
notes- wound care dressing done.
[2020-04-24 16:39] VITALS: BP_SYST 120
--- NOTE | 2020-04-24 18:49 | NUR ---
Notes Resting, no change in assessment. afebrile the whole shift. No acute distress noted. will endorse
--- NOTE | 2020-04-24 19:20 | NUR ---
OPENING NOTE Received patient awake, resting in bed on MATT mattress, no s/sx of distress, nonlabored breathing on room air. IVF infusing via PIIC to MANDIE. She has feeding runnig at 55 ml/hr via G-tube. Hernandez catheter has drainage bag to gravity. Wound VAC drainage contaier is new and has minimal output of red/orange fluid. Bed is locked in lowest position, bed alarm on, 3x side rails up and call light w/in reach. Updated board.
[2020-04-24 20:00] VITALS: BP_SYST 138
--- NOTE | 2020-04-24 22:28 | NUR ---
Meds, IVF Due meds given via G-Tube, no residual and tolerating. Hung new bag of IVF and infusing as ordered.
[2020-04-24] MEDS: ATORVASTATIN 20 MG TABLET PO SCH (22:29)
--- NOTE | 2020-04-25 00:10 | NUR ---
Feeding bottle hung new bottle of feeding along w/ new tubing, provided water flush, tolerating.
[2020-04-25 01:21] VITALS: BP_SYST 121
--- NOTE | 2020-04-25 02:41 | NUR ---
rounds patient resting in comfortable position, no sign of distress, non labored breathing. IVF infusing well and feeding running as ordered and tolerating.
--- NOTE | 2020-04-25 04:35 | NUR ---
patient care Patient provided w/partial bed bath & CHG bath. She had BM and provided w/ maeve-care and clean pad & linen. Repositioned and turned. Safety, isolation, aspiration precautions maintained.
--- NOTE | 2020-04-25 05:45 | NUR ---
water flush No residual, gave water flush and also elia and prosource protein supplements
--- NOTE | 2020-04-25 07:00 | NUR ---
closing note Patient awake, resting in bed on MATT mattress, no s/sx of distress, nonlabored breathing on room air. IVF infusing via PIIC to MANDIE. She has feeding runnig at 55 ml/hr via G-tube. Hernandez catheter has drainage bag to gravity. Wound VAC drainage contaier is new and has minimal output of red/orange fluid. Bed is locked in lowest position, bed alarm on, 3x side rails up and call light w/in reach. Needs met throughout shift, will endorse care
[2020-04-25 08:00] VITALS: BP_SYST 130
[2020-04-25] MEDS: APIXABAN 2.5 MG TABLET GT SCH ×2 (10:31→21:10)
[2020-04-25] MEDS: CARVEDILOL 3.125 MG TABLET (COREG) PO SCH ×2 (10:31→21:00)
[2020-04-25] MEDS: PANTOPRAZOLE SODIUM 40 MG/VIAL (PROTONIX) IVP SCH (10:32)
[2020-04-25] MEDS: AMIODARONE HCL 200 MG TABLET PO SCH (10:32)
[2020-04-25] MEDS: BALSAM PERU/CASTOR OIL 60 GM OINT...G. TP SCH (10:33)
--- NOTE | 2020-04-25 11:43 | NUR ---
Clinical review faxed to [facility]-requested SNF placemnt for patient
[2020-04-25 12:14] VITALS: BP_SYST 121
[2020-04-25] MEDS: NACL 0.9% 1,000 ML IV SCH (14:20)
[2020-04-25 15:39] VITALS: BP_SYST 106
--- NOTE | 2020-04-25 19:00 | NUR ---
closing notes pt sleeping soundly at this time. facetime with family in progress. no sob noted. gt feedings daniel well. no residual noted. call light within reached. pt close to the nurses station.
--- NOTE | 2020-04-25 19:30 | NUR ---
Initial Note: Receive report from clint RN. Patient is in bed, facetiming with family. No acute distress. Tolerating room air, respirations are even and nonlabored. PICC line is received IV fluids as ordered. PICC line dressing is c/d/i. GJ tube dressing is c/d/i. Tubefeeding noted. Hernandez is draining clear, yellow urine to gravity. Wound vac in place with light red drainage. Bed is locked at lowest position. Side rails up x3. Bed alarm is on. Call light is with patient. Contact, safety, and fall precautions in place. Will continue plan of care.
[2020-04-25 20:00] VITALS: BP_SYST 105
[2020-04-25] MEDS: ATORVASTATIN 20 MG TABLET PO SCH (21:09)
--- NOTE | 2020-04-25 21:30 | NUR ---
Rounds: Patient resting in bed. No s/s of acute distress. Even, nonlabored breathing on room air. Call light is with patient. Safety and fall precautions in place. Will continue to monitor.
--- NOTE | 2020-04-25 23:50 | NUR ---
Rounds: Patient resting in bed. No acute distress. Even, nonlabored respirations on room air. Call light is with patient. Contact, safety and fall precautions in place. Will continue to monitor.
[2020-04-26 01:34] VITALS: BP_SYST 108
--- NOTE | 2020-04-26 02:00 | NUR ---
Rounds: Patient sleeping in bed. Showing no signs of acute distress. Breathing is even, nonlabored on room air. Call light is with patient. Safety and fall precautions in place. Will continue to monitor.
--- NOTE | 2020-04-26 04:45 | NUR ---
ROUNDS: PATIENT IS RESTING AT THIS TIME. NO SIGNS OF ACUTE DISTRESS. EVEN, NONLABORED RESPIRATIONS ON ROOM AIR. CALL LIGHT IS WITH PATIENT. SAFETY AND FALL PRECAUTIONS IN PLACE. WILL CONTINUE MONITORING.
[2020-04-26] MEDS: NACL 0.9% 1,000 ML IV SCH ×2 (05:56→21:23)
--- NOTE | 2020-04-26 07:18 | NUR ---
Closing note: Endorsed care to dayshift RN. Patient is in bed, resting. No acute distress. Even, nonlabored breathing on room air. PICC line is received IV fluids as ordered. PICC line dressing is c/d/i. GJ tube receiving tubefeeding as ordered. Hernandez is draining clear, yellow urine to gravity. Wound vac in place with light red drainage. Bed is locked at lowest position. Side rails up x3. Bed alarm is on. Call light is with patient. Contact, safety, and fall precautions in place. Will continue plan of care.
[2020-04-26 08:00] VITALS: BP_SYST 131
--- NOTE | 2020-04-26 08:00 | NUR ---
initial notes rec patient asleep but arousable to stimuli. picc line on the r upper arm intact. no infiltration noted. resp easy and unlabored. no room air. no sob noted. bed to the lowest position and side rails up and locked. call light withn reached . with gt and with jevity feeding and daniel well. no residual noted.
[2020-04-26] MEDS: BALSAM PERU/CASTOR OIL 60 GM OINT...G. TP SCH (10:00)
--- NOTE | 2020-04-26 10:00 | NUR ---
rounds due meds were given and daniel well. am care rendered at bedside . had a watery stool, and kept patient dry and clean.
--- NOTE | 2020-04-26 10:00 | NUR ---
[facility] transfer to network: s/w titus Barragan and Otilia,coordinator # [phone] , requesting update snf placement. Laurel stated, she just assumed the transfer management since yesterday and is new to the case. I updated her with info per dr. Domínguez's note yesterday: Pt is POD #21 for irrigation and excisional rodrigo of decub ulcers. Has wound vac intact. Done with Chynao and Invanz. Still waiting on [facility] to approve/provide bed at [facility]. Pt is stable to be dc'd home, or to [facility] facility. Labs reviewed. Increased IV fluid rate on 04/23/2020. BUN continues to be slightly elevated. Pt tolerating IV fluids OK. Continue wound care/vac to decubitus ulcers. Has good granulation tissue. Seen by Dr. Durham. Has been cleared to be dc'd by Drs. Rosales and Herminio for several days now. >> Laurel made aware that the pt is here day 25, and still no transfer to [facility] arranged. Laurel requested updated info be faxing for to possible transfer pt to [facility]. The info faxed to # [phone]. She will call back with the update. Addendum: 04/26/20 at 1110 by Aj Blackman RN >> Called back from Laurel: said " will transfer pt to [facility] pending bed availability". Addendum: 04/26/20 at 1350 by Aj Blackman RN >> Updated from Laurel: stated " substation operator chief at [facility] is blocking the transfer, not releasing the bed for admission. They are concerning that the pt is difficult for placement. She has involved physician advisor to expedite the transfer. She will update again tomorrow.
[2020-04-26] MEDS: PANTOPRAZOLE SODIUM 40 MG/VIAL (PROTONIX) IVP SCH (10:12)
[2020-04-26] MEDS: APIXABAN 2.5 MG TABLET GT SCH ×2 (10:13→21:22)
[2020-04-26] MEDS: CARVEDILOL 3.125 MG TABLET (COREG) PO SCH ×2 (10:32→21:22)
[2020-04-26] MEDS: AMIODARONE HCL 200 MG TABLET PO SCH (10:32)
--- NOTE | 2020-04-26 11:00 | NUR ---
rounds got a call form kenn[facility] and updated re patient for possible transfer today.
[2020-04-26 11:30] VITALS: BP_SYST 134
--- NOTE | 2020-04-26 12:00 | NUR ---
rounds turned repositioned for comfort. no sob noted. pt close to the nurses station.
[2020-04-26 15:12] VITALS: BP_SYST 120
--- NOTE | 2020-04-26 16:22 | NUR ---
Nutrition F/U Admitting Diagnosis: Sepsis and Acute Cholecystis Medical History Comment: PMH: Dementia, non-verbal, bed bound Pt also found w/ Dysphagia, G-tube dependant, Hepatomegaly, Cardiomegaly, and multiple pressure injuries per MD note. 04/04 S/P debridement sacral decub ulcer 04/05 tolerating Jtube feeding, Fibersource is being provided by family. 04/02: COVID-19 PCR Negative, Negative 04/06 04/06: MD note: Wound vac applied to all ulcers, wound vac changes Q MWF Subjective Information: Pt is POD#23 S/P I&D w/ wound vac. RD visit has been deferred to conserve PPE as pt is on isolation for ESBL/MDR. Per MD notes, pt is still waiting for transfer to [facility] or [facility] waiting on [facility] for plan/confirmation. 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 Pt is receiving Prosource and Tip to aid in would healing. Current EN regimen meets 101% of upper end of estimated calorie needs and 106% of upper end of estimated protein needs daily which is adequate to meet pts nutrition needs. 0-5ml residuals noted per EMR since last RD F/U. Current Diet Order/Nutrition Support: Jevity 1.2 at 55ml/hr, FWF 30ml Q6H via JT w/ Itp BID and Prosource BID Pertinent Medications: Protonix IV, vancomycin, Eliquis, Lipitor Pertinent Labs 04/24 Na 141WNL, K 4.7WNL, BUN 33H, CRE 0.53L, BG 125, 04/02 HbA1c 5.7%H Weight (04/03): 123 pounds/ 55.357633 kilograms Skin Integrity Comment: Sterling scale 14. Documentation Coordinator re-eval note 04/22-- Stage 4 PI Sacrococcygeal area and Unstageable Pressure Injuries on bilateral hip; non pitting edema to the left hand, bilateral generalized edema, and +1 bilateral foot edema noted per EMR Estimated Energy Expenditure (kcals/day) 6122-8782 kcal (30-35 kcal/kg adj. IBW for sepsis, pressure ulcers) Estimated Protein Required (g/day) 77-102 g pro/day (1.5-2.0 g pro/kg adj. IBW for sepsis, pressure ulcers) Estimated Fluid Required (l/day) 9755-8208 ml/day (1ml/kcal/day for normal maintenance) Problem/Etiology/Signs/Symptoms Inadequate protein energy intake related to increased nutritional demands as evidenced by sepsis. (*met on EN) Altered nutrition related labs r/t endocrine dysfunction AEB elevated BG and HbA1c lab values (*ongoing) Increased nutrient needs r/t compromised skin integrity AEB increased protein needs for wound healing and presence of pressure injury. (*new 04/20) Expected Outcomes/Goals Monitor EN support and EN tolerance w/ goal of pt meeting at least 75% of estimated needs, labs trending WNL, normal GI function, skin integrity, and weight maintenance. Dietitian Recommendations *Continue Tip BID and Prosource BID daily for wound healing. *Continue w/ Jevity 1.2 at 55ml/hr, FWF 30ml Q6H via JT. Provides: 1804 kcal, 108gm protein and 1245ml fluids daily Meets: 101% of upper end of estimated calorie needs and 106% of upper end of estimated protein needs. Follow Up High Risk: F/U in 2-3days
--- NOTE | 2020-04-26 18:27 | NUR ---
closing notes resting comfortably. no sob noted. bed to the lowest position and side rails up and locked.
[2020-04-26 19:00] VITALS: BP_SYST 139
--- NOTE | 2020-04-26 19:15 | NUR ---
change of shift.pt.presents isolation status;contact;esbl;urine.pt.presents quiescent affect;calm,resting;withdrawn.pt.presents picc line;location;rt.bicept. pt.presents g/j tube intact;patent g/j tube feed infusing.pt.presents delarosa cath intact;patent urine content present.pt.presents wounds-vac;wounds. intact;patent drainage present.call light/telephone w/in reach of the pt.
[2020-04-26 20:00] VITALS: BP_SYST 139
--- NOTE | 2020-04-26 20:00 | NUR ---
pt.assessed.v/s assessed;note b/p values elevated.pt.assessed for cleanliness.pt.repositioned.i have attended to the oral care;suctioning.picc line intact;patent iv fluids infusing.g/j tube intact;patent g/j tube feed infusing.delarosa cath intact;patent urine content present.wound-vac intact;patent wound drainage present.per flacc pain mgx pt.absent facial grimaces/body posturing.general status stable.respiratory status stable;unlabored 02-sat%=98%@room air.call light/telephone placed w/in access of the pt.
--- NOTE | 2020-04-26 21:00 | NUR ---
2100pmedicatons administered via the g/j tube.g/tube flushed w/out resistance.meds include b/p medication;coreg. to re-assess the b/p status.g/j tube feed residuals assess scant;5ml.
[2020-04-26] MEDS: ATORVASTATIN 20 MG TABLET PO SCH (21:22)
--- NOTE | 2020-04-26 22:00 | NUR ---
pt.assessed.i have attended to the oral care/suctioning.pt.assessed for cleanliness.pt.repositioned.g/j tube intact;patent g/j feed infusing.picc line intact;patent iv fluids infusing.delarosa cath intact;patent urine content present.wound-vac intact;patent wound drainage present. per flacc pain mgx pt.absent facial grimaces/body posturing.general status stable.respiratory status stable;unlabored;02-sat%=98%CALL lIGHT/TELePHone PlACED W/IN ACCESS OF THE PT.
--- NOTE | 2020-04-27 | NUR ---
pt.assessed.v/s assessed.noted b/p values.i have attended to the oral care/suctioned.picc line intact;patent iv fluids infusing. g/j tube intact;patent g/j tube feed infusing.i have administered h20 flush 30ml.wound vac intact;patent drainage present.pt. assessed for cleanliness pt.repositioned.general status stable.respiratory status stable;unlabored;o2-sat%=98%.call light/telephone placed w/in access of the pt.
[2020-04-27 00:18] VITALS: BP_SYST 114
--- NOTE | 2020-04-27 02:00 | NUR ---
pt.assessed.pt.presents quiescent affect;calm,somnolent.per flacc pain mgx pt.absent facial grimaces/body posturing.i have attended to the oral care/suctioning.picc line intact;patent iv fluids infusing.g/j tube intact;patent g/j tube feed infusing.delarosa \cath intact;patent urine content present.pt.assessed for cleanliness.pt.repositioned.wound-vac intact;patent wound drainage present.general status stable.respiratory status stable;unlabored.call light/telephone placed w/in access of the pt.
--- NOTE | 2020-04-27 04:00 | NUR ---
pt.assessed.it is noted the g/j tube is removed.to celestine kraft.r/e:g/j tube displacement.pt.assessed for cleanliness.pt.cleaned.pt.repositioned. picc line intact;patent iv fluids infusing.delarosa cath intact;patent urine content present.wound-vac intact;patent wound drainage present.per flacc pt.absent facial grimaces/body posturing.call light/telephone placed w/in access of the pt.
--- NOTE | 2020-04-27 04:48 | NUR ---
PAGED PAGED DOCTOR UZLY WHO IS WEB APPLICATION TESTER
--- NOTE | 2020-04-27 05:00 | NUR ---
returned the page. ordered placement of a catheter w/in th abdomen orifice.i have placed the catheter#18gr. g/j tube site cleaned.dsg applied.
--- NOTE | 2020-04-27 06:31 | NUR ---
pt.assessed.pt.presents quiescent affect;calm,somnolent.pt.assessed for cleanliness.pt.repositioned.picc line intact;patent iv fluids infusing. per flacc pain mgx pt.absent facial grimaces/body posturing.catheter intact@the g/j tube insertion site.delarosa cath intact;patent urine content present.wound-vac intact;patent wound drainage present.general status stable.respiratory status stable;unlabored;02-sat%=98%.call light/telephone placed w/in access of the pt.
[2020-04-27 07:30] VITALS: BP_SYST 127
--- NOTE | 2020-04-27 07:35 | NUR ---
AM ROUNDS: PATIENT EYES OPEN BUT NON VERBAL DURING ROUNDS. RIGHT UPPER ARM PICC LINE ,IV FLUIDS RUNNING.G TUBE CLAMPED,WAITING FOR GI TO SEE FOR CORRECT PLACEMENT PER CROWN IRONER OPERATOR'S REPORT. ABDOMINAL BINDER ON. MARQUES IN PLACE.CONNECTED TO WOUND VAC ORDERED,LIGHT BROWN COLOR DISCHARGES NOTED AT THE CANISTER.TUBE FEEDS HOLD FOR NOW. BED LOCKED AT LOWEST POSITION. BED ALARM ON. CONTINUE TO MONITOR.
[2020-04-27] MEDS: CARVEDILOL 3.125 MG TABLET (COREG) PO SCH (09:00)
[2020-04-27] MEDS: AMIODARONE HCL 200 MG TABLET PO SCH (09:00)
[2020-04-27] MEDS: APIXABAN 2.5 MG TABLET GT SCH ×2 (09:00→21:00)
--- NOTE | 2020-04-27 09:15 | NUR ---
GI ROUNDS: PATIENT SEEN BY DR REGAN IN THE ROOM. WITH ORDERS FOR KUB GASTROGRAFIN TODAY,TO CHECK IF OKAY TO GIVE MEDS BY G TUBE. FOR J-G TUBE REINSERTION TOMORROW ORDERED.NOTHING BY MOUTH AFTER BREAKFAST IN AM.
[2020-04-27] MEDS: PANTOPRAZOLE SODIUM 40 MG/VIAL (PROTONIX) IVP SCH (09:21)
[2020-04-27] MEDS: BALSAM PERU/CASTOR OIL 60 GM OINT...G. TP SCH (09:23)
[2020-04-27] MEDS ORDERED: GASTROGRAFIN 120 ML ONE (10:02)
[2020-04-27] MEDS: NACL 0.9% 1,000 ML IV SCH (11:31)
[2020-04-27 11:34] VITALS: BP_SYST 131
--- NOTE | 2020-04-27 12:18 | NUR ---
Case mgt: I called [facility] at [phone]--s/w Isma and updated her pt pulled out GJ tube today and has delarosa tube in place (just read notes plan is for NPO and pt will have new GJ tube placed tomorrow am)-has wound vac covering 3 wounds, isolation-per Isma, case has been referred to their long-term team and she will have their cm Gloria call me back-I reiterated that pt has been here 26 days and either needs transfer to their hospital or snf anders. SANDRA RN
--- NOTE | 2020-04-27 13:01 | NUR ---
SIMRAN CALLED: SPOKE WITH ANUPAM FROM [facility] FOR SOME UPDATES GIVEN AND STILL WORKING ON BED PLACEMENT.
--- NOTE | 2020-04-27 13:23 | NUR ---
Case mgt: I s/w Laurel at [facility] at [phone]--she says [facility] still will not take pt due to problematic placement. I explained again pt has been here 26 days, and pt will have GJ tube replacement in am and they need to take pt to their contracted hospital/facility. Per Laurel, she spoke to family who wants pt to go to [facility]. I suggested if we can find an accepting snf, if [facility] will do [facility],per Laurel, they will do [facility] for non-contracted SNF--Mitchell, social media marketing analyst, will assist to find snf to fax snf referral. SANDRA FOSTER
--- NOTE | 2020-04-27 14:33 | NUR ---
RN ROUNDS: PATIENT RESTING DURING ROUNDS. WOUND VAC INTACT AND WORKING. NO DISTRESS.
--- NOTE | 2020-04-27 14:54 | NUR ---
GI MD DR REGAN WAS CALLED, RE: XRAY RESULT OF THE GTUBE PLACEMENT. SPOKE TO ALLISON.
[2020-04-27 15:33] VITALS: BP_SYST 104
--- NOTE | 2020-04-27 16:00 | NUR ---
WOUND VAC CHANGE: SACRAL WOUND CARE RENDERED AND CHANGED WOUND VAC SCHEDULED.
--- NOTE | 2020-04-27 16:24 | NUR ---
SS NOTES/DCP TO SNF: Per CM, pt's family prefers patient to be placed in the [facility] and [facility] is willing to do a letter of agreement. YARD ATTENDANT faxed packet to [facility] (p:[phone], f: [phone]) and spoke to Darci regarding the situation.
--- NOTE | 2020-04-27 18:30 | NUR ---
PAGED: VERIFIED ORDERS WITH DR PETTY,TO DO E-SCRIPT FOR PATIENT PRIOR TO DC C/O [facility] WHERE PATIENT GO. MRCP RESULTS NO STONE PER MD AND RELAYED TO PATIENT. Addendum: 04/27/20 at 1903 by Debbie Sibley RN CORRECTED ABOVE NOTES NOT INTENDED TO ABOVE PATIENT.
--- NOTE | 2020-04-27 19:03 | NUR ---
END OF SHIFT: PATIENT RESTING. PICC LINE IV FLUIDS ON GOING,INTACT. G TUBE CLAMPED,TO CALL GI IF OKAY TO USE TUBE FOR MEDS ONLY. MARQUES IN PLACE. WOUND VAC RUNNING WELL. BED LOCKED AT LOWEST POSITION. CONDITION GUARDED.
[2020-04-27 21:00] VITALS: BP_SYST 125
[2020-04-27] MEDS: ATORVASTATIN 20 MG TABLET PO SCH (21:00)
[2020-04-28] VITALS: BP_SYST 125
--- NOTE | 2020-04-28 06:04 | NUR ---
NOTES: pt. non verbal, withdraws to pain, flaccid extremities. on room air, no distress. IV infusing via PICC line on rt. upper arm. swelling on both upper and lower extremities. delarosa cath to OSD. wound vac on sacral/ bilateral hips wound with serous drainage. maeve anal area reddened, maeve care done, z brendan applied. schedule. g tube intact with abdominal binder. schedule for placement of new gj tube. GI lab nurse here earlier. telephone consent signed, on contact isolation for ESBL urine. pt. unable to use call lioght, frequent rounds and pt. room close to nurses station. bed alarm on.
[2020-04-28] MEDS ORDERED: MIDAZOLAM HCL 5 MG/5 ML VIAL ONE (06:17)
[2020-04-28] MEDS ORDERED: fentaNYL CITRATE/PF 100 MCG/2 ML AMP ONE (06:17)
--- NOTE | 2020-04-28 06:55 | NUR ---
CLOSING NOTES; pt. condition unchanged. kept NPO. for further care and assistance. fall risk. IVF continuous.bed alarm on, wound vac intact.
--- NOTE | 2020-04-28 07:22 | NUR ---
AM ROUNDS: PATIENT SLEEPING DURING ROUNDS. MAINTAINED ON CONTACT ISOLATION PRECAUTION. RIGHT UPPER ARM PICC LINE,DRESSING CLEAN AND DRY. G TUBE CLAMPED.FOR J TUBE PLACEMENT TODAY. HOLD TUBE FEEDS SINCE LAST NIGHT.WOUND VAC INTACT.MARQUES IN PLACE. BED LOCKED AT LOWEST POSITION. BED ALARM ON. CONTINUE TO MONITOR.
[2020-04-28] MEDS: PANTOPRAZOLE SODIUM 40 MG/VIAL (PROTONIX) IVP SCH (08:06)
[2020-04-28 08:07] VITALS: BP_SYST 117
[2020-04-28] MEDS: CARVEDILOL 3.125 MG TABLET (COREG) PO SCH ×2 (09:00→21:41)
[2020-04-28] MEDS: APIXABAN 2.5 MG TABLET GT SCH ×2 (09:00→21:41)
[2020-04-28] MEDS: AMIODARONE HCL 200 MG TABLET PO SCH (09:00)
--- NOTE | 2020-04-28 09:00 | NUR ---
Gi Lab: Patient to gi by staff for GJ peg placement via gurney as ordered in stable condition.
[2020-04-28 09:51] LABS: INR 1.3 (0.8-1.2); PROTHROMBIN TIME 12.8 SECS (9.5-12.5)
[2020-04-28] MEDS ORDERED: GASTROGRAFIN 120 ML ONE (10:35)
--- NOTE | 2020-04-28 11:02 | NUR ---
Back from Gi lab: Patient back from gi lab via [facility] staff Nicole Anguiano reported. Connected patient back to iv fluids. Wound Vac intact.No acute distress.
--- NOTE | 2020-04-28 11:30 | NUR ---
Gi Paged: Left message for Dr. Santana c/o Lizett from exchange.
--- NOTE | 2020-04-28 11:57 | NUR ---
KI KERN Received msg from Fatoumata ANGEL @ [facility], ph [phone], & returned her call. Updated on pt status. States still looking for an accepting SNF, will call once finds one for pt.
[2020-04-28 12:33] VITALS: BP_SYST 108
--- NOTE | 2020-04-28 13:30 | NUR ---
Rn rounds: Patient resting. wound vac intact. not in any distress.
--- NOTE | 2020-04-28 15:30 | NUR ---
Gi Paged: F/u call made to Dr. Santana and left message c/o exchange [facility].
[2020-04-28] MEDS: NACL 0.9% 1,000 ML IV SCH ×2 (16:22→21:49)
[2020-04-28] MEDS: BALSAM PERU/CASTOR OIL 60 GM OINT...G. TP SCH (16:23)
[2020-04-28 17:04] VITALS: BP_SYST 149
--- NOTE | 2020-04-28 17:48 | NUR ---
GI MD CALLED BACK: SPOKE WITH DR REGAN AND RELAYED RESULTS OF KUB GASTROGRAFIN AND WITH ORDERS OKAY TO USE JPORT FOR TUBE FEEDING AND GASTRIC PORT FOR MEDS.RESUME JEVITY 1.2CAL AT 55CC/HR WITH SAME WATER FLUSH ORDER.
--- NOTE | 2020-04-28 18:00 | NUR ---
Tube feed started: Resume Jevity 1.2 arline @ 55cc/h via jejunostomy tube as ordered. Flush with water and went through per Jtube.
--- NOTE | 2020-04-28 18:24 | NUR ---
Closing Notes: Patient awake,non verbal. Right upper arm picc line ,iv fluids running well. J tube feeds on going.Covered with abdominal binder.Hernandez in place. Attached to wound vac intact.Bed locked at lowest position.Bed alarm on. Condition guarded.
--- NOTE | 2020-04-28 19:30 | NUR ---
CHANGE OF SHIFT; PT. AWAKE BUT CALM, NO DISTRESS. ON CONTACT ISOLATION FOR ESBL URINE. ON FALL RISK PRECAUTION.
--- NOTE | 2020-04-28 20:30 | NUR ---
NOTES; pt. non verbal, moans on stimulation. IV infusing. Jejunostomy tube feeding continuous (with gj tube in place). pt. extremities are flaccid, with generalized edema. delarosa cath to OSD , woun=d vac intact for sacral and bilateral hips wound. sequentials on.
[2020-04-28] MEDS: ATORVASTATIN 20 MG TABLET PO SCH (21:37)
[2020-04-29] VITALS: BP_SYST 125
--- NOTE | 2020-04-29 05:06 | NUR ---
NOTES: PICC line dressing changed on rt. upper arm, no signs of infection, site clean, clear op site replaced.
--- NOTE | 2020-04-29 05:30 | NUR ---
NOTES; maeve care done, kept dry, repositioned, turn to side. g j tube intact with abdominal binder. feeding continuous.
--- NOTE | 2020-04-29 06:41 | NUR ---
CLOSING NOTES; IVF patent via PICC line. on fall risk precaution, bed alarm on. for further care and assistance. wound vac intact and wound dressing. on contact isolation for ESBL of urine. will endorse to incoming shift.
--- NOTE | 2020-04-29 07:40 | NUR ---
SEEN AND EXAMINED BY ELENA QUESADA
--- NOTE | 2020-04-29 07:50 | NUR ---
SEEN AND EXAMINED BY ADAM. NIC
--- NOTE | 2020-04-29 08:00 | NUR ---
OPENING NOTE Patient resting in the bed. No acute distress. HOB elevated. On tube feeding of Jevity 1.2 at 55ml/hr, residual 10ml. PICC line intact to MANDIE, no redness, no swelling, no drainage. Covered with clean and dry dressing. Wounds intact to wound vac. F/C intact, drain gravity with jorge urine. On isolation. Safety measure maintained. Call light within reached. Bed locked in low position, side rails up, bed alarm on. Will continue to monitor.
--- NOTE | 2020-04-29 10:08 | NUR ---
[place]: F/U terminal clerk snf placement : Fatoumata is the assigned [place] CM today # [phone] and Jesica, youth care professional # [phone]. Per the CM , still looking for snf, will call back with progress. CM to f/u in am.
[2020-04-29] MEDS: APIXABAN 2.5 MG TABLET GT SCH ×2 (10:17→21:39)
[2020-04-29] MEDS: PANTOPRAZOLE SODIUM 40 MG/VIAL (PROTONIX) IVP SCH (10:17)
[2020-04-29] MEDS: CARVEDILOL 3.125 MG TABLET (COREG) PO SCH ×2 (10:18→21:38)
[2020-04-29] MEDS: AMIODARONE HCL 200 MG TABLET PO SCH (10:19)
[2020-04-29] MEDS: BALSAM PERU/CASTOR OIL 60 GM OINT...G. TP SCH (10:42)
--- NOTE | 2020-04-29 11:09 | NUR ---
SEEN AND EXAMINED BY CRISTY MATTHEWS.
[2020-04-29 12:00] VITALS: BP_SYST 121
--- NOTE | 2020-04-29 12:56 | NUR ---
Nutrition F/U Admitting Diagnosis: Sepsis and Acute Cholecystis Medical History Comment: PMH: Dementia, non-verbal, bed bound Pt also found w/ Dysphagia, G-tube dependant, Hepatomegaly, Cardiomegaly, and multiple pressure injuries per MD note. 04/04 S/P debridement sacral decub ulcer 04/05 tolerating Jtube feeding, Fibersource is being provided by family. 04/02: COVID-19 PCR Negative, Negative 04/06 04/06: MD note: Wound vac applied to all ulcers, wound vac changes Q MWF 04/28 S/P GJ tube replacement by Dr. Santana after pt pulled J tube out. Subjective Information: Pt is POD#26 S/P I&D w/ wound vac. RD visit has been deferred to conserve PPE as pt is on isolation for ESBL/MDR. RD s/w pt's primary RN Casie who reported that pt has been tolerating EN well, only 10cc residuals this morning. EN resumed 04/[address] noted EN order after GJ tube replacement to have 2 orders of Tip BID instead of Tip BID and Prosource BID. RN to verify EN order w/ MD and make changes. Tip has not been administered during RD rounds this morning. Per bed huddle, pt is still a/w transfer to [facility]. Current EN needs to be changed as Prosource is still warranted. Current Diet Order/Nutrition Support: Jevity 1.2 at 55ml/hr, FWF 30ml Q6H via JT w/ Tip BID and Tip BID 04/28 Pertinent Medications: Protonix IV, Eliquis, Lipitor Pertinent Labs 04/24 Na 141WNL, K 4.7WNL, BUN 33H, CRE 0.53L, BG 125, 04/02 HbA1c 5.7%H ---NO NEW LABS Weight (04/03): 123 pounds/ 55.332578 kilograms Skin Integrity Comment: Sterling scale 12. Keypuncher re-eval note 04/22-- Stage 4 PI Sacrococcygeal area and Unstageable Pressure Injuries on bilateral hip; 1+ pitting edema to the left hand, bilateral generalized edema, and 2+ bilateral foot edema noted per EMR Estimated Energy Expenditure (kcals/day) 8406-2164 kcal (30-35 kcal/kg adj. IBW for sepsis, pressure ulcers) Estimated Protein Required (g/day) 77-102 g pro/day (1.5-2.0 g pro/kg adj. IBW for sepsis, pressure ulcers) Estimated Fluid Required (l/day) 8640-7401 ml/day (1ml/kcal/day for normal maintenance) Problem/Etiology/Signs/Symptoms Inadequate protein energy intake related to increased nutritional demands as evidenced by sepsis. (*met on EN) Altered nutrition related labs r/t endocrine dysfunction AEB elevated BG and HbA1c lab values (*ongoing) Increased nutrient needs r/t compromised skin integrity AEB increased protein needs for wound healing and presence of pressure injury. (*new 04/20) Expected Outcomes/Goals Monitor EN support and EN tolerance w/ goal of pt meeting at least 75% of estimated needs, labs trending WNL, normal GI function, skin integrity, and weight maintenance. Dietitian Recommendations *Recommend Tip BID and Prosource BID daily for wound healing. *Continue w/ Jevity 1.2 at 55ml/hr, FWF 30ml Q6H via JT. Provides: 1864 kcal, 108gm protein and 1245ml fluids daily Meets: 104% of upper end of estimated calorie needs and 106% of upper end of estimated protein needs. Follow Up High Risk: F/U in 2-3days
--- NOTE | 2020-04-29 13:04 | NUR ---
Dietitian Recommendations *Recommend Tip BID and Prosource BID daily for wound healing. *Continue w/ Jevity 1.2 at 55ml/hr, FWF 30ml Q6H via JT. Provides: 1864 kcal, 108gm protein and 1245ml fluids daily Meets: 104% of upper end of estimated calorie needs and 106% of upper end of estimated protein needs. Please see Nutrition F/U note for details. PHILLY, RD
--- NOTE | 2020-04-29 13:25 | NUR ---
ROUND Patient resting in the bed. No acute distress. HOB elevated. Tube feeding, tolerated well. F/C intact, drain gravity. PICC intact, IVF infusing well. Isolation maintained. Call light within reached. Bed locked in low position, side rails up, bed alarm on. Continue to monitor.
[2020-04-29 16:00] VITALS: BP_SYST 107
--- NOTE | 2020-04-29 16:05 | NUR ---
ROUND Patient resting in the bed with eye closed. No acute distress. HOB elevated. Continue on tube feeding, tolerated well. PICC intact, IVF infusing well. F/C intact, drain gravity. Isolation maintained. Call light within reached. Bed locked in low position, side rails up, bed alarm on. Continue to monitor.
[2020-04-29] MEDS: NACL 0.9% 1,000 ML IV SCH (16:51)
--- NOTE | 2020-04-29 18:15 | NUR ---
FACE TIME TO DAUGHTER STEFFANIE Addendum: 04/29/20 at 2106 by Louis Martin RN WRONG ENTRY THE PHONE NUMBER SHOULD BE
--- NOTE | 2020-04-29 19:20 | NUR ---
CLOSING NOTE Patient resting in the bed. No acute distress. HOB elevated. On tube feeding of Jevity 1.2 at 55ml/hr, residual 10ml. PICC line intact to MANDIE, no redness, no swelling, no drainage. Covered with clean and dry dressing. Wounds intact to wound vac. F/C intact, drain gravity with jorge urine. Isolation maintained. All needs met. Safety measure maintained. Call light within reached. Bed locked in low position, side rails up, bed alarm on. Wound dressing no done endorse to night nurse Tessy.
--- NOTE | 2020-04-29 19:35 | NUR ---
Opening note Received report from dayshift nurse and assumed care. Isolation precautions for ESBL urine in place. Patient awake and resting in bed; no signs of distress noted at this time. MANDIE picc in place and patent infusing IVF as per orders. Tolerating feeding to J-tube with minimal residuals 10 cc. Requires repositioning and incontinence care which will be provided during shift as needed. Will continue to monitor patient as per unit protocol.
[2020-04-29 20:00] VITALS: BP_SYST 145
[2020-04-29] MEDS: ATORVASTATIN 20 MG TABLET PO SCH (21:37)
[2020-04-29 22:20] VITALS: BP_SYST 116
--- NOTE | 2020-04-29 22:29 | NUR ---
Pt noted with tachypnea and respiratory rates ranging from 36 to 40. Pt also noted to be wheezing. Oral suctioning done and moderate amount of thick whitish secretions noted. Dr. Domínguez was notified and new orders received. IVF converted to saline lock as ordered by Dr. Domínguez.
[2020-04-29] MEDS ORDERED: FUROSEMIDE 40 MG/4 ML VIAL IVP ONE (22:30)
[2020-04-29] MEDS ORDERED: IPRATROPIUM/ALBUTEROL SULFATE 3 ML AMPUL.NEB (DUONEB) INH PRN (22:30)
[2020-04-29] MEDS: NORMAL SALINE 5 ML DISP.SYRIN IVF SCH (22:40)
[2020-04-29 23:10] LABS: HEMATOCRIT 28.1 % (36-48); HEMOGLOBIN 8.5 g/dL (12.0-16.0); MEAN CORPUSCULAR HEMOGLOBIN 25 pg (27-31); MEAN CORPUSCULAR HGB CONC 30 % (32-36); MEAN CORPUSCULAR VOLUME 83 fL (79.0-98.0); PLATELET COUNT (AUTO) 326 K/uL (130-430); RED BLOOD CELL COUNT(AUTO) 3.39 MIL/uL (4.2-6.2); RED CELL DISTRIBUTION WIDTH 20.8 % (9.0-15.0); WHITE BLOOD COUNT (AUTO) 21.4 K/uL (4.8-10.8)
[2020-04-29 23:15] LABS: ANION GAP 8 (5-15); CALCIUM 8.1 mg/dL (8.4-11.0); CREATININE 0.71 mg/dL (0.55-1.30); GLUCOSE 162 mg/dL (70-99); POTASSIUM 3.9 mmol/L (3.5-5.1); SODIUM SERUM 151 mmol/L (136-145); UREA NITROGEN, BLOOD 43 mg/dL (8-21)
[2020-04-29 23:20] LABS: CHLORIDE 120 mmol/L (98-107)
[2020-04-29 23:36] LABS: ATYPICAL LYMPHOCYTES % 0 % (0-0); BAND % (MANUAL) 0 % (0-6); BASOPHILS % (MANUAL) 0 % (0-2); EOSINOPHILS % (MANUAL) 0 % (0-7); LYMPHOCYTES % (MANUAL) 5 % (20-46); MONOCYTES % (MANUAL) 3 % (0-11)
[2020-04-30] VITALS (7 sets, daily range): BP systolic 109–149
--- NOTE | 2020-04-30 00:30 | NUR ---
Pt is tolerating J Tube feeding well. HOB elevated 45 degrees to prevent aspiration. Wound Vac is functioning without any leakage noted.
--- NOTE | 2020-04-30 02:30 | NUR ---
Wound vac without any leakage. Fall, contact isolation and safety precautions are in place.
--- NOTE | 2020-04-30 04:30 | NUR ---
Pt is awake and no acute distress noted. J Tube feeding is infusing well. Wound vac without any leakage noted. Bed alarm is on and bed is in the lowest and locked positions.
--- NOTE | 2020-04-30 05:45 | NUR ---
Wound care completed as per orders. Wound vac x 3 replaced and seal verified by pump. Pictures and documentation completed. Patient tolerated procedure well.
--- NOTE | 2020-04-30 06:19 | NUR ---
PAGED DR. BELLO I PAGED DR. BELLO ON HIS PERSONAL PAGER TO LET HIM KNOW ABOUT CONSULTATION UNTIL NOW SHE HAS NOT CALL US BACK
[2020-04-30 06:30] LABS: ANION GAP 8 (5-15); CALCIUM 8.1 mg/dL (8.4-11.0); CHLORIDE 118 mmol/L (98-107); CREATININE 0.63 mg/dL (0.55-1.30); GLUCOSE 146 mg/dL (70-99); POTASSIUM 3.5 mmol/L (3.5-5.1); SODIUM SERUM 152 mmol/L (136-145); UREA NITROGEN, BLOOD 40 mg/dL (8-21)
--- NOTE | 2020-04-30 06:45 | NUR ---
CXR result read to Dr. Domínguez and new orders received. Dr. Domínguez also notified of critical Chloride lab result. Dr. Domínguez stated he will see pt this AM.
[2020-04-30] MEDS: NORMAL SALINE 5 ML DISP.SYRIN IVF SCH (06:55)
--- NOTE | 2020-04-30 08:00 | NUR ---
initial notes rec patient awake but non verbally responsive. r upper picc line intact. no infiltration noted. dr velasquez art bedside and with new orders. gt feeding no residual noted. bed to the lowest positiona nd side rails up and locked. bpt close to the nurses station.
[2020-04-30] MEDS ORDERED: 0.45% NACL 1,000 ML IV SCH (08:30)
[2020-04-30] MEDS ORDERED: cefTRIAXone 1 GM in D5W 50 ML IV SCH (09:00)
[2020-04-30] MEDS: metroNIDAZOLE 500 mg/NS 100 ML IV SCH ×3 (09:07→21:22)
[2020-04-30] MEDS: PANTOPRAZOLE SODIUM 40 MG/VIAL (PROTONIX) IVP SCH (09:08)
[2020-04-30] MEDS: AMIODARONE HCL 200 MG TABLET PO SCH (09:10)
[2020-04-30] MEDS: CARVEDILOL 3.125 MG TABLET (COREG) PO SCH ×2 (09:11→21:22)
[2020-04-30] MEDS: APIXABAN 2.5 MG TABLET GT SCH ×2 (09:12→21:21)
[2020-04-30] MEDS ORDERED: FLUCONAZOLE 200 mg/ NS 100 ML IV ONE (10:00)
--- NOTE | 2020-04-30 10:01 | NUR ---
DC Planning: updated pt's status to Anthony Snider at [place], elevated WBC/new onset leukocytosis, starts on Rocephin and Flagyl. elevated Chloride, JT replacement yesterday, Esbl UA, St 4 Sacral wound with wound vac, GT feeding . I requested pt transfer to acute instead of to snf. Agahta will present the info to her medical team for possible transfer to [facility]. (Said, the pt belongs to [facility] location). Agatha tel # [phone].
--- NOTE | 2020-04-30 11:00 | NUR ---
rounds due abx in progress. no sob noted. bed to the lowest positon and side rails up and locked.
[2020-04-30] MEDS: BALSAM PERU/CASTOR OIL 60 GM OINT...G. TP SCH (11:33)
--- NOTE | 2020-04-30 13:45 | NUR ---
Wound Vac Troubleshooting: Late note for 04/30/2020 at 1345 secondary to patient care. Performed troubleshooting on wound vac, applied Y connecter to connect all three wounds. Vac is operating properly.
--- NOTE | 2020-04-30 17:35 | NUR ---
DC Planning: LVM to Destini Padilla, daughter, conservator, to notify dcp per [place] to transfer pt to [facility] today. Also called Wendy Reynolds, granddaughter, caregiver, asknig her to contact Destini and to call [place] [facility] for more infomation.
--- NOTE | 2020-04-30 18:40 | NUR ---
closingnotes got a call from [facility] and will take patient tonight. no sob noted.
--- NOTE | 2020-04-30 19:30 | NUR ---
Opening note Received patient after report from dayshift nurse and assumed care. Patient in isolation room for ESBL Ecoli of urine. Orders for transfer to [facility] received and arranged. Patient's wound vac x [address] and being discontinued for transfer by Tessy FOSTER. Wounds will be dressed with moist dressing. No signs of distress or pain. Requires full assistance for care and repositioning. IV site MANDIE picc in place and patent. will continue to monitor patient as per unit protocol.
--- NOTE | 2020-04-30 19:45 | NUR ---
WOUND CARE TO LEFT HIP, RIGHT HIP AND SACRUM PERFORMED. WOUND VAC WAS DISCONNECTED FROM ALL WOUNDS. WOUNDS WERE CLEANSED WITH NORMAL SALINE, MOIST SALINE 4 X 4 GAUZE DRESSINGS WERE PLACED IN EACH WOUND BEDS, FOLLOWED BY DRY 4 X 4 GAUZE DRESSINGS AND ABD PADS. DRESSINGS WERE SECURED WITH 2 INCHES PAPER TAPE. SMALL AMOUNT OF PINKISH DRAINAGE NOTED. PT TOLERATED DRESSING CHANGE WELL.
--- NOTE | 2020-04-30 19:58 | NUR ---
Per [place] sales account representative patient will be picked up at 2030 by [facility] service. Recent vital signs provided.
--- NOTE | 2020-04-30 20:25 | NUR ---
REPORT WAS GIVEN TO NAIDA AT [facility] IN [place]. PER NAIDA, THEIR [facility] IS REQUESTING A CURRENT COVID-19 TEST WITH THE RESULT PRIOR TO TRANSFERRING PT TO [facility]. NAIDA STATED THE REASON IS THEIR UNIT HAS CHEMOTHERAPY PATIENTS. WILL NOTIFY DR. QUIROZ.
--- NOTE | 2020-04-30 20:40 | NUR ---
RAPID COVID-19 TEST COLLECTED ORDERED BY DR. CHAVES AND SENT TO THE LAB.
--- NOTE | 2020-04-30 20:57 | NUR ---
RN SPOKE WITH MICHAEL IN THE LAB AND HE STATED RAPID COVID-19 TEST IS BEING PERFORMED AT THIS TIME AND THE RESULT WILL TAKE ABOUT ONE HOUR.
[2020-04-30] MEDS: ATORVASTATIN 20 MG TABLET PO SCH (21:21)
--- NOTE | 2020-04-30 21:27 | NUR ---
NAIDA AT [facility] NOTIFIED OF PT'S COVID-19 NEGATIVE RESULT.
--- NOTE | 2020-04-30 21:50 | NUR ---
PT WAS TRANSFERRED TO [facility] IN STABLE CONDITION. PRIOR TO TRANSFER, GJ TUBE WAS FLUSHED WITH 50ML WATER AND CLAMPED. BOTH PICC LUMENS WERE EACH FLUSHED WITH 10ML SALINE FLUSHES AND CAPPED. PT'S WRIST ID BAND WAS REMOVED AND PLACED IN THE SHREDDER. PLAIN WRIST BAND WITH PT'S NAME AND WAS APPLIED TO PT'S WRIST.
--- NOTE | 2020-04-30 22:10 | NUR ---
RETURNED TELEPHONE CALL TO PT'S DAUGHTER SONAL AND LEFT A VOICE MAIL MESSAGE FOR A CALL BACK.
--- NOTE | 2020-04-30 22:20 | NUR ---
PT'S DAUGHTER SONAL CALLED BACK AND WAS GIVEN KHALIL'S INFORMATION PER HER REQUEST.
== END 2020-04-30 21:50 | disposition short-term general hospital (02) | DRG 853 ==
LOC: SED 19:06 → STU 23:18 → SMU 04-12 09:00
PROVIDERS: ADMIT Hospitalist; ATTEND Hospitalist
PROC: 0DHA3UZ Insertion of Feeding Device into Jejunum, Percutaneous Approach (ICD-10-PCS; 2020-03-28)
PROC: 0KBN0ZZ Excision of Right Hip Muscle, Open Approach (ICD-10-PCS; 2020-04-03)
PROC: 0JB70ZZ Excision of Back Subcutaneous Tissue and Fascia, Open Approach (ICD-10-PCS; 2020-04-03)
PROC: 0DPDXUZ Removal of Feeding Device from Lower Intestinal Tract, External Approach (ICD-10-PCS; 2020-04-03)
PROC: 0DHA3UZ Insertion of Feeding Device into Jejunum, Percutaneous Approach (ICD-10-PCS; 2020-04-03)
PROC: 0KBP0ZZ Excision of Left Hip Muscle, Open Approach (ICD-10-PCS; principal; 2020-04-03 16:00)
PROC: B548ZZA Ultrasonography of Superior Vena Cava, Guidance (ICD-10-PCS; 2020-04-08)
PROC: 02HV33Z Insertion of Infusion Device into Superior Vena Cava, Percutaneous Approach (ICD-10-PCS; 2020-04-08)
DX: A41.1 Sepsis due to other specified staphylococcus (principal); L89.154 Pressure ulcer of sacral region, stage 4; E43 Unspecified severe protein-calorie malnutrition; J69.0 Pneumonitis due to inhalation of food and vomit; J96.01 Acute respiratory failure with hypoxia; G93.41 Metabolic encephalopathy; N39.0 Urinary tract infection, site not specified; E87.1 Hypo-osmolality and hyponatremia; Z16.12 Extended spectrum beta lactamase (ESBL) resistance; D68.9 Coagulation defect, unspecified; K31.6 Fistula of stomach and duodenum; K94.13 Enterostomy malfunction; K80.00 Calculus of gallbladder with acute cholecystitis without obstruction; E83.39 Other disorders of phosphorus metabolism; E86.0 Dehydration; D50.9 Iron deficiency anemia, unspecified; B96.20 Unspecified Escherichia coli [E. coli] as the cause of diseases classified elsewhere; Z74.01 Bed confinement status; Z86.73 Personal history of transient ischemic attack (TIA), and cerebral infarction without residual deficits; D63.8 Anemia in other chronic diseases classified elsewhere; F02.80 Dementia in other diseases classified elsewhere, unspecified severity, without behavioral disturbance, psychotic disturbance, mood disturbance, and anxiety; G30.9 Alzheimer's disease, unspecified; I48.91 Unspecified atrial fibrillation; K83.8 Other specified diseases of biliary tract; R13.10 Dysphagia, unspecified; R56.9 Unspecified convulsions; R62.7 Adult failure to thrive; R73.03 Prediabetes; R74.0 Nonspecific elevation of levels of transaminase and lactic acid dehydrogenase [LDH]; Z20.828 Contact with and (suspected) exposure to other viral communicable diseases; L89.220 Pressure ulcer of left hip, unstageable; L89.210 Pressure ulcer of right hip, unstageable; Y83.8 Other surgical procedures as the cause of abnormal reaction of the patient, or of later complication, without mention of misadventure at the time of the procedure; Y82.9 Unspecified medical devices associated with adverse incidents; Z68.22 Body mass index [BMI] 22.0-22.9, adult; Z87.01 Personal history of pneumonia (recurrent); Z88.0 Allergy status to penicillin
CPT/HCPCS: 36415; 43760; 70450-TC; 71045; 74240-TC; 76705; 78226; 80048; 80053; 80202-TC; 81000-TC; 82150-TC; 83036; 83540-TC; 83550-TC; 83605; 83615-TC; 83690-TC; 83735-TC; 84100-TC; 84484; 85007; 85025; 85027; 85610-TC; 87040-TC; 87070; 87070-TC; 87081; 87086; 87186-TC; 88304; 88305; 93005; 94760; 96365; 96367; 96368; 99291; A9537; C1751; C9113; G0378; J0360; J0696; J1335; J1450; J1940; J2060; J2250; J2270; J2274; J3010; J3370; J3490; J7030; J7042; J7050; J7060; J7120; Q9963; U0003-CS